=== PATIENT | male | born 1935 | race Caucasian/White ===

== ENCOUNTER 2016-08-09 20:18 | Inpatient (IN) | payer OTHER, BC ==
[~2016-08-09] VITALS: Ht 177.8 cm; Wt 81.6 kg
[~2016-08-09 20:18] MED LIST: AMLO-114 PO; ASCO500T3 PO; ASPCH81X PO; B-COTAB18 PO; CHOL100027 PO; COEN75CA PO; GLIM1TAB2 PO; LISI40TA PO; MULTTAB PO; NITR0.4S UT
[2016-08-09] MEDS ORDERED: SODIUM CHLORIDE 0.9% 1000ML 1,000 ML IV SCH (21:01)
[2016-08-09 21:18] LABS: BASO % 0.8 %; BASO ABS # 0.05 K/uL (0-0.2); COMPLETE YES; EOS % 8.6 %; IG% 0.2 %; LYMPH % 26.7 %; LYMPH ABS # 1.71 K/uL (1.2-3.4); MEAN CELL VOLUME 84.3 fL (80-100); MEAN CORPUSCULAR HEMOGLOBIN 30.3 pg (25-34); MEAN CORPUSCULAR HGB CONC 35.9 g/dl (32-36); MONO % 8.7 %; PLATELET COUNT 137 K/uL (130-400); RED BLOOD COUNT 5.22 M/uL (4.7-6.1); WHITE BLOOD COUNT 6.41 K/uL (4.8-10.8)
[2016-08-09 21:28] LABS: PROTHROMBIN TIME (PATIENT) 10.7 SECONDS (9.0-12.0)
[2016-08-09 21:38] LABS: BUN/CREATININE RATIO 27.5 (10-20); CALCIUM 9.4 mg/dl (8.5-10.1); CREATININE 1.5 mg/dl (0.60-1.40); POTASSIUM 4.4 mmol/L (3.5-5.1)
--- NOTE | 2016-08-09 21:50 | DIAGNOSTIC IMAGING REPORT ---
HEAD CT NONCONTRAST CT DOSE: 601.98 mGy.cm HISTORY: Stroke symptoms TECHNIQUE: Multiaxial CT images of the head were performed without the use of intravenous contrast. Automated exposure control was utilized for this study. Comparison: Head CT 03/19/2010. Findings: The paranasal sinuses and mastoid air cells are clear. The calvarium and skull base are intact. There is no mass, hematoma, midline shift, acute infarct. White matter hypodensity is nonspecific but suggestive of microvascular ischemic change. The ventricles and sulci demonstrate mild age-related involutional changes. There are few old small lacunar infarcts seen within the right thalamus and right periventricular white matter. Impression: No acute intracranial abnormality. Atrophy and microvascular ischemic changes. A few old lacunar infarcts. Electronically signed by: Arcadio Blackmon M.D. 08/09/2016 9:49 PM Dictated Date/Time: 08/09/2016 9:45 PM
[2016-08-09] MEDS ORDERED: ASPIRIN 81 MG CHEW PO STA (21:53)
[2016-08-09] MEDS ORDERED: ASCO500T16 PO (21:58)
[2016-08-09] MEDS ORDERED: MULT-506 PO (21:58)
[2016-08-09] MEDS ORDERED: B-COTAB18 PO (21:58)
[2016-08-09] MEDS ORDERED: CHOL1000 PO (21:58)
[2016-08-09 22:06] LABS: BETA-HYDROXYBUTYRATE 2.21 mg/dL (0.2-2.81); CKMB/CK RATIO 6.4 (0-3.0)
[2016-08-09 22:29] LABS: BENZODIAZEPINE, URINE NEG (NEG); COCAINE,URINE NEG (NEG); PHENCYCLIDINE, URINE NEG (NEG)
[2016-08-09] MEDS ORDERED: NITROGLYCERIN 0.4 MG SL PER TAB CHARGE SL PRN (23:00)
[2016-08-09] MEDS ORDERED: ACETAMINOPHEN 325 MG TAB PO PRN (23:00)
[2016-08-09] MEDS ORDERED: ONDANSETRON INJ 2 MG/ML 2 ML VIAL IV PRN (23:00)
[2016-08-09] MEDS ORDERED: NITROGLYCERIN 0.4 MG SL PER TAB CHARGE UT PRN (23:00)
[2016-08-09] MEDS ORDERED: LISI-729 PO (23:51)
[2016-08-09] MEDS ORDERED: GLC/500 PO (23:51)
[2016-08-10] VITALS (7 sets, daily range): BP systolic 117–196; BP diastolic 67–88; PULSE 59–74; TEMP 36.3–36.9; O2SAT 95–98; BMI 25.0
--- NOTE | 2016-08-10 | EMERGENCY ROOM VISIT NOTE ---
History Report prepared by Angélica: Ning Almonte Under the Supervision of: Dr. Miky Ang D.O. First contact with patient: 20:44 Chief Complaint: STROKE SYMPTOMS Stated Complaint: WEAKNESS History of Present Illness The patient is a 81 year old male who presents to the Emergency Room with complaints of resolved stoke-like symptoms that started 2 hours ago, around 1844. The patient came to the ED via ambulance The patient states that his felt like he was disoriented at dinner today. He states that his cooked [place]-like noodles for dinner and they are thin and look like spaghetti. While he was eating, his noticed a left-sided facial droop while a noodle was hanging out of the left side of his mouth. She also thought that he was having trouble finding the lid for the soy sauce. The patient's proceeded to call 911. The patient's is not at bedside yet, but she is coming. The patient states that he feels well and did not notice any of his symptoms. He denies chest pain, shortness of breath, nausea, vomiting, diarrhea, abdominal pain, and any weakness or numbness of his arms or legs. The patient also denies any recent trauma to his head. The patient states that he had a WI in April of 2013. The patient also states that he had two TIAs with the most recent being 6 years ago. The patient is not on any blood thinners, but occasionally takes a baby aspirin. With previous TIAs, he could tell that he had slurred speech but he felt well enough to drive himself to the hospital both times. Source of History: patient Onset: 2 hours ago, around 1844 Position: other (global) Quality: other (stroke-like symptoms) Timing: resolved Associated Symptoms: No SOB, No abdominal pain, No chest pain, No diarrhea, No nausea, No numbness, No vomiting, No weakness Review of Systems See HPI for pertinent positives & negatives. A total of 10 systems reviewed and were otherwise negative. Past Medical & Surgical Medical Problems: (1) ACS (acute coronary syndrome) (2) basal cell carcinoma back (3) Basal cell carcinoma of ear (4) Basal cell carcinoma of lower extremity (5) Benign hypertension (6) CAD (coronary artery disease) (7) Cerebrovascular disease (8) Chest pain (9) CKD (chronic kidney disease), stage III (10) Coronary artery disease (11) Diabetes mellitus type 2 (12) Dyslipidemia (13) Elevated Topronin (14) Elevated troponin (15) History of left bundle branch block (LBBB) (16) HTN (hypertension) (17) Hypertensive Urgency (18) Ischemic cardiomyopathy (19) Myocardial infarct (20) ALIDA on CPAP (21) Symptomatic sinus bradycardia (22) TIA (transient ischemic attack) Surgical Problems: (1) Cardiac pacemaker in situ (2) Percutaneous transluminal coronary angioplasty status Family History No pertinent family history Social History Smoking Status: Former Smoker Marital Status: Current/Historical Medications Scheduled Ascorbic Acid (Ascorbic Acid), 500 MG PO DAILY Aspirin (Aspirin Chewable), 81 MG PO DAILY B-Complex Vitamins (Vitamin B Complex), 1 TAB PO DAILY Coenzyme Q10 (Ubidecarenone) (Co Q-10), 1 CAP PO DAILY Lisinopril (Zestril), PO DAILY Metformin Hcl (Glucophage), PO BID Multivitamin (Multivitamin), 1 TAB PO DAILY Scheduled PRN Nitroglycerin (Nitrostat), 0.4 MG UT UD PRN for Chest Pain Allergies Coded Allergies: Clonidine (Verified Adverse Reaction, Severe, SEVERE BRADYCARDIA, 08/09/16) Physical Exam Vital Signs Date Time Temp Pulse Resp B/P Pulse Ox O2 Delivery O2 Flow Rate FiO2 08/09/16 21:56 61 18 159/81 94 Room Air 08/09/16 21:17 99 Room Air 08/09/16 20:51 60 08/09/16 20:30 36.5 72 18 200/122 99 Room Air 178/80 Physical Exam GENERAL: alert, sitting up in bed, well appearing, well nourished, no distress, non-toxic EYE EXAM: normal conjunctiva, PERRL and EOM's intact OROPHARYNX: no exudate, no erythema, lips, buccal mucosa, and tongue normal and mucous membranes are moist NECK: supple, no nuchal rigidity, no adenopathy, non-tender LUNGS: Clear to auscultation. Normal chest wall mechanics HEART: no murmurs, S1 normal and S2 normal ABDOMEN: abdomen soft, non-tender, normo-active bowel sounds, no masses, no rebound or guarding. BACK: Back is symmetrical on inspection and there is no deformity, no midline tenderness, no CVA tenderness. SKIN: no rashes and no bruising UPPER EXTREMITIES: upper extremities are grossly normal. LOWER EXTREMITIES: No pitting edema. NEURO EXAM: Normal sensorium, cranial nerves II-XII intact, normal speech, no weakness of arms, no weakness of legs. No drift. Finger to nose intact. Gross sensation intact. Medical Decision & Procedures ER Provider Diagnostic Interpretation: CT results have been interpreted by the radiologist and reviewed by me. HEAD CT NONCONTRAST Impression: No acute intracranial abnormality. Atrophy and microvascular ischemic changes. A few old lacunar infarcts. Electronically signed by: Arcadio Blackmon M.D. 08/09/2016 9:49 PM Dictated Date/Time: 08/09/2016 9:45 PM Laboratory Results 08/09/16 20:39 Red Blood Count 5.22, Mean Corpuscular Volume 84.3, Mean Corpuscular Hemoglobin 30.3, Mean Corpuscular Hemoglobin Concent 35.9, Mean Platelet Volume 10.0, Neutrophils (%) (Auto) 55.0, Lymphocytes (%) (Auto) 26.7, Monocytes (%) (Auto) 8.7, Eosinophils (%) (Auto) 8.6, Basophils (%) (Auto) 0.8, Neutrophils # (Auto) 3.53, Lymphocytes # (Auto) 1.71, Monocytes # (Auto) 0.56, Eosinophils # (Auto) 0.55, Basophils # (Auto) 0.05 08/09/16 20:39 Test 08/09/16 20:39 08/09/16 21:17 08/09/16 22:01 White Blood Count 6.41 K/uL (4.8-10.8) Red Blood Count 5.22 M/uL (4.7-6.1) Hemoglobin 15.8 g/dL (14.0-18.0) Hematocrit 44.0 % (42-52) Mean Corpuscular Volume 84.3 fL (80-100) Mean Corpuscular Hemoglobin 30.3 pg (25-34) Mean Corpuscular Hemoglobin Concent 35.9 g/dl (32-36) Platelet Count 137 K/uL (130-400) Mean Platelet Volume 10.0 fL (7.4-10.4) Neutrophils (%) (Auto) 55.0 % Lymphocytes (%) (Auto) 26.7 % Monocytes (%) (Auto) 8.7 % Eosinophils (%) (Auto) 8.6 % Basophils (%) (Auto) 0.8 % Neutrophils # (Auto) 3.53 K/uL (1.4-6.5) Lymphocytes # (Auto) 1.71 K/uL (1.2-3.4) Monocytes # (Auto) 0.56 K/uL (0.11-0.59) Eosinophils # (Auto) 0.55 K/uL (0-0.5) Basophils # (Auto) 0.05 K/uL (0-0.2) RDW Standard Deviation 39.3 fL (36.4-46.3) RDW Coefficient of Variation 12.8 % (11.5-14.5) Immature Granulocyte % (Auto) 0.2 % Immature Granulocyte # (Auto) 0.01 K/uL (0.00-0.02) Prothrombin Time 10.7 SECONDS (9.0-12.0) Prothromb Time International Ratio 1.0 (0.9-1.1) Activated Partial Thromboplast Time 26.0 SECONDS (21.0-31.0) Partial Thromboplastin Ratio 1.0 Anion Gap 11.0 mmol/L (3-11) Est Creatinine Clear Calc Drug Dose 40.6 ml/min Estimated GFR () 50.2 Estimated GFR (Non- 43.3 BUN/Creatinine Ratio 27.5 (10-20) Calcium Level 9.4 mg/dl (8.5-10.1) Total Creatine Kinase 84 U/L (39-308) Creatine Kinase MB 5.4 ng/ml (0.5-3.6) Creatine Kinase MB Ratio 6.4 (0-3.0) Troponin I 0.294 ng/ml (0-0.045) Beta-Hydroxybutyric Acid 2.21 mg/dL (0.2-2.81) Bedside Prothrombin Time INR 0.9 (0.9-1.1) Bedside Glucose 319 mg/dl (70-99) Urine Opiates Screen NEG (NEG) Urine Methadone, Qualitative NEG (NEG) Urine Barbiturates NEG (NEG) Urine Phencyclidine (PCP) Level NEG (NEG) Ur Amphetamine/Methamphetamine NEG (NEG) MDMA (Ecstasy) Screen NEG (NEG) Urine Benzodiazepines Screen NEG (NEG) Urine Cocaine Metabolite NEG (NEG) Urine Marijuana (THC) NEG (NEG) Laboratory results per my review. Medications Administered Medications (Trade) Dose Ordered Sig/Shamir Route Start Time Stop Time Status Last Admin Dose Admin Sodium Chloride (Nss 1000ml) 1,000 ml @ 50 mls/hr Q20H IV 08/09/16 21:01 09/08/16 21:00 08/09/16 21:01 50 MLS/HR Aspirin (Aspirin Chew) 324 mg NOW STAT PO 08/09/16 21:53 08/09/16 21:54 DC 08/09/16 22:15 324 MG ECG Indication: weakness Rate (beats per minute): 65 Rhythm: other (atrial paced) Findings: left axis deviation, other (LBBB) ED Course ED COURSE: Vital signs were reviewed and showed hypertension. The patients medical record was reviewed The above diagnostic studies were performed and reviewed. ED treatments and interventions as stated above. 2046: The patient was evaluated in room C3. A complete history and physical examination was performed. 2100: Ordered Sodium Chloride 1000 ml @ 50 mls/hr IV 2133: I reassessed the patient and he is feeling well. He just got back from CT and his is at bedside. His notes that he was confused and had trouble walking and using his left eye. She also noticed a facial droop. 2152: Ordered Aspirin 324 mg PO 2205: Upon reevaluation, the patient is resting comfortably. I discussed my findings with the patient and he understands and agrees with the treatment plan. Based on the patients age, coexisting illnesses, exam and lab findings the decision to treat as an inpatient was made. The patient remained stable while under my care. The patient will be evaluated for further management. 2207: I reviewed the patient's case with Dr. Sonal Xie. He will evaluate the patient for further management. Medical Decision Differential Diagnosis includes but is not limited to ischemic Stroke, hemorrhagic stroke, bells palsy, mass, neoplasm, migraine headache, seizure, subarachnoid hemorrhage, TIA, and transient global amnesia. Patient is an 81-year-old male who presents the ER brought in by ALS for stroke like symptoms. He was sitting at dinner table with his who noticed a left- sided facial droop, confusion and noticed that he was having trouble using his left arm. He does have a previous WI and 2 previous TIAs. Patient is completely at his baseline now. Completely neurologically intact. CT head was unremarkable. CBC was unremarkable. Creatinine was 1.5. Troponin was elevated at 0.29. Again he had no chest pain or shortness of breath. I'm uncertain of the significance of this. He has absolutely no chest pain or shortness of breath as discussed above. This be extremely atypical for any Dissection without any pain and consequently I did not perform any additional imaging. He was given aspirin following the negative CT head. EKG showed an atrial paced rhythm with a left axis and left bundle. No obvious signs of ischemia. He was allowed to have progressive hypertension for the likely TIA. Patient and family were updated at bedside. He was admitted to internal medicine with strokelike symptoms and elevated troponin. Consults Time Called: 2202 Consulting Physician: Dr. Sonal Xie Returned Call: 2207 I reviewed the patient's case with Dr. Sonal Xie. He will evaluate the patient for further management. Impression Primary Impression: TIA (transient ischemic attack) Additional Impressions: Elevated troponin HTN (hypertension) Scribe Attestation The scribe's documentation has been prepared under my direction and personally reviewed by me in its entirety. I confirm that the note above accurately reflects all work, treatment, procedures, and medical decision making performed by me. Departure Information Dispostion Being Evaluated By Hospitalist Wang Fernandez MD (PCP) Patient Instructions My [facility] Problem Qualifiers Primary Impression: TIA (transient ischemic attack) Transient cerebral ischemia type: unspecified Qualified Codes: G45.9 - Transient cerebral ischemic attack, unspecified Additional Impressions: HTN (hypertension) Hypertension type: unspecified secondary hypertension Qualified Codes: I15.9 - Secondary hypertension, unspecified
[2016-08-10] MEDS ORDERED: GLUCOSE 40% GEL 15 GM TUBE PO PRN (00:15)
[2016-08-10] MEDS ORDERED: DEXTROSE 50% 50 ML SYR IV PRN (00:15)
[2016-08-10] MEDS ORDERED: GLUCAGON FOR INJ 1 MG VIAL SQ PRN (00:15)
[2016-08-10] MEDS ORDERED: GLUCOSE 10 TABS/TUBE PO PRN (00:15)
[2016-08-10] MEDS ORDERED: HEPARIN IV BOLUS 4,000 UNIT in SYRINGE 0 ML IV ONE (01:30)
[2016-08-10] MEDS ORDERED: HEPARIN 25,000 UNIT/500ML D5W 500 ML IV PRN (01:30)
--- NOTE | 2016-08-10 02:15 | HISTORY & PHYSICAL EXAMINATION ---
DATE OF ADMISSION: 08/09/2016 PRIMARY CARE PROVIDER: Wang Nieto MD CHIEF COMPLAINT: Drooping and drooling from left side of the face at dinner tonight. HISTORY OF PRESENT COMPLAINT: He is an 81-year-old male with significant past medical history including chronic kidney disease, CAD status post old [place] and status post cardiac stent x2, ischemic cardiomyopathy, diabetes type 2, sinus node dysfunction status post pacemaker, hypertension, hyperlipidemia and also a history of obstructive sleep apnea. Apparently has been complaining of drooping and drooling from the left side of the face at dinner tonight. It was noticed by the that the food has been falling from the left side of the face and also some drooping on the same side. Later on, he has had some issues with coordination, especially involving the left upper extremity but did not have any other symptoms. With the history of TIA, they decided to come to the Emergency Room. He denies to have any headache, any blurred vision, any numbness, tingling or heaviness involving the face or any side of the body, any weakness involving any side of the body as well and all of the symptoms resolved in the Emergency Room. When asking questions, he mentioned that he has had an episode of difficulty in speech yesterday when he was driving back from [place] and on the way he has had this speech problem that lasted for a few minutes, but he did not tell it to anybody. He denies to have any chest pain, any shortness of breath, any palpitations. He does not have any fever, chills or rigors and denies to have any problem with urine and/or bowel habit. In the ER, he was hemodynamically stable without any neuro deficit and apparent blood test came back negative except troponin was noted to be 0.2. From that point, he was advised for admission to the telemetry unit. PAST MEDICAL HISTORY: Significant for CAD status post NSTEMI and status post cardiac stent placement, chronic kidney disease, ischemic cardiomyopathy, diabetes with diabetic retinopathy, hypertension, hyperlipidemia, malignant neoplasm of skin, obstructive sleep apnea, sinus node dysfunction status post cardiac pacemaker. PAST SURGICAL HISTORY: Significant for cardiac stent x2 and pacemaker placement, Mohs surgery involving the skin, umbilical hernia repair at the age of 6. FAMILY HISTORY: Significant that parents and siblings have history of hypertension, diabetes. SOCIAL HISTORY: He is . He has 5 children. He quit smoking 40 years ago. He does not drink and he has been quite active. ALLERGIES: HE IS ALLERGIC TO CLONIDINE. MEDICATIONS: He has been on ascorbic acid 500 mg daily, aspirin 81 mg daily, B complex 1 tablet daily, vitamin D3 1000 units daily, coenzyme Q10 75 mg daily, multivitamin 1 tablet daily, Nitrostat 0.4 mg daily. He also takes amlodipine 10 mg daily, atorvastatin 40 mg daily, Amaryl 1 mg daily, lisinopril 40 mg daily, hydralazine 1 tablet 3 times daily, ferrous sulfate 325 mg daily. REVIEW OF SYSTEMS: Other systems reviewed are unremarkable except mentioned in the H\T\P. PHYSICAL EXAMINATION: GENERAL: On examination in the Emergency Room, he was not having any acute distress. VITAL SIGNS: Temperature 36.5, pulse of 61, blood pressure 159/81, saturation 94% on room air. HEENT: Unremarkable. No facial asymmetry. NECK: Supple, no JVD, no bruit. CHEST: Clear to auscultation bilaterally. HEART: S1, S2 regular. ABDOMEN: Soft, benign, nontender, no organomegaly. Bowel sounds present. EXTREMITIES: Negative for any edema. MUSCULOSKELETAL: Did not show any acute arthritis involving any joint. CENTRAL NERVOUS SYSTEM: He was alert, awake, oriented x3 and no focal sensory and/or motor deficit appreciated. LABORATORY DATA: Noted today, white count was 6.41, H\T\H 15.8/44.0, platelet was 137. Sodium 134, potassium 4.4, chloride 98, carbon dioxide 25, BUN 41, creatinine 1.50, POC glucose 319, random glucose 314. CK was 84, MB 5.4 and troponin was 0.294. Beta hydroxybutyric acid 2.21. PT/INR unremarkable. Urine tox screen negative. Head CT: No acute intracranial abnormality, atrophy and microvascular ischemic changes, few old lacunar infarcts noted as well. EKG: Paced rhythm, rate of 66 per minute, difficult to comment about T-wave abnormality. IMPRESSION AND PLAN: 1. Transient ischemic attack. The patient's symptoms has already resolved. The cause could be embolic,thrombotic and Bleeding has been ruled out. He has a history of prior TIAs. We will get carotid ultrasound, echocardiogram. Neurology consultation while in the hospital and further investigations as per neurology. We will continue his aspirin for the time being. 2. Increased troponin, does not have any chest pain as such, but troponin has been significantly elevated.Could be secondary to CKD.Has extensive h/o CAD and con not rule out cardiac causes at this time. We will start with intravenous heparin, cardiology consultation, echocardiogram and serial cardiac enzymes. 3. Coronary artery disease status post cardiac stent. Management as above. Continue current medications.Patient is not having any symptoms now. 4.CKD -Creatinine is 1.5 today.Baseline around 1.4.Advised more fluid intake.May need small amount of IVF. 5. Hypertension. Blood pressure seems to be controlled at this time. Continue with current medications. 6. Diabetes type 2. We will hold oral medications and put him on sliding scale coverage while in the hospital. 7. Sleep apnea. Does not use any CPAP and/or BiPAP. 8. Gastrointestinal prophylaxis with Protonix. 9. Deep venous thrombosis prophylaxis with heparin. 10. Code status: He will be a full code and further management will depend on clinical course. In my clinical judgment, the beneficiary meets criteria as per CMS for 2-midnight stay in the hospital. RENE
[2016-08-10 04:53] LABS: HEMATOCRIT 43.4 % (42-52); MEAN CELL VOLUME 85.6 fL (80-100); MEAN CORPUSCULAR HEMOGLOBIN 30.4 pg (25-34); MEAN CORPUSCULAR HGB CONC 35.5 g/dl (32-36); MEAN PLATELET VOLUME 9.9 fL (7.4-10.4); PLATELET COUNT 127 K/uL (130-400); RED BLOOD COUNT 5.07 M/uL (4.7-6.1); WHITE BLOOD COUNT 6.75 K/uL (4.8-10.8)
[2016-08-10 05:29] LABS: CREATININE 1.6 mg/dl (0.60-1.40)
[2016-08-10 05:30] LABS: CALCIUM 9.1 mg/dl (8.5-10.1); CHOLESTEROL/HDL RATIO 3.1; CKMB/CK RATIO 5.4 (0-3.0); MAGNESIUM 2.2 mg/dl (1.8-2.4); PHOSPHORUS 3.9 mg/dl (2.5-4.9); POTASSIUM 4.5 mmol/L (3.5-5.1); THYROID STIMULATING HORMONE 1.45 uIu/ml (0.300-4.500)
[2016-08-10 05:50] LABS: ESTIMATED AVERAGE GLUCOSE 315 mg/dl; HA1C FLAG Normal (Normal)
[2016-08-10] MEDS ORDERED: SODIUM CHLORIDE 0.9% 1000ML 1,000 ML IV SCH (06:30)
--- NOTE | 2016-08-10 06:38 | DIAGNOSTIC IMAGING REPORT ---
CHEST ONE VIEW PORTABLE CLINICAL HISTORY: CARDIOMYOPATHY COMPARISON STUDY: 08/23/2015 FINDINGS: The heart is mildly enlarged. There is a left subclavian dual-chamber central venous pacemaker present. There is no failure. There is no focal pulmonary consolidation. There are no pleural effusions.[ IMPRESSION: No active disease in the chest. Electronically signed by: Robert Lyons M.D. 08/10/2016 6:37 AM Dictated Date/Time: 08/10/2016 6:36 AM
--- NOTE | 2016-08-10 06:45 | DIAGNOSTIC IMAGING REPORT ---
ULTRASOUND OF THE CAROTID ARTERIES CLINICAL HISTORY: Recurrent TIA. Possible carotid stenosis. COMPARISON STUDY: 03/20/2010 TECHNIQUE: Real-time, grayscale, and color Doppler sonography of the carotid arteries was performed. Imaging reviewed in the transverse and longitudinal planes. NASCET criteria was utilized for stenosis calcification. FINDINGS: There is moderate atherosclerotic plaque present right greater than left. The peak systolic velocity within the right internal carotid artery is 56 cm/sec. There is dampened waveform. The systolic velocity ratio of right internal to common carotid artery is 1.3. The peak systolic velocity within the left internal carotid artery is 123 cm/sec. The systolic velocity ratio left internal to common carotid artery is 1.3. No flow is visualized in the right vertebral artery. There are elevated velocities in the right external carotid artery. IMPRESSION: Abnormal study with interval development of a dampened right internal carotid artery waveforms. This may indicate a distal or internal carotid artery stenosis not directly visualized. CT angiography should be considered in follow-up. Nonvisualization of the right vertebral artery. Electronically signed by: Robert Lyons M.D. 08/10/2016 6:43 AM Dictated Date/Time: 08/10/2016 6:37 AM
[2016-08-10] MEDS ORDERED: PERFLUTREN LIPID MICROSPHERE (DEFINITY) IV ONE (07:36)
[2016-08-10] MEDS: INSULIN ASPART 100 UNITS/ML 3 ML PEN SC SCH ×4 (07:47→21:02)
[2016-08-10] MEDS: MULTIVITAMIN TAB PO SCH (07:50)
[2016-08-10] MEDS: CHOLECALCIFEROL 1000 INTER.UNIT TAB PO SCH (07:50)
[2016-08-10] MEDS: VITAMIN B COMPLEX TAB PO SCH (07:50)
[2016-08-10] MEDS: ASPIRIN 81 MG ECTAB PO SCH (07:51)
[2016-08-10] MEDS: AMLODIPINE BESYLATE 5 MG TAB PO SCH (07:51)
[2016-08-10] MEDS: ATORVASTATIN 40 MG TAB PO SCH (07:51)
--- NOTE | 2016-08-10 08:47 | ECHOCARDIOGRAM REPORT ---
*NOTICE TO RECEIVING REPUBLICAN AGENCY This information is strictly Confidential and protected under [place] law. [place] law prohibits you from making any further disclosure of this information unless further disclosure is expressly permitted by the written consent of the person to whom it pertains or is authorized by law. A general authorization for the release of medical or other information is not sufficient for this purpose. Hospital accepts no responsibility if the information is made available to any other person, INCLUDING THE PATIENT. Interpretation Summary * Name: ABIODUN VYAS Study Date: 08/10/2016 07:06 AM BP: 164/81 mmHg * Patient Location: C.2T\S\S229\S\1 HR: 62 * : 1935 (M/d/yyy) Gender: Male Height: 70 in * Age: 81 yrs Ethnicity: CA Weight: 180 lb * Ordering Physician: Trino Pruitt * Referring Physician: Self, Referred * Performed By: Liborio Velázquez RDCS * * Reason For Study: Chest pain, CAD S/P stents, TIA * BSA: 2.0 m2 * -- Conclusions -- * Moderately dilated LV chamber size with normal wall thickness. * Severely reduced LV systolic function with severe global hypokinesis, EF 28% by biplane method of discs. * Grade I diastolic dysfunction. * The right ventricular cavity size is normal (basal dimension <4.2 cm in right ventricular apical 4-chamber view). Reduced RV systolic function by TAPSE. * No significant valvular pathology. * Moderate left atrial enlargement. Procedure Details * A complete two-dimensional transthoracic echocardiogram was performed (2D, M-mode, Doppler and color flow Doppler). * The study was technically difficult. * There were technical limitations due to patient'sPoor acoustic windows secondary to severe lung disease. * The study was technically difficult, but visualization was adequate with the administration of Definity ultrasound contrast. * A contrast injection of Definity was performed to improve assessment of LV function. * Contrast was injected into an intravenous site in the left arm. * One vial of Definity ultrasound contrast was diluted in normal saline to a total volume of 10 ml. A total of '3' ml of solution was administered during imaging. * Lot # [id number] of Definity utilized for procedure. * Expiration date . * The attending nurse who injected the contrast agent was BHUPINDER Roberts. * A saline contrast injection was performed to assess for cardiac shunting. * The injection was performed through an intravenous line in the left arm. * A total of 10 cc of agitated saline was given. * The attending nurse who injected the saline contrast was BHUPINDER Roberts. Left Ventricle * The left ventricle is moderately dilated. * There is no thrombus. * There is normal left ventricular wall thickness. * Left ventricular systolic function is severely reduced. * Ejection Fraction = 25-30%. Right Ventricle * The right ventricular cavity size is normal (basal dimension <4.2 cm in right ventricular apical 4-chamber view). * There is a pacemaker lead in the right ventricle. * The right ventricular systolic function is reduced as assessed by tricuspid annular plane systolic excursion (TAPSE) (TAPSE <1.6 cm). Atria * The left atrium is moderately dilated. * Right atrial size is normal. * No ASD detected; PFO is not assessed. Mitral Valve * The mitral valve is normal in structure and function. Tricuspid Valve * The tricuspid valve is normal in structure and function. Aortic Valve * The aortic valve is not well visualized. * No hemodynamically significant valvular aortic stenosis. * There is no significant aortic regurgitation. Pulmonic Valve * The pulmonary valve is not well seen, but the Doppler examination is normal without significant regurgitation or stenosis. Great Vessels * The aortic root and proximal ascending aorta are normal sized. Pericardium/Pleural * There is no pericardial effusion. Left Ventricular Diastolic Function * Grade I diastolic dysfunction, (abnormal relaxation pattern). MMode 2D Measurements and Calculations IVSd 1.2 cm IVSs 1.5 cm LVIDd 6.3 cm LVIDs 5.7 cm LVPWd 0.97 cm LVPWs 1.0 cm IVS/LVPW 1.3 FS 9.6 % EDV(Teich) 200.2 ml ESV(Teich) 158.9 ml EF(Teich) 20.7 % EDV(cubed) 248.5 ml ESV(cubed) 183.4 ml EF(cubed) 26.2 % % IVS thick 25.9 % % LVPW thick 4.9 % LV mass(C)d 299.7 grams LV mass(C)dI 150.2 grams/m\S\2 LV mass(C)s 311.7 grams LV mass(C)sI 156.2 grams/m\S\2 SV(Teich) 41.4 ml SI(Teich) 20.7 ml/m\S\2 SV(cubed) 65.1 ml SI(cubed) 32.6 ml/m\S\2 EPSS 2.1 cm Ao root diam 3.1 cm Ao root area 7.3 cm\S\2 ACS 1.4 cm LA dimension 4.7 cm asc Aorta Diam 2.9 cm LA/Ao 1.5 LVOT diam 2.1 cm LVOT area 3.5 cm\S\2 LVAd ap4 38.6 cm\S\2 LVLd ap4 8.9 cm EDV(MOD-sp4) 136.0 ml LVAs ap4 31.7 cm\S\2 LVLs ap4 8.2 cm ESV(MOD-sp4) 98.0 ml EF(MOD-sp4) 27.9 % LVAd ap2 32.1 cm\S\2 LVLd ap2 8.4 cm EDV(MOD-sp2) 102.0 ml LVAs ap2 26.8 cm\S\2 LVLs ap2 8.0 cm ESV(MOD-sp2) 73.0 ml EF(MOD-sp2) 28.4 % SV(MOD-sp4) 38.0 ml SI(MOD-sp4) 19.0 ml/m\S\2 SV(MOD-sp2) 29.0 ml SI(MOD-sp2) 14.5 ml/m\S\2 Doppler Measurements and Calculations MV E max parvez 39.0 cm/sec MV A max parvez 101.2 cm/sec MV E/A 0.39 MV dec time 0.30 sec Ao V2 max 132.0 cm/sec Ao max PG 7.0 mmHg Ao max PG (full) 5.0 mmHg MATILDA(V,A) 1.8 cm\S\2 MATILDA(V,D) 1.8 cm\S\2 LV V1 max PG 2.0 mmHg LV V1 max 70.1 cm/sec PA V2 max 93.9 cm/sec PA max PG 3.5 mmHg TR max parvez 189.4 cm/sec
[2016-08-10] MEDS ORDERED: LISINOPRIL 40 MG TAB PO SCH (09:00)
[2016-08-10] MEDS ORDERED: ASPIRIN 81 MG CHEW PO SCH (09:00)
[2016-08-10] MEDS ORDERED: NON-FORMULARY MEDICATION (Coenzyme Q10 (Ubidecarenone) (Co Q-10) 1 CAP) PO SCH (09:00)
[2016-08-10 10:09] LABS: PARTIAL THROMBOPLASTIN RATIO 1.7
--- NOTE | 2016-08-10 11:49 | Progress Note ---
Internal Med Progress Note Date of Service: Aug 10, 2016. Provider Documentation: SUBJECTIVE: Patient is doing well. No chest pain, sob, localized weakness, numbness/tingling, fever, chills, headaches OBJECTIVE: Vital Signs-as noted below Exam: General-AAOX3, no distress Eyes-No icterus Neck-Supple, No JVD Lungs-AEBE, no wheezing Heart-S1, S2 normal, no murmurs Abdomen-Soft, non tender, non distended, BS present Extremities-No edema Neuro-Cranial nerves intact, Power 5/5 all extremities Lab data as noted below. ASSESSMENT & PLAN: IMPRESSION AND PLAN: TIA- Patient came in with c/o left facial droop/drooling followed by some motor weakness in left upper extremity, unable to specify. Resolved on arrival to ED No focal deficit on my evaluation Risk factors: TIA X 2 in past, HTN, DM, CAD -On ASA 81 mg daily (Patient stopped taking his medications x 1 month). -Work up- Carotid US/CTA Head/Neck as has right carotid artery stenosis in past , Echocardiogram - Moderately dilated LV chamber size with normal wall thickness ; Severely reduced LV systolic function with severe global hypokinesis, EF 28% by biplane method of discs; Grade I diastolic dysfunction; Moderate LA dilation ELEVATED TROPONIN, Likely secondary to CKD . No cardiac symptoms on this admission -Does have hx of CAD with stents in past with CHF systolic/Ischemic cardiomyopathy with EF 28% -Trop 0.294, 0.244; EKG no acute changes -Continue with ASA, Statin. Discontinue IV Heparin as not indicated -Echo- Moderately dilated LV chamber size with normal wall thickness; Severely reduced LV systolic function with severe global hypokinesis, EF 28% by biplane method of discs; Grade I diastolic dysfunction; Moderate LA dilation HX OF CAD S/P STENTS/SEVERE ISCHEMIC CARDIOMYOPATHY -EF 28% -On ASA, Atorvastatin. Not on lasix at home -Monitor CKD-III Baseline 1.5, near baseline -Monitor DM-II -Hold PO meds, ISS ALIDA- Does not use CPAP/BIPAP GI PROPHYLAXIS -Protonix PO DVT PROPHYLAXIS Heparin SQ CODE STATUS Full code DISPOSITION Continue on tele monitoring Vital Signs: Date Time Temp Pulse Resp B/P Pulse Ox O2 Delivery O2 Flow Rate FiO2 08/10/16 11:51 36.9 60 18 117/67 95 Room Air 08/10/16 07:55 36.6 62 16 148/79 97 Room Air 08/10/16 04:00 Room Air 08/10/16 03:29 36.3 59 15 164/81 98 Room Air 08/10/16 00:46 36.4 67 18 196/88 98 Room Air 08/09/16 23:50 60 16 136/71 97 Room Air 08/09/16 21:56 61 18 159/81 94 Room Air 08/09/16 21:17 99 Room Air 08/09/16 20:51 60 08/09/16 20:30 36.5 72 18 200/122 99 Room Air 178/80 Lab Results: Results Past 24 Hours Test 08/09/16 20:39 08/09/16 21:17 08/09/16 22:01 08/10/16 04:45 Range/Units White Blood Count 6.41 6.75 4.8-10.8 K/uL Red Blood Count 5.22 5.07 4.7-6.1 M/uL Hemoglobin 15.8 15.4 14.0-18.0 g/dL Hematocrit 44.0 43.4 42-52 % Mean Corpuscular Volume 84.3 85.6 80-100 fL Mean Corpuscular Hemoglobin 30.3 30.4 25-34 pg Mean Corpuscular Hemoglobin Concent 35.9 35.5 32-36 g/dl Platelet Count 137 127 130-400 K/uL Mean Platelet Volume 10.0 9.9 7.4-10.4 fL Neutrophils (%) (Auto) 55.0 % Lymphocytes (%) (Auto) 26.7 % Monocytes (%) (Auto) 8.7 % Eosinophils (%) (Auto) 8.6 % Basophils (%) (Auto) 0.8 % Neutrophils # (Auto) 3.53 1.4-6.5 K/uL Lymphocytes # (Auto) 1.71 1.2-3.4 K/uL Monocytes # (Auto) 0.56 0.11-0.59 K/uL Eosinophils # (Auto) 0.55 0-0.5 K/uL Basophils # (Auto) 0.05 0-0.2 K/uL RDW Standard Deviation 39.3 40.3 36.4-46.3 fL RDW Coefficient of Variation 12.8 12.9 11.5-14.5 % Immature Granulocyte % (Auto) 0.2 % Immature Granulocyte # (Auto) 0.01 0.00-0.02 K/uL Prothrombin Time 10.7 9.0-12.0 SECONDS Prothromb Time International Ratio 1.0 0.9-1.1 Activated Partial Thromboplast Time 26.0 21.0-31.0 SECONDS Partial Thromboplastin Ratio 1.0 Sodium Level 134 138 136-145 mmol/L Potassium Level 4.4 4.5 3.5-5.1 mmol/L Chloride Level 98 100 98-107 mmol/L Carbon Dioxide Level 25 30 21-32 mmol/L Anion Gap 11.0 8.0 3-11 mmol/L Blood Urea Nitrogen 41 40 7-18 mg/dl Creatinine 1.50 1.60 0.60-1.40 mg/dl Est Creatinine Clear Calc Drug Dose 40.6 38.0 ml/min Estimated GFR () 50.2 46.5 Estimated GFR (Non- 43.3 40.1 BUN/Creatinine Ratio 27.5 25.0 10-20 Random Glucose 314 284 70-99 mg/dl Calcium Level 9.4 9.1 8.5-10.1 mg/dl Total Creatine Kinase 84 69 39-308 U/L Creatine Kinase MB 5.4 3.7 0.5-3.6 ng/ml Creatine Kinase MB Ratio 6.4 5.4 0-3.0 Troponin I 0.294 0.244 0-0.045 ng/ml Beta-Hydroxybutyric Acid 2.21 0.2-2.81 mg/dL Bedside Prothrombin Time INR 0.9 0.9-1.1 Bedside Glucose 319 70-99 mg/dl Urine Opiates Screen NEG NEG Urine Methadone, Qualitative NEG NEG Urine Barbiturates NEG NEG Urine Phencyclidine (PCP) Level NEG NEG Ur Amphetamine/Methamphetamine NEG NEG MDMA (Ecstasy) Screen NEG NEG Urine Benzodiazepines Screen NEG NEG Urine Cocaine Metabolite NEG NEG Urine Marijuana (THC) NEG NEG Estimated Average Glucose 315 mg/dl Hemoglobin A1c 12.6 4.5-5.6 % Phosphorus Level 3.9 2.5-4.9 mg/dl Magnesium Level 2.2 1.8-2.4 mg/dl Triglycerides Level 78 0-150 mg/dl Cholesterol Level 172 0-200 mg/dl HDL Cholesterol 55 mg/dl LDL Cholesterol, Calculated 101 mg/dl VLDL Cholesterol, Calculated 16 mg/dl Cholesterol/HDL Ratio 3.1 Thyroid Stimulating Hormone (TSH) 1.450 0.300-4.500 uIu/ml Chemistry Specimen Hemolysis Test 08/10/16 06:37 08/10/16 08:50 08/10/16 10:49 08/10/16 11:17 Range/Units Bedside Glucose 251 227 70-99 mg/dl Activated Partial Thromboplast Time 44.6 21.0-31.0 SECONDS Partial Thromboplastin Ratio 1.7 Total Creatine Kinase 65 39-308 U/L Creatine Kinase MB 4.3 0.5-3.6 ng/ml Creatine Kinase MB Ratio 6.6 0-3.0 Troponin I 0.201 0-0.045 ng/ml
[2016-08-10 11:52] LABS: CKMB/CK RATIO 6.6 (0-3.0)
[2016-08-10] MEDS ORDERED: OPTIRAY 320 IV PRN (12:00)
--- NOTE | 2016-08-10 12:06 | CARDIOLOGY CONSULTATION ---
DATE OF CONSULTATION: 08/10/2016 CONSULTATION REQUESTED BY: Dr. Pruitt. REASON FOR CONSULTATION: Minimally elevated troponin level. HISTORY OF PRESENT ILLNESS: Mr. Milian is a very pleasant 81-year-old gentleman who normally follows with Dr. Baird of our cardiology practice. He presented to [facility] on 08/09/2016 with a report of drooling and facial droop along with slurred speech. This was reported by the patient's . The patient does remember the episode and states that he did not have any other complaints at that time. Specifically denied experiencing any chest pain, shortness of breath, palpitations, lightheadedness, dizziness, or syncope. Of note, the patient states he has not taken his medications in over a month. He states he just has not felt like taking them. His prescriptions have run out and he is not bothered to refill them. He states that he takes his aspirin rarely and cannot provide further explanation as to why. He does state although he takes a multivitamin on a regular basis. Currently, he is without complaint at rest. He denies experiencing any chest pain whatsoever. Upon presentation to the Emergency Room, a troponin level was obtained and was found to be a level of 0.2 and he was admitted to telemetry for further evaluation. PAST SURGICAL HISTORY: 1. Dual chamber permanent pacemaker placement - August 2015. 2. Hernia repair. 3. Mohs surgery. MEDICAL ILLNESSES: 1. Ischemic cardiomyopathy. 2. Coronary artery disease status post PCI. 3. Chronic left bundle branch block. 4. Hypertension. 5. Stage III chronic kidney disease. 6. Diabetes. 7. History of CVA. 8. Hyperlipidemia. 9. Obstructive sleep apnea on CPAP. 10. Basel cell carcinoma status post removal. 11. Sinus node dysfunction status post permanent pacemaker placement. FAMILY HISTORY: Noncontributory. SOCIAL HISTORY: The patient is a former smoker of pipes and cigars. Denies any alcohol. He is and lives at home with his . REVIEW OF SYSTEMS: As per HPI, all other review of systems reviewed and negative at this time. ALLERGIES: CLONIDINE. MEDICATIONS AN OUTPATIENT: Again, the patient states he has not taken any of his prescriptions, but his regimen is supposed to include: 1. Aspirin 81 mg daily. 2. Amlodipine 10 mg daily. 3. Atorvastatin 40 mg daily. 4. Coenzyme Q10 daily. 5. Hydralazine t.i.d. 6. Lisinopril 40 mg daily. 7. Iron sulfate daily. PHYSICAL EXAMINATION: VITAL SIGNS: Temperature 36.6, pulse 62, respiratory rate 12, blood pressure 148/79. GENERAL: Awake, alert, oriented x3 in no acute distress. HEENT: Normocephalic, atraumatic. Pupils equal, round, and reactive to light and accommodation. Extraocular muscles intact. Anicteric sclerae. Moist mucous membranes. NECK: No JVD, no bruit. CARDIOVASCULAR: Regular. Positive S4. Normal S1 and S2. A 3/6 mid to late systolic ejection murmur, greatest at the right sternal border second intercostal space without radiation. No rubs. PULMONARY: Clear to auscultation bilaterally. No rales, rhonchi, or wheezing. ABDOMEN: Bowel sounds x4, soft. No rebound, guarding, tenderness. No organomegaly. EXTREMITIES: No clubbing, cyanosis or edema. +2 pedal pulses bilaterally. SKIN: Warm and dry. TEST RESULTS: A 12-lead EKG performed in the Emergency Department independently reviewed at this time shows an atrially paced rhythm at 65 beats per minute. A 2D echocardiogram was read as mildly dilated LV chamber size with normal wall thickness, severely reduced LV systolic function with severe global hypokinesis, EF 28%, grade 1 diastolic dysfunction, reduced RV systolic function by TAPSE, no significant valvular pathology and moderate left atrial enlargement. LABORATORY STUDIES OF SIGNIFICANCE: BUN 40, creatinine 1.6. Troponin of 0.24 with a CPK of 69. IMPRESSION: 1. Minimal troponin elevation in the setting of acute on chronic kidney disease. 2. Underlying ischemic cardiomyopathy. 3. Medical noncompliance. 4. Transient ischemic attack. 5. Sinus node dysfunction status post permanent pacemaker placement. RECOMMENDATIONS: Given the patient's lack of cardiac symptoms along with his underlying ischemic cardiomyopathy as well as his impaired renal function, I do not believe his minimal troponin elevation represents acute coronary syndrome. So, no further cardiac testing or intervention is necessary at this time. The patient was instructed no uncertain terms that he must take his medications as directed and that his noncompliance most likely precipitated this event. His outpatient medications have been restarted. Okay to transfer off telemetry to home from a cardiac standpoint.
--- NOTE | 2016-08-10 12:29 | DIAGNOSTIC IMAGING REPORT ---
CT NECK ANGIO WITH CONTRAST CLINICAL HISTORY: Transient ischemic attack. Abnormal carotid Doppler ultrasound with dampened waveforms on the right. COMPARISON STUDY: Carotid Doppler ultrasound dated 08/09/2016 TECHNIQUE: CT angiography was performed from the aortic arch to the skull base. MIP imaging was performed. The patient was scanned in a dynamic helical fashion during intravenous administration of 118 cc of Optiray 320. CT DOSE: 495.44 mGy.cm Technique: CT angiogram of the carotid and vertebral arteries was obtained using intravenous contrast and 3-D reconstruction. NASCET criteria was utilized. Findings: There is a critical (95+ percent) stenosis of the right internal carotid artery origin. There is a 60% stenosis of the right external carotid artery origin. There are mild to moderate atheromatous changes present within the carotid siphon. There is extensive atheromatous plaque involving the left internal carotid artery origin. There is a 55% diameter stenosis of the left internal carotid artery origin The left vertebral artery is dominant. There is no evidence of left vertebral artery stenosis. The right vertebral artery is a tiny vessel. IMPRESSION: Critical (greater than 95%) stenosis of the right internal carotid artery origin. Electronically signed by: Robert Lyons M.D. 08/10/2016 12:28 PM Dictated Date/Time: 08/10/2016 12:18 PM
[2016-08-10] MEDS ORDERED: NURSING VERBAL MED ORDER ONE (13:00)
[2016-08-10] MEDS: SODIUM CHLORIDE 0.9% 1000ML 1,000 ML IV SCH (13:27)
--- NOTE | 2016-08-10 15:25 | NEUROLOGY CONSULTATION ---
DATE OF CONSULTATION: 08/10/2016 REASON FOR CONSULTATION: Transient ischemic attack. HISTORY OF PRESENT ILLNESS: The patient is an 81-year-old right-handed male with a history of chronic kidney disease, coronary artery disease status post old [place], cardiac stenting, ischemic cardiomyopathy, diabetes type 2, status post pacemaker, hypertension, hyperlipidemia, obstructive sleep apnea and prior history of transient ischemic attack. On this background, the evening of admission, his noted a left facial droop, perhaps some dysphasia and that he was somewhat fumbling with his left hand. Symptoms resolved within an hour, not associated with any headache. Apparently, he has had other transient ischemic attacks in the past. He had 1 episode many years ago of garbled speech. He has had another episode of generalized weakness, that episode was thought possibly be related to hypoglycemia due to the patient's family, although no documented hypoglycemia were noted. Two years ago, the patient had an episode of dysarthria and ataxia, lasting several hours. The patient has otherwise been well. Two days prior to admission, he was attempting to jog and noted some intermittent shortness of breath. He has otherwise been well. He has not had any head or neck injury, chest pain, palpitations, fevers, chills, sweats, medical or dental procedures. PAST MEDICAL HISTORY: Notable for the above. He has had skin cancer, obstructive sleep apnea. The patient has a history of rheumatic fever. No ASD detected, PFO not assessed. PAST SURGICAL HISTORY: Cardiac stent, pacemaker, Mohs surgery, umbilical hernia repair. FAMILY HISTORY: Hypertension, diabetes. SOCIAL HISTORY: Remote smoking. Does not drink alcohol. He is physically active and continues to work. ALLERGIES: HE IS ALLERGIC TO CLONIDINE. MEDICATIONS: On admission, ascorbic acid, aspirin, B complex, vitamin D3, CoQ10, multiple vitamin, Nitrostat, amlodipine, atorvastatin, Amaryl, lisinopril, hydralazine, iron. LABORATORY DATA: PT on admission 10.7. PTT 26. Chemistry profile, BUN and creatinine on admission 41 and 1.5, glucose 314. Troponin 0.294. Tox screen negative. White count 6.41, H\T\H 15.8/44, platelet count 137. A carotid ultrasound showing dampened right internal carotid artery waveforms, which might indicate distal or internal carotid stenosis not directly visualized. CT angiography should be considered, nonvisualization of the right vertebral artery. CT of the head, multiple lacunar infarctions. There is some low density in the posterior right parietal region of uncertain age. EKG on admission, atrial paced rhythm with prolonged AV conduction, left axis deviation and left bundle branch block. Echocardiography, EF of 28%. Moderately dilated left ventricular chamber size with normal wall thickness. Moderate left atrial enlargement. PHYSICAL EXAMINATION: VITAL SIGNS: 36.6, 62, 16, 148/79, 97%. GENERAL: The patient is awake and alert, normal speech and language. No right/left confusion. No aphasia. NECK: There are no carotid bruits. HEART: No heart murmurs. Heart is regular rate and rhythm. LUNGS: Clear. ABDOMEN: Soft. EXTREMITIES: Posterior tibial pulses intact. No calf swelling or tenderness is noted. NEUROLOGIC: Pupils were equal, round, and reactive to light. Could not visualize the optic nerve secondary to cataract. There are normal araiza. No visual extinction, motility. Normal facial sensation and facial symmetry. Tongue is midline. Speech is nondysarthric. Motor: Full strength. I do not appreciate a drift. There is equal rapid alternating movement. Symmetric reflexes. Downgoing toes. [id number] and [id number] are normal. Sensation is intact to light touch, temperature and vibration. His gait is unremarkable. Sensory: There is double simultaneous extinction on the left. IMPRESSION: 1. This patient appears to have had a mild right MCA infarction with the only real finding consisting of double simultaneous extinction on the left. I would recommend one of two things, determining if his pacemaker is MRI compatible. If indeed it is, performing an MRI of the brain with an MRA of the head and neck to further determine whether or not there is a distal right internal carotid stenosis. 2. Another option would be a CTA. I do not know if he will meet criteria for dye with a BUN and creatinine of 40/1.6, but feel this is a very important diagnostic study. 3. Telemetric monitoring is appropriate. Given his low ejection fraction and dilated left atrium, I am concerned about the presence of atrial fibrillation and would have a low threshold, placing him on Coumadin. Deferred to primary care regarding safety of dye related studies in this patient. We will continue to follow with you. RENE
[2016-08-10 17:48] LABS: CKMB/CK RATIO 6.3 (0-3.0)
[2016-08-10 23:40] LABS: CKMB/CK RATIO 6.6 (0-3.0)
[2016-08-11 04:29] VITALS: BP 166/82; PULSE 61; TEMP 37; O2SAT 98
[2016-08-11 05:40] LABS: HEMATOCRIT 42.1 % (42-52); MEAN CELL VOLUME 86.6 fL (80-100); MEAN CORPUSCULAR HGB CONC 34.7 g/dl (32-36); PLATELET COUNT 121 K/uL (130-400); RED BLOOD COUNT 4.86 M/uL (4.7-6.1); WHITE BLOOD COUNT 6.33 K/uL (4.8-10.8)
[2016-08-11 06:22] LABS: BUN/CREATININE RATIO 21.9 (10-20); CALCIUM 8.2 mg/dl (8.5-10.1); CREATININE 1.4 mg/dl (0.60-1.40); POTASSIUM 3.7 mmol/L (3.5-5.1)
[2016-08-11 07:41] VITALS: BP 134/71; PULSE 63; TEMP 36.6; O2SAT 98
[2016-08-11] MEDS: AMLODIPINE BESYLATE 5 MG TAB PO SCH (08:05)
[2016-08-11] MEDS: CHOLECALCIFEROL 1000 INTER.UNIT TAB PO SCH (08:05)
[2016-08-11] MEDS: ASPIRIN 81 MG ECTAB PO SCH (08:06)
[2016-08-11] MEDS: MULTIVITAMIN TAB PO SCH (08:06)
[2016-08-11] MEDS: ATORVASTATIN 40 MG TAB PO SCH (08:06)
[2016-08-11] MEDS: VITAMIN B COMPLEX TAB PO SCH (08:06)
[2016-08-11] MEDS: INSULIN ASPART 100 UNITS/ML 3 ML PEN SC SCH ×4 (08:16→21:05)
[2016-08-11] MEDS: SODIUM CHLORIDE 0.9% 1000ML 1,000 ML IV SCH ×2 (08:19→21:42)
[2016-08-11] MEDS ORDERED: CLOPIDOGREL BISULFATE 75 MG TAB PO SCH (09:00)
--- NOTE | 2016-08-11 09:54 | Progress Note ---
Internal Med Progress Note Date of Service: Aug 11, 2016. Provider Documentation: SUBJECTIVE: Patient is doing well and denies any complaints. No chest pain, sob, localized weakness, numbness/tingling, fever, chills, headaches. OBJECTIVE: Vital Signs-as noted below Exam: General-AAOX3, no distress Eyes-No icterus Neck-Supple, No JVD Lungs-AEBE, no wheezing Heart-S1, S2 normal, no murmurs Abdomen-Soft, non tender, non distended, BS present Extremities-No edema Neuro-Cranial nerves intact, Power 5/5 all extremities; Double simultaneous extinction on the left. Lab data as noted below. ASSESSMENT & PLAN: IMPRESSION AND PLAN: MILD RIGHT MCA STROKE: Patient came in with c/o left facial droop/drooling followed by some motor weakness in left upper extremity, unable to specify. Resolved on arrival to ED Only sign on neurological exam per neurology was : Double simultaneous extinction on left. Risk factors: TIA X 2 in past, HTN, DM, CAD -On ASA 81 mg daily, statin (Patient stopped taking his medications x 1 month as thought it was not necessary). -Work up- Carotid US/CTA Head/Neck - 95% Rt ICA, 55 % in Left ICA, Echocardiogram - Moderately dilated LV chamber size with normal wall thickness; Severely reduced LV systolic function with severe global hypokinesis, EF 28% by biplane method of discs; Grade I diastolic dysfunction; Moderate LA dilation; LDL- 101. -Vascular surgery consulted for critical stenosis -Appreciate neurology inputs PLAN: Pacemaker is compatible with MRI but cant do over weekend per policy. Discussed with neurology, will do repeat CT head in stead RIGHT ICA STENOSIS, SEVERE -Per CTA head/Neck- 95% on Right side,55% on left side -Vascular surgery consulted. As mild Right MCA infarct, should be okay to go ahead with surgery if surgeon feels its indicated. Per discussion with neurology ELEVATED TROPONIN: Likely secondary to CKD . No cardiac symptoms on this admission -Does have hx of CAD with stents in past with CHF systolic/Ischemic cardiomyopathy with EF 28% -Trop 0.294, 0.244, 0.201,0.133,0.130 (Trending down) ; EKG no acute changes -Continue with ASA, Statin. -Echo- Moderately dilated LV chamber size with normal wall thickness; Severely reduced LV systolic function with severe global hypokinesis, EF 28% by biplane method of discs; Grade I diastolic dysfunction; Moderate LA dilation -Appreciate cardiology inputs HX OF CAD S/P STENTS/SEVERE ISCHEMIC CARDIOMYOPATHY -EF 28% -On ASA, Atorvastatin. Not on lasix at home -Monitor CKD-III Baseline 1.5, near baseline -IV fluids as got CTA done yesterday. Creatinine is in fact better -Monitor DM-II -Hold PO meds, ISS -Restart home meds as was non compliant with medications ALIDA- Does not use CPAP/BIPAP GI PROPHYLAXIS -Protonix PO DVT PROPHYLAXIS Heparin SQ CODE STATUS Full code DISPOSITION -CT head ordered . Vascular surgery consult - awaiting Okay to discharge after above tests done Discussed with neurology Vital Signs: Date Time Temp Pulse Resp B/P Pulse Ox O2 Delivery O2 Flow Rate FiO2 08/11/16 07:41 36.6 63 16 134/71 98 Room Air 08/11/16 04:29 37.0 61 18 166/82 98 Room Air 08/11/16 04:00 Room Air 08/10/16 23:59 Room Air 08/10/16 23:46 36.7 74 18 147/82 95 Room Air 08/10/16 20:01 36.7 62 16 147/73 96 Room Air 08/10/16 20:00 Room Air 08/10/16 16:15 36.5 60 16 130/68 97 Room Air 08/10/16 16:05 Room Air 08/10/16 12:00 Room Air 08/10/16 11:51 36.9 60 18 117/67 95 Room Air Lab Results: Results Past 24 Hours Test 08/10/16 10:49 08/10/16 11:17 08/10/16 16:02 08/10/16 17:14 Range/Units Total Creatine Kinase 65 49 39-308 U/L Creatine Kinase MB 4.3 3.1 0.5-3.6 ng/ml Creatine Kinase MB Ratio 6.6 6.3 0-3.0 Troponin I 0.201 0.133 0-0.045 ng/ml Bedside Glucose 227 113 70-99 mg/dl Test 08/10/16 20:29 08/10/16 23:00 08/11/16 05:15 08/11/16 07:07 Range/Units Bedside Glucose 173 173 70-99 mg/dl Total Creatine Kinase 44 39-308 U/L Creatine Kinase MB 2.9 0.5-3.6 ng/ml Creatine Kinase MB Ratio 6.6 0-3.0 Troponin I 0.130 0-0.045 ng/ml White Blood Count 6.33 4.8-10.8 K/uL Red Blood Count 4.86 4.7-6.1 M/uL Hemoglobin 14.6 14.0-18.0 g/dL Hematocrit 42.1 42-52 % Mean Corpuscular Volume 86.6 80-100 fL Mean Corpuscular Hemoglobin 30.0 25-34 pg Mean Corpuscular Hemoglobin Concent 34.7 32-36 g/dl RDW Standard Deviation 41.9 36.4-46.3 fL RDW Coefficient of Variation 13.1 11.5-14.5 % Platelet Count 121 130-400 K/uL Mean Platelet Volume 10.0 7.4-10.4 fL Sodium Level 141 136-145 mmol/L Potassium Level 3.7 3.5-5.1 mmol/L Chloride Level 105 98-107 mmol/L Carbon Dioxide Level 26 21-32 mmol/L Anion Gap 10.0 3-11 mmol/L Blood Urea Nitrogen 31 7-18 mg/dl Creatinine 1.40 0.60-1.40 mg/dl Est Creatinine Clear Calc Drug Dose 43.5 ml/min Estimated GFR () 54.6 Estimated GFR (Non- 47.1 BUN/Creatinine Ratio 21.9 10-20 Random Glucose 171 70-99 mg/dl Calcium Level 8.2 8.5-10.1 mg/dl
[2016-08-11 11:05] VITALS: BP 161/81; PULSE 67; TEMP 36.6; O2SAT 97
--- NOTE | 2016-08-11 11:30 | PROGRESS NOTE ---
DATE: 08/11/2016 I am seeing Maicol in followup. CT angiography confirmed a critical stenosis of the right internal carotid with an 80% stenosis of the right external carotid, moderate atheromatous changes. There is 55% stenosis of the left internal carotid artery origin. This morning, I asked for followup CT, has not yet been read, but there is a wedge-shaped infarct in the posterior right parietal lobe without mass effect. It is relatively small but falls in the distribution of a branch of a large vessel. The patient has not had any new symptoms. No headaches. PHYSICAL EXAMINATION: GENERAL: He is awake and alert. There is no right/left confusion. No neglect or denial. VITAL SIGNS: 36.6, 63, 16, 134/71, 98%. NEUROLOGIC: There are normal visual araiza. No visual extinction and normal facial symmetry, normal speech and language. There is a very marginal left drift, but equal rapid alternating movement. Symmetric lower extremity strength continues to be double simultaneous stimulation extinction on the left. Cerebellar function is normal. IMPRESSION: Right parietal infarction, symptomatic high grade ABIMBOLA stenosis. The patient is marginally more symptomatic with minimal left drift. He has very little neurologic deficit. Agree with vascular surgery consultation. I defer to the judgment of the vascular surgeon, but this is a small infarct and the ABIMBOLA stenosis is symptomatic. I do not think we need to wait a protracted period of time before any operative intervention. He is on antiplatelet therapy with aspirin as it was revealed that he has not taken his medications including aspirin for over a month. He was encouraged to do so. I would recommend a CardioNet monitor upon discharge, given his low ejection fraction and cardiomyopathy, to rule out atrial fibrillation. However, this infarction presumably is not related to atrial fibrillation. We will follow with you. RENE
[2016-08-11] MEDS: HEPARIN SOD 5000 UNIT/0.5 ML CARP SQ SCH ×2 (14:18→21:06)
[2016-08-11 16:07] VITALS: BP 135/66; PULSE 59; TEMP 36.8; O2SAT 97
[2016-08-11 19:54] VITALS: BP 143/73; PULSE 60; TEMP 36.9; O2SAT 96
--- NOTE | 2016-08-11 21:13 | DIAGNOSTIC IMAGING REPORT ---
CT SCAN OF THE BRAIN WITHOUT IV CONTRAST CLINICAL HISTORY: Follow-up stroke. COMPARISON STUDY: CT of the brain dated 08/09/2016. TECHNIQUE: Unenhanced axial CT scan of the brain is performed from the vertex to the skull base. CT DOSE: 537.48 mGy.cm FINDINGS: Brain parenchyma: There is loss of pride-white matter differentiation in the right parietal lobe consistent with a small evolving infarct . No additional foci of acute ischemia are suspected. There are age-related involutional changes noting mild subcortical and periventricular microangiopathic change. There is no hemorrhage or mass effect. A small chronic lacunar infarct is identified in the right caudate head. No extra-axial fluid collection is seen. Ventricles, sulci, cisterns: Prominent secondary to involutional change. Intracranial vasculature: There is atherosclerotic calcification of the cavernous carotid intervertebral arteries. Calvarium: Unremarkable. Sinuses and mastoids: The visualized paranasal sinuses are clear. There is a right mastoid effusion. The left mastoid air cells are well pneumatized. Orbits: The bony orbits are grossly intact. IMPRESSION: 1. There is a small evolving cortical infarct in the right parietal lobe. 2. No hemorrhage is seen. 3. No additional foci of ischemia are suspected. Electronically signed by: Den Chu M.D. 08/11/2016 10:12 AM Dictated Date/Time: 08/11/2016 10:09 AM
[2016-08-11 23:51] VITALS: BP 157/77; PULSE 60; TEMP 37; O2SAT 97
[2016-08-12 03:16] VITALS: BP 133/67; PULSE 53; TEMP 37; O2SAT 97
[2016-08-12] MEDS: SODIUM CHLORIDE 0.9% 1000ML 1,000 ML IV SCH (05:29)
[2016-08-12] MEDS: HEPARIN SOD 5000 UNIT/0.5 ML CARP SQ SCH ×2 (05:58→14:00)
--- NOTE | 2016-08-12 06:40 | Clinical Documentation Query ---
FRAN [place] : CLINICAL DOCUMENTATION QUERY Patient is an 81 year old male admitted for evaluation and treatment of stroke symptoms, subsequently found to have a right parietal infarction in the setting of critical right ICA stenosis and medication non-compliance. He has resumed aspirin therapy and vascular surgical consultation is pending to consider operative repair. As appropriate, consider documentation as suggested below to etiologically link the pathphysiological process to the observed sequelae. This relationship cannot be assumed by the professional retention specialist. Thank you. In your clinical opinion is this patient being managed for: ( + ) Right parietal cerebral infarction due to thrombosis of right internal carotid artery ( ) Other explanation of clinical findings (Please Explain) ( ) Unable to determine (Please Define) ( ) Need to Discuss ( ) Not Agree The medical record reflects the following clinical findings, treatment, and risk factors. Clinical Indicators: As above Treatment: Telemetry, neurologic and vascular surgical consultations, ASA, echo, carotid ultrasound, CT, MRI. Risk Factors: Age, history of TIA, DM, hyperlipidemia Please clarify and document your clinical opinion in the progress notes and discharge summary. Terms such as "probable", "suspected", "likely", "questionable", "possible", or "still to be ruled out" are acceptable. IF IN AGREEMENT, YOU MUST DOCUMENT ABOVE DIAGNOSTIC STATEMENT IN DAILY PROGRESS NOTES AND DISCHARGE SUMMARY. This document is not part of the patient's record. Thank You, Anuj Jamil RN [phone]
--- NOTE | 2016-08-12 06:42 | Clinical Documentation Query ---
AP BellHLEEN : CLINICAL DOCUMENTATION QUERY Patient is an 81 year old male admitted for evaluation and treatment of stroke symptoms, subsequently found to have a right parietal infarction in the setting of critical right ICA stenosis and medication non-compliance. He has resumed aspirin therapy and vascular surgical consultation is pending to consider operative repair. As appropriate, consider documentation as suggested below to etiologically link the pathphysiological process to the observed sequelae. This relationship cannot be assumed by the professional drying machine back tender. Thank you. In your clinical opinion is this patient being managed for: ( x) Right parietal cerebral infarction due to thrombosis (and/or embolism) of right internal carotid artery ( ) Other explanation of clinical findings (Please Explain) ( ) Unable to determine (Please Define) ( ) Need to Discuss ( ) Not Agree The medical record reflects the following clinical findings, treatment, and risk factors. Clinical Indicators: As above Treatment: Telemetry, neurologic and vascular surgical consultations, ASA, echo, carotid ultrasound, CT, MRI. Risk Factors: Age, history of TIA, DM, hyperlipidemia Please clarify and document your clinical opinion in the progress notes and discharge summary. Terms such as "probable", "suspected", "likely", "questionable", "possible", or "still to be ruled out" are acceptable. IF IN AGREEMENT, YOU MUST DOCUMENT ABOVE DIAGNOSTIC STATEMENT IN DAILY PROGRESS NOTES AND DISCHARGE SUMMARY. This document is not part of the patient's record. Thank You, Anuj Jamil, BHUPINDER [phone]
[2016-08-12 07:43] VITALS: BP 142/74; PULSE 60; TEMP 36.8; O2SAT 94
[2016-08-12] MEDS: VITAMIN B COMPLEX TAB PO SCH (07:56)
[2016-08-12] MEDS: CHOLECALCIFEROL 1000 INTER.UNIT TAB PO SCH (07:56)
[2016-08-12] MEDS: MULTIVITAMIN TAB PO SCH (07:56)
[2016-08-12] MEDS: ASPIRIN 81 MG ECTAB PO SCH (07:57)
[2016-08-12] MEDS: ATORVASTATIN 40 MG TAB PO SCH (07:57)
[2016-08-12] MEDS: AMLODIPINE BESYLATE 5 MG TAB PO SCH (07:57)
[2016-08-12] MEDS: INSULIN ASPART 100 UNITS/ML 3 ML PEN SC SCH ×3 (08:02→17:13)
--- NOTE | 2016-08-12 09:29 | Surgery Consultation ---
Consultation Date of Service Aug 12, 2016. Chief Complaint RICAS, TIA History of Present Illness The patient is a 81 year old male with hx of CAD s/p coronary stenting, MS, HTN , ischemic cardiomyopathy, DMII, CKD, TIA, seen in consultation today for critical RICAS of 95% by CTA associated with TIA. Pt states he was at home in usual state of health eating dinner with his , when she noted L facial droop and fumbling with L hand. Pt states he was just having difficulty getting the noodles in his mouth and denies weakness of his L hand. States he did have at least 2 prior episodes of TIA in past, first one was 6 yr ago and consisted of possibly general weakness. 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 Both resolved within 1-2 hr. Denies CISNEROS, fever,chills, chest pain, sob, abd pain, N/V, rest pain, claudication , other complaints. Vitals Vital Signs Past 12 Hours Date Time Temp Pulse Resp B/P Pulse Ox O2 Delivery O2 Flow Rate FiO2 08/12/16 08:00 Room Air 08/12/16 07:43 36.8 60 16 142/74 94 Room Air 08/12/16 04:00 Room Air 08/12/16 03:16 37.0 53 18 133/67 97 Room Air 08/11/16 23:59 Room Air 08/11/16 23:51 37.0 60 18 157/77 97 Room Air Allergies Coded Allergies: Clonidine (Verified Adverse Reaction, Severe, SEVERE BRADYCARDIA, 08/09/16) Home Medications Scheduled Ascorbic Acid (Ascorbic Acid), 500 MG PO DAILY Aspirin (Aspirin Chewable), 81 MG PO DAILY B-Complex Vitamins (Vitamin B Complex), 1 TAB PO DAILY Coenzyme Q10 (Ubidecarenone) (Co Q-10), 1 CAP PO DAILY Lisinopril (Zestril), PO DAILY Metformin Hcl (Glucophage), PO BID Multivitamin (Multivitamin), 1 TAB PO DAILY Scheduled PRN Nitroglycerin (Nitrostat), 0.4 MG UT UD PRN for Chest Pain Problem List Medical Problems: (1) ACS (acute coronary syndrome) (2) basal cell carcinoma back (3) Basal cell carcinoma of ear (4) Basal cell carcinoma of lower extremity (5) Benign hypertension (6) CAD (coronary artery disease) (7) Cerebrovascular disease (8) Chest pain (9) CKD (chronic kidney disease), stage III (10) Coronary artery disease (11) Diabetes mellitus type 2 (12) Dyslipidemia (13) Elevated Topronin (14) Elevated troponin (15) History of left bundle branch block (LBBB) (16) HTN (hypertension) (17) Hypertensive Urgency (18) Ischemic cardiomyopathy (19) Myocardial infarct (20) ALIDA on CPAP (21) Symptomatic sinus bradycardia (22) TIA (transient ischemic attack) Surgical Problems: (1) Cardiac pacemaker in situ (2) Percutaneous transluminal coronary angioplasty status Surgical / Medical History Hx Cardiac Surgery: Yes (pacemaker, stents) Hx Abdominal Surgery: No Hx Cancer Surgery: Yes (skin) Hx Thoracic Surgery: No Hx Orthopedic: No Hx Urinary Tract Surgery: No HX Other Surgery: Yes (nasal surgery) Past Medical/Surgical History: Angioplasty/Stent, CVA/TIA, Diabetes, Heart Disease, High Cholesterol, Hypertension, Kidney Disease, MS, Sleep Apnea Family History No pertinent family history Social History Smoking Status: Former Smoker Hx Tobacco Use In Past Year?: No Hx Alcohol Use - Type & Amnt: No Hx Substance Use -Type & Amnt: No Review of Systems Constitutional: No chills, No fever, No malaise Skin: No change in color Eyes: No visual changes ENMT: No sore throat Respiratory: No DAMON, No cough, No hemoptysis, No short of breath Cardiovascular: No chest pain, No edema, No intermittent claudication, No palpitations, No syncope Gastrointestinal: No abdominal pain, No nausea, No vomiting Neurologic: No dizziness, No headache, No lethargy, No numbness, No tingling Physical Exam Constitutional: General Apperance: heathly-appearing (for age), well-nourished, well- developed Level of Distress: NAD Ambulation: ambulating normally Psychiatric: Mental Status: active & alert, normal mood, normal affect Orientation: oriented except where noted, to time, to place, to person Memory: recent memory normal, remote memory normal Head: normocephalic, atraumatic Eyes: EOM: EOMI ENMT: normal ENT inspection, hearing grossly normal Neck: supple, trachea midline Lungs: Respiratory effort: no dyspnea Auscultation: no wheezing, no rales/crackles, no rhonchi, decreased breath sounds Cardiovascular: Apical Impulse: not displaced Heart Auscultation: RRR, no rubs, no gallops Peripheral Pulses: Pulses: full and equal, in all extremities except if noted Bruits: none appreciated Carotid Pulse: normal on the left, normal on the right Brachial Pulses: normal on the left, normal on the right Radial Pulse: normal on the left, normal on the right Femoral Pulse: normal on the left, normal on the right Posterior Tibialis Pulse: decreased on the left, decreased on the right Dorsalis Pedis Pulse: decreased on the left, decreased on the right Abdomen: Bowel Sounds: normal Inspection & Palpation: soft, non-distended, no tenderness, guarding & rebound Musculoskeletal: normal strength (5/5 throughout), normal tone Extremities: Upper Right: no cyanosis, no edema, no varicosities Upper Left: no cyanosis, no edema, no varicosities Lower Right: no cyanosis, no edema, no varicosities Lower Left: no cyanosis, no edema, no varicosities Neurologic: Cranial Nerves: grossly intact Sensation: grossly intact Assessment and Plan ASSESSMENT and PLAN: RICAS 95% TIA Pt's imaging reviewed by Dr Shaikh, recommends R CEA to be done in next 1- 2 weeks. This was discussed with pt, he expresses understanding and would like to have procedure done. Can be done as outpt if pt stable for d/c. Also discussed with Dr Lara, cardiology, to request cardiac clearance.
--- NOTE | 2016-08-12 11:07 | Progress Note ---
Internal Med Progress Note Date of Service: Aug 12, 2016. Provider Documentation: SUBJECTIVE: Patient is doing well and denies any complaints. No chest pain, sob, localized weakness, numbness/tingling, fever, chills, headaches. OBJECTIVE: Vital Signs-as noted below Exam: General-AAOX3, no distress Eyes-No icterus Neck-Supple, No JVD Lungs-AEBE, no wheezing Heart-S1, S2 normal, no murmurs Abdomen-Soft, non tender, non distended, BS present Extremities-No edema Neuro-Cranial nerves intact, Power 5/5 all extremities; Double simultaneous extinction on the left. Lab data as noted below. ASSESSMENT & PLAN: IMPRESSION AND PLAN: MILD RIGHT MCA STROKE (RIGHT PARIETAL LOBE): Patient came in with c/o left facial droop/drooling followed by some motor weakness in left upper extremity, unable to specify. Resolved on arrival to ED Only sign on neurological exam per neurology was : Double simultaneous extinction on left. Risk factors: TIA X 2 in past, HTN, DM, CAD -On ASA 81 mg daily, statin (Patient stopped taking his medications x 1 month as thought it was not necessary). Emphasized importance of doing so -Work up-Initial CT head- no acute findings, repeat CT head on 08/11/16 (unable to MRI on weekend due pacemaker policies, though device is compatible with MRIS ) - Rt parietal lobe infarction -small evolving cortical infarct, Carotid US/ CTA Head/Neck - 95% Rt ICA, 55 % in Left ICA, Echocardiogram - Moderately dilated LV chamber size with normal wall thickness; Severely reduced LV systolic function with severe global hypokinesis, EF 28% by biplane method of discs; Grade I diastolic dysfunction; Moderate LA dilation; LDL- 101. -Vascular surgery consulted for critical stenosis - Plan is for Rt CEA in 1-2 weeks outpatient after cardiology clearance. -Appreciate neurology inputs RIGHT ICA STENOSIS, SEVERE -Per CTA head/Neck- 95% on Right side,55% on left side -Vascular surgery consulted. As mild Right MCA infarct, should be okay to go ahead with surgery in 1-2 weeks. Plan is for Rt CEA in 1-2 weeks outpatient. Vascular surgery requested cardiology clearance today ELEVATED TROPONIN: Likely secondary to CKD . No cardiac symptoms on this admission -Does have hx of CAD with stents in past with CHF systolic/Ischemic cardiomyopathy with EF 28% -Trop 0.294, 0.244, 0.201,0.133,0.130 (Trending down) ; EKG no acute changes -Continue with ASA, Statin. -Echo- Moderately dilated LV chamber size with normal wall thickness; Severely reduced LV systolic function with severe global hypokinesis, EF 28% by biplane method of discs; Grade I diastolic dysfunction; Moderate LA dilation -Appreciate cardiology inputs HX OF CAD S/P STENTS/SEVERE ISCHEMIC CARDIOMYOPATHY -EF 28% -On ASA, Atorvastatin. Not on lasix at home -Monitor CKD-III Baseline 1.5, near baseline -IV fluids as got CTA done on 08/10/16, but creatinine in fact better post CTA -Monitor outpatient DM-II -Hold PO meds, ISS -Restarted home meds as was non compliant with medications ALIDA- Does not use CPAP/BIPAP GI PROPHYLAXIS -Protonix PO DVT PROPHYLAXIS Heparin SQ CODE STATUS Full code DISPOSITION Eager to be discharged Okay to discharge home today Updated over phone about discharge plans Vital Signs: Date Time Temp Pulse Resp B/P Pulse Ox O2 Delivery O2 Flow Rate FiO2 08/12/16 08:00 Room Air 08/12/16 07:43 36.8 60 16 142/74 94 Room Air 08/12/16 04:00 Room Air 08/12/16 03:16 37.0 53 18 133/67 97 Room Air 08/11/16 23:59 Room Air 08/11/16 23:51 37.0 60 18 157/77 97 Room Air 08/11/16 20:00 Room Air 08/11/16 19:54 36.9 60 20 143/73 96 Room Air 08/11/16 16:07 36.8 59 18 135/66 97 Room Air 08/11/16 16:05 Room Air 08/11/16 12:00 Room Air 08/11/16 11:05 36.6 67 18 161/81 97 Room Air Lab Results: Results Past 24 Hours Test 08/11/16 11:07 08/11/16 15:43 08/11/16 20:20 08/12/16 07:01 Range/Units Bedside Glucose 202 134 222 155 70-99 mg/dl
[2016-08-12] MEDS ORDERED: NRV5 PO (11:09)
[2016-08-12] MEDS ORDERED: APR25 PO (11:09)
[2016-08-12] MEDS ORDERED: LPT40 PO (11:09)
[2016-08-12] MEDS ORDERED: INSDGIPEN SC (11:17)
--- NOTE | 2016-08-12 11:19 | Discharge Instructions ---
Discharge Instructions Date of Service Aug 12, 2016. Admission Reason for Admission: Cad, Elevated Troponin, Htn, Tia Discharge Discharge Diagnosis / Problem: 1. Right parietal lobe stroke 2. Severe Right carotid ar stenosis Discharge Goals Goal(s): Improve function, Increase independence, Improve disease control, Diagnostic testing, Therapeutic intervention, Prevent Disease Progression Activity Recommendations Activity Limitations: resume your previous activity (as tolerated prior to admission) . Instructions / Follow-Up Instructions / Follow-Up MEDICATION CHANGES: 1. New medication; Lantus insulin 10 units at bedtime. MONITOR Blood glucose monitoring as instructed with new medication Insulin Lantus and uncontrolled DM with HBA1C 12.6 FOLLOW UP 1. Follow up with Dr Wilde 08/19/16 at 9:30 AM 2. Follow up with vascular surgery, Dr Shaikh for surgery Rt Carotid endarterectomy in 1-2 weeks Risk Factors for Stroke: You can reduce your chances of stroke by working with your medical provider to adopt a healthy lifestyle. Some specific ways to lower your chance of stroke are: * If you are a smoker, now is the time to stop smoking cigarettes * If you are diabetic, improve the control of your blood sugars * Avoid excessive amounts of alcohol * Control high blood pressure * Lose weight if you are overweight * Be sure to lead an active lifestyle * Eat a healthy diet low in salt, cholesterol and fat You should know about other risk factors for stroke that you are unable to control. These include: * Age 55 years or older * Male gender * Certain racial groups: , or / * Family History of Stroke, Mini stroke or Heart Attack * Sickle Cell Disease Follow Up: It is important for you to keep your follow up appointments with your medical provider. Current Hospital Diet Patient's current hospital diet: Diabetes Type 2 Diet, AHA Diet (Heart Healthy) Discharge Diet Recommended Diet: AHA Diet (Heart Healthy), Low Sodium Diet (2gm Na), Diabetes Type 2 Diet Pending Studies Studies pending at discharge: no Laboratory Results Hemoglobin A1c Test 08/10/16 04:45 Range/Units Estimated Average Glucose 315 mg/dl Hemoglobin A1c 12.6 H 4.5-5.6 % Lipid Panel Test 08/10/16 04:45 Range/Units Triglycerides Level 78 0-150 mg/dl Cholesterol Level 172 0-200 mg/dl HDL Cholesterol 55 mg/dl Cholesterol/HDL Ratio 3.1 LDL Cholesterol, Calculated 101 mg/dl Medical Emergencies . Who to Call and When: Medical Emergencies: Call 911 immediately if you experience any of the following warning signs and symptoms of Stroke: * Sudden numbness or weakness of the face, arm or leg, especially on one side of the body * Sudden confusion, trouble speaking or understanding * Sudden trouble seeing in one or both eyes * Sudden trouble walking, dizziness, loss of balance or coordination * Sudden severe headache with no cause Do not delay calling 911 if you experience any warning signs or symptoms of a stroke. Delay in seeking medical attention may affect what treatments can be given to you. . Non-Emergent Contact Non-Emergency issues call your: Primary Care Provider . . "Provider Documentation" section prepared by Edyta Gaffney. Stroke Core Measures Reason no t-PA for Stroke: Treatment not indicated Reason no antithrom by day 2: Treatment provided - N/A Reason no antithrom at D/C: Treatment provided - N/A Reason no statin at D/C: Treatment provided - N/A Reason no anticoag w/a fib: Treatment not indicated VTE Core Measure Inpt VTE Proph given/why not?: Unfractionated heparin SQ
[2016-08-12 11:22] VITALS: BP 151/82; PULSE 61; TEMP 36.6; O2SAT 96
--- NOTE | 2016-08-12 11:30 | Discharge Summary ---
Discharge Summary Date of Service Aug 12, 2016. Discharge Summary Admission Date: Aug 09, 2016 at 22:58 Discharge Date: Aug 12, 2016 Discharge Disposition: Home Principal Diagnosis: 1. 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 Right ICA stenosis, severe 3. DM-2, Uncontrolled Secondary Diagnoses/Problems: 1. CHF, Systolic /Severe CMP with EF 28% 2. CKD-III 3. Hypertension 4. Hx of CAD S/P Stents 5. ALIDA Procedures: Tele monitoring CT head x 2 CTA head/Neck Echocardiogram CXR Carotid US PT/OT Consultations: Neurology Cardiology Pending Studies/Follow-Up: Instructions / Follow-Up MEDICATION CHANGES: 1. New medication; Lantus insulin 10 units at bedtime. MONITOR Blood glucose monitoring as instructed with new medication Insulin Lantus and uncontrolled DM with HBA1C 12.6 FOLLOW UP 1. Follow up with Dr Wilde 08/19/16 at 9:30 AM 2. Follow up with vascular surgery, Dr Shaikh for surgery Rt Carotid endarterectomy in 1-2 weeks Medication Reconciliation New Medications: Insulin Glargine (Lantus Solostar) 100 Unit/Ml Inj 10 UNITS SC PM for 30 Days, #30 PEN Amlodipine Besylate (Amlodipine Besylate) 5 Mg Tab 10 MG PO QAM for 30 Days, #60 TAB Atorvastatin (Atorvastatin Calcium) 40 Mg Tab 40 MG PO QAM for 30 Days, #30 TAB 2 Refills Hydralazine Hcl (Apresoline) 25 Mg Tab 50 MG PO TID for 30 Days, #180 TAB 2 Refills Continued Medications: Ascorbic Acid (Ascorbic Acid) 500 Mg Tab 500 MG PO DAILY, TAB Aspirin (Aspirin Chewable) 81 Mg Chew 81 MG PO DAILY, TAB PRN B-Complex Vitamins (Vitamin B Complex) 1 Tab Tab 1 TAB PO DAILY Coenzyme Q10 (Ubidecarenone) (Co Q-10) 75 Mg Cap 1 CAP PO DAILY, CAP Lisinopril (Zestril) Unknown Strength Tab PO DAILY Metformin Hcl (Glucophage) Unknown Strength Tab PO BID Multivitamin (Multivitamin) Tab 1 TAB PO DAILY, TAB Nitroglycerin (Nitrostat) 0.4 Mg Sub 0.4 MG UT UD PRN for Chest Pain, SUB PLACE ONE TABLET UNDER THE TONGUE EVERY 5 MINUTES NEEDED FOR CHEST PAIN. MAXIMUM 3 DOSES IN 15 MINUTES. Admission Information HPI (per Admitting provider): HISTORY OF PRESENT COMPLAINT: He is an 81-year-old male with significant past medical history including chronic kidney disease, CAD status post old [place] and status post cardiac stent x2, ischemic cardiomyopathy, diabetes type 2, sinus node dysfunction status post pacemaker, hypertension, hyperlipidemia and also a history of obstructive sleep apnea. Apparently has been complaining of drooping and drooling from the left side of the face at dinner tonight. It was noticed by the that the food has been falling from the left side of the face and also some drooping on the same side. Later on, he has had some issues with coordination, especially involving the left upper extremity but did not have any other symptoms. With the history of TIA, they decided to come to the Emergency Room. He denies to have any headache, any blurred vision, any numbness, tingling or heaviness involving the face or any side of the body, any weakness involving any side of the body as well and all of the symptoms resolved in the Emergency Room. When asking questions, he mentioned that he has had an episode of difficulty in speech yesterday when he was driving back from [place] and on the way he has had this speech problem that lasted for a few minutes, but he did not tell it to anybody. He denies to have any chest pain, any shortness of breath, any palpitations. He does not have any fever, chills or rigors and denies to have any problem with urine and/or bowel habit. In the ER, he was hemodynamically stable without any neuro deficit and apparent blood test came back negative except troponin was noted to be 0.2. From that point, he was advised for admission to the telemetry unit. Hospital Course IMPRESSION AND PLAN: MILD RIGHT MCA STROKE (RIGHT PARIETAL LOBE): Patient came in with c/o left facial droop/drooling followed by some motor weakness in left upper extremity, unable to specify. Resolved on arrival to ED Only sign on neurological exam per neurology was : Double simultaneous extinction on left. Risk factors: TIA X 2 in past, HTN, DM,uncontrolled, CAD -On ASA 81 mg daily, statin (Patient stopped taking his medications x 1 month as thought it was not necessary). Emphasized importance of doing so -Work up-Initial CT head- no acute findings, repeat CT head on 08/11/16 (unable to MRI on weekend due pacemaker policies, though device is compatible with MRIS ) - Rt parietal lobe infarction -small evolving cortical infarct, Carotid US/ CTA Head/Neck - 95% Rt ICA, 55 % in Left ICA, Echocardiogram - Moderately dilated LV chamber size with normal wall thickness; Severely reduced LV systolic function with severe global hypokinesis, EF 28% by biplane method of discs; Grade I diastolic dysfunction; Moderate LA dilation; LDL- 101. HBA1C 12.6 -Vascular surgery consulted for critical stenosis - Plan is for Rt CEA in 1-2 weeks outpatient after cardiology clearance. -Appreciate neurology inputs RIGHT ICA STENOSIS, SEVERE -Per CTA head/Neck- 95% on Right side,55% on left side -Vascular surgery consulted. As mild Right MCA infarct, should be okay to go ahead with surgery in 1-2 weeks. Plan is for Rt CEA in 1-2 weeks outpatient. Vascular surgery requested cardiology clearance today ELEVATED TROPONIN: Likely secondary to CKD . No cardiac symptoms on this admission -Does have hx of CAD with stents in past with CHF systolic/Ischemic cardiomyopathy with EF 28% -Trop 0.294, 0.244, 0.201,0.133,0.130 (Trending down) ; EKG no acute changes -Continue with ASA, Statin. -Echo- Moderately dilated LV chamber size with normal wall thickness; Severely reduced LV systolic function with severe global hypokinesis, EF 28% by biplane method of discs; Grade I diastolic dysfunction; Moderate LA dilation -Appreciate cardiology inputs DM-II, Uncontrolled -Hold PO meds, ISS. Was not taking metformin x 1 month -HBA1C- 12.6. With uncontrolled DM, Stroke this admission and planned surgery in 1-2 weeks, for now will start him on lantus 10 units q HS. DM education consult placed. -Discussed with about enforcing compliance with medications, insulin. Hesitant about starting on it, but for now it will be in his best interest. HX OF CAD S/P STENTS/SEVERE ISCHEMIC CARDIOMYOPATHY -EF 28% -On ASA, Atorvastatin. Not on lasix at home -Monitor CKD-III Baseline 1.5, near baseline -IV fluids as got CTA done on 08/10/16, but creatinine in fact better post CTA -Monitor outpatient ALIDA- Does not use CPAP/BIPAP GI PROPHYLAXIS -Protonix PO DVT PROPHYLAXIS Heparin SQ CODE STATUS Full code DISPOSITION Eager to be discharged Okay to discharge home today Updated over phone about discharge plans Total time spent on discharge = 40 minutes This includes examination of the patient, discharge planning, medication reconciliation, and communication with other providers. Discharge Instructions Discharge Goals Goal(s): Improve function, Increase independence, Improve disease control, Diagnostic testing, Therapeutic intervention, Prevent Disease Progression Activity Recommendations Activity Limitations: resume your previous activity (as tolerated prior to admission) . Instructions / Follow-Up Instructions / Follow-Up MEDICATION CHANGES: 1. New medication; Lantus insulin 10 units at bedtime. MONITOR Blood glucose monitoring as instructed with new medication Insulin Lantus and uncontrolled DM with HBA1C 12.6 FOLLOW UP 1. Follow up with Dr Wilde 08/19/16 at 9:30 AM 2. Follow up with vascular surgery, Dr Shaikh for surgery Rt Carotid endarterectomy in 1-2 weeks Risk Factors for Stroke: You can reduce your chances of stroke by working with your medical provider to adopt a healthy lifestyle. Some specific ways to lower your chance of stroke are: * If you are a smoker, now is the time to stop smoking cigarettes * If you are diabetic, improve the control of your blood sugars * Avoid excessive amounts of alcohol * Control high blood pressure * Lose weight if you are overweight * Be sure to lead an active lifestyle * Eat a healthy diet low in salt, cholesterol and fat You should know about other risk factors for stroke that you are unable to control. These include: * Age 55 years or older * Male gender * Certain racial groups: , or / * Family History of Stroke, Mini stroke or Heart Attack * Sickle Cell Disease Follow Up: It is important for you to keep your follow up appointments with your medical provider. Current Hospital Diet Patient's current hospital diet: Diabetes Type 2 Diet, AHA Diet (Heart Healthy) Discharge Diet Recommended Diet: AHA Diet (Heart Healthy), Low Sodium Diet (2gm Na), Diabetes Type 2 Diet Pending Studies Studies pending at discharge: no Laboratory Results Hemoglobin A1c Test 08/10/16 04:45 Range/Units Estimated Average Glucose 315 mg/dl Hemoglobin A1c 12.6 H 4.5-5.6 % Lipid Panel Test 08/10/16 04:45 Range/Units Triglycerides Level 78 0-150 mg/dl Cholesterol Level 172 0-200 mg/dl HDL Cholesterol 55 mg/dl Cholesterol/HDL Ratio 3.1 LDL Cholesterol, Calculated 101 mg/dl Medical Emergencies . Who to Call and When: Medical Emergencies: Call 911 immediately if you experience any of the following warning signs and symptoms of Stroke: * Sudden numbness or weakness of the face, arm or leg, especially on one side of the body * Sudden confusion, trouble speaking or understanding * Sudden trouble seeing in one or both eyes * Sudden trouble walking, dizziness, loss of balance or coordination * Sudden severe headache with no cause Do not delay calling 911 if you experience any warning signs or symptoms of a stroke. Delay in seeking medical attention may affect what treatments can be given to you. . Non-Emergent Contact Non-Emergency issues call your: Primary Care Provider . . "Provider Documentation" section prepared by Edyta Gaffney. Stroke Core Measures Reason no t-PA for Stroke: Treatment not indicated Reason no antithrom by day 2: Treatment provided - N/A Reason no antithrom at D/C: Treatment provided - N/A Reason no statin at D/C: Treatment provided - N/A Reason no anticoag w/a fib: Treatment not indicated VTE Core Measure Inpt VTE Proph given/why not?: Unfractionated heparin SQ
--- NOTE | 2016-08-12 12:58 | Cardiology Follow-Up ---
Subjective General Date of Service: Aug 12, 2016. Chief Complaint: CVA Pt evaluation today including: conversation w/ patient, physical exam, chart review, lab review, review of studies, review of inpatient medication list History of Present Illness Patient feeling well this AM. Offers no acute complaints. Denies chest pain or SOB. No slurred speech or weakness noted. He exercises regularly and denies exertional chest pain or unusual SOB over the last 6 months. 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 Allergies Coded Allergies: Clonidine (Verified Adverse Reaction, Severe, SEVERE BRADYCARDIA, 08/09/16) Social History Smoking Status: Former Smoker Hx Tobacco Use In Past Year?: No Hx Alcohol Use - Type And Amou: No Hx Substance Use - Type And Am: No Problem List Medical Problems: (1) Benign hypertension Status: Chronic (2) Cerebrovascular disease Status: Chronic (3) CKD (chronic kidney disease), stage III Status: Chronic (4) Coronary artery disease Status: Chronic (5) Diabetes mellitus type 2 Status: Chronic (6) Dyslipidemia Status: Chronic (7) History of left bundle branch block (LBBB) Status: Chronic (8) Ischemic cardiomyopathy Status: Chronic (9) ALIDA on CPAP Status: Chronic (10) Right rotator cuff tendinitis Status: Acute (11) Symptomatic sinus bradycardia Status: Chronic Surgical Problems: (1) Cardiac pacemaker in situ Status: Chronic Review of Systems Respiratory: No cough, No dyspnea at rest, No hemoptysis, No shortness of breath, No sputum, No wheezing Cardiac: No PND, No chest pain, No edema, No orthopnea, No palpitations Physical Exam Vital Signs Last Vital Signs Documentation Date Time Temp Pulse Resp B/P Pulse Ox O2 Delivery O2 Flow Rate FiO2 08/12/16 12:00 Room Air 08/12/16 11:22 36.6 61 16 151/82 96 Physical Exam Constitutional: General Apperance: heathly-appearing (for age), well-nourished, well- developed Level of Distress: NAD Ambulation: ambulating normally Psychiatric: Mental Status: active & alert, normal mood, normal affect Orientation: oriented except where noted, to time, to place, to person Memory: recent memory normal, remote memory normal Head: normocephalic, atraumatic Eyes: EOM: EOMI Neck: supple, trachea midline Lungs: Respiratory effort: no dyspnea Auscultation: no wheezing, no rales/crackles, no rhonchi, decreased breath sounds Cardiovascular: Heart Auscultation: RRR, normal S1, normal S2, no murmurs Peripheral Pulses: Bruits: none appreciated Carotid Pulse: normal on the left, normal on the right Radial Pulse: normal on the left, normal on the right Femoral Pulse: normal on the left, normal on the right Dorsalis Pedis Pulse: decreased on the left, decreased on the right Abdomen: Bowel Sounds: normal Inspection & Palpation: soft, non-distended, no tenderness, guarding & rebound Neurologic: Cranial Nerves: grossly intact Sensation: grossly intact Assessment and Plan Assessment and Plan IMPRESSION: 1. Minimal troponin elevation in the setting of acute on chronic kidney disease. 2. History of ischemic cardiomyopathy, currently 28% 3. Medical noncompliance. 4. Transient ischemic attack. 5. Sinus node dysfunction status post permanent pacemaker placement. 6. Carotid stenosis, plans for future CEA RECOMMENDATIONS: Patient denies acute cardiac complaints of CP or SOB. No CHF symptoms. He is considered moderate to high risk for CEA, however the benefit of surgical revascularization to aid in the prevention of recurrent CVA outweighs his cardiovascular risk. Risks were discussed with patient and he is wishing to proceed as planned in the near future. In the interim, he was restarted on correct cardiac medications including - ASA , statin, amlodipine, lisinopril. Will also add low dose Toprol given mild decline in EF. Previously not on beta rachelle due to SSS. Now has pacemaker. No further cardiac testing is indicated at this time and would not alter his surgical risk. Case discussed with Dr. Lara. Laboratory Results Last 24 Hours Test 08/11/16 15:43 08/11/16 20:20 08/12/16 07:01 08/12/16 11:04 Bedside Glucose 134 mg/dl 222 mg/dl 155 mg/dl 245 mg/dl
[2016-08-12 13:16] VITALS: BMI 25.8
[2016-08-12 15:05] VITALS: BP 151/82; PULSE 61; TEMP 36.6; O2SAT 96
[2016-08-12 18:00] VITALS: Ht 177.8 cm; Wt 81.6 kg
[2016-08-13] MEDS ORDERED: APR25 PO (15:03)
[2016-08-13] MEDS ORDERED: NRV5 PO (15:03)
[2016-08-13] MEDS ORDERED: LPT40 PO (15:03)
[2016-08-13] MEDS ORDERED: INSDGIPEN SC (15:03)
[2016-08-16] MEDS ORDERED: HYDR-4717 PO (10:40)
[2016-08-16] MEDS ORDERED: INSDGIPEN SC (10:40)
[2016-08-16] MEDS ORDERED: ATOR-24 PO (10:40)
[2016-08-16] MEDS ORDERED: AMLO-114 PO (10:40)
[2016-08-16] MEDS ORDERED: LISIPOW PO (10:40)
[2016-08-16] MEDS ORDERED: LISI40TA PO (10:57)
== END 2016-08-12 18:00 | disposition home or self-care (01) | DRG 65 ==
LOC: ENRESERVDT → ENRESERVTM → EDBD 20:18 → C.EDC 20:20 → C.2T 22:58
PROVIDERS: ADMIT Internal Medicine; ATTEND Internal Medicine
DX: I63.031 Cerebral infarction due to thrombosis of right carotid artery (principal); I13.0 Hypertensive heart and chronic kidney disease with heart failure and stage 1 through stage 4 chronic kidney disease, or unspecified chronic kidney disease; I50.42 Chronic combined systolic (congestive) and diastolic (congestive) heart failure; I25.2 Old myocardial infarction; E11.22 Type 2 diabetes mellitus with diabetic chronic kidney disease; I25.10 Atherosclerotic heart disease of native coronary artery without angina pectoris; Z95.5 Presence of coronary angioplasty implant and graft; G47.33 Obstructive sleep apnea (adult) (pediatric); E78.5 Hyperlipidemia, unspecified; Z95.0 Presence of cardiac pacemaker; I25.5 Ischemic cardiomyopathy; E11.319 Type 2 diabetes mellitus with unspecified diabetic retinopathy without macular edema; Z85.828 Personal history of other malignant neoplasm of skin; Z82.49 Family history of ischemic heart disease and other diseases of the circulatory system; Z83.3 Family history of diabetes mellitus; Z87.891 Personal history of nicotine dependence; Z79.82 Long term (current) use of aspirin; Z79.899 Other long term (current) drug therapy; N18.3 Chronic kidney disease, stage 3 (moderate); Z91.19 Patient's noncompliance with other medical treatment and regimen; E78.00 Pure hypercholesterolemia, unspecified; R29.810 Facial weakness; R47.81 Slurred speech

== ENCOUNTER 2016-08-20 05:17 | Inpatient (IN) | payer OTHER, BC ==
[2016-08-16 10:42] VITALS: BMI 25.0
[2016-08-20] VITALS (10 sets, daily range): BP systolic 114–156; BP diastolic 43–81; PULSE 60–65; TEMP 36.9–37; O2SAT 95–98; BMI 25.0
[~2016-08-20] VITALS: Ht 177.8 cm; Wt 81.5 kg
[~2016-08-20 05:17] MED LIST changes: +ASCO500T16 PO; -ASCO500T3 PO; +ATOR-24 PO; -CHOL100027 PO; +GLC/500 PO; -GLIM1TAB2 PO; +HYDR-4717 PO; +INSDGIPEN SC; +MULT-506 PO; -MULTTAB PO
--- NOTE | 2016-08-20 05:39 | History and Physical ---
History & Physical Date of Service Aug 20, 2016. History & Physical Chief Complaint RICAS, TIA History of Present Illness The patient is a 81 year old male with hx of CAD s/p coronary stenting, HI, HTN , ischemic cardiomyopathy, DMII, CKD, TIA, seen in consultation for critical RICAS of 95% by CTA associated with TIA. Pt states he was at home in usual state of health eating dinner with his , when she noted L facial droop and fumbling with L hand. Pt states he was just having difficulty getting the noodles in his mouth and denies weakness of his L hand. States he did have at least 2 prior episodes of TIA in past, first one was 6 yr ago and consisted of possibly general weakness. 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 Both resolved within 1-2 hr. Denies CISNEROS, fever, chills, chest pain, sob, abd pain, N/V, rest pain, claudication, other complaints. Allergies Coded Allergies: Clonidine (Verified Adverse Reaction, Severe, SEVERE BRADYCARDIA, 08/09/16) Home Medications Scheduled Ascorbic Acid (Ascorbic Acid), 500 MG PO DAILY Aspirin (Aspirin Chewable), 81 MG PO DAILY B-Complex Vitamins (Vitamin B Complex), 1 TAB PO DAILY Coenzyme Q10 (Ubidecarenone) (Co Q-10), 1 CAP PO DAILY Lisinopril (Zestril), PO DAILY Metformin Hcl (Glucophage), PO BID Multivitamin (Multivitamin), 1 TAB PO DAILY Scheduled PRN Nitroglycerin (Nitrostat), 0.4 MG UT UD PRN for Chest Pain Problem List Medical Problems: (1) ACS (acute coronary syndrome) (2) basal cell carcinoma back (3) Basal cell carcinoma of ear (4) Basal cell carcinoma of lower extremity (5) Benign hypertension (6) CAD (coronary artery disease) (7) Cerebrovascular disease (8) Chest pain (9) CKD (chronic kidney disease), stage III (10) Coronary artery disease (11) Diabetes mellitus type 2 (12) Dyslipidemia (13) Elevated Topronin (14) Elevated troponin (15) History of left bundle branch block (LBBB) (16) HTN (hypertension) (17) Hypertensive Urgency (18) Ischemic cardiomyopathy (19) Myocardial infarct (20) ALIDA on CPAP (21) Symptomatic sinus bradycardia (22) TIA (transient ischemic attack) Surgical Problems: (1) Cardiac pacemaker in situ (2) Percutaneous transluminal coronary angioplasty status Surgical / Medical History Hx Cardiac Surgery: Yes (pacemaker, stents) Hx Abdominal Surgery: No Hx Cancer Surgery: Yes (skin) Hx Thoracic Surgery: No Hx Orthopedic: No Hx Urinary Tract Surgery: No HX Other Surgery: Yes (nasal surgery) Past Medical/Surgical History: Angioplasty/Stent, CVA/TIA, Diabetes, Heart Disease, High Cholesterol, Hypertension, Kidney Disease, HI, Sleep Apnea Family History No pertinent family history Social History Smoking Status: Former Smoker Hx Tobacco Use In Past Year?: No Hx Alcohol Use - Type & Amnt: No Hx Substance Use -Type & Amnt: No Review of Systems Constitutional: No chills, No fever, No malaise Skin: No change in color Eyes: No visual changes ENMT: No sore throat Respiratory: No DAMON, No cough, No hemoptysis, No short of breath Cardiovascular: No chest pain, No edema, No intermittent claudication, No palpitations, No syncope Gastrointestinal: No abdominal pain, No nausea, No vomiting Neurologic: No dizziness, No headache, No lethargy, No numbness, No tingling Physical Exam Constitutional: General Apperance: heathly-appearing (for age), well-nourished, well- developed Level of Distress: NAD Ambulation: ambulating normally Psychiatric: Mental Status: active & alert, normal mood, normal affect Orientation: oriented except where noted, to time, to place, to person Memory: recent memory normal, remote memory normal Head: normocephalic, atraumatic Eyes: EOM: EOMI ENMT: normal ENT inspection, hearing grossly normal Neck: supple, trachea midline Lungs: Respiratory effort: no dyspnea Auscultation: no wheezing, no rales/crackles, no rhonchi, normal breath sounds Cardiovascular: Apical Impulse: not displaced Heart Auscultation: RRR, no rubs, no gallops Peripheral Pulses: Pulses: full and equal, in all extremities except if noted Bruits: none appreciated Carotid Pulse: normal on the left, normal on the right Brachial Pulses: normal on the left, normal on the right Radial Pulse: normal on the left, normal on the right Femoral Pulse: normal on the left, normal on the right Posterior Tibialis Pulse: decreased on the left, decreased on the right Dorsalis Pedis Pulse: decreased on the left, decreased on the right Abdomen: Bowel Sounds: normal Inspection & Palpation: soft, non-distended, no tenderness, guarding & rebound Musculoskeletal: normal strength (5/5 throughout), normal tone Extremities: Upper Right: no cyanosis, no edema, no varicosities Upper Left: no cyanosis, no edema, no varicosities. Lower Right: no cyanosis, no edema, no varicosities Lower Left: no cyanosis, no edema, no varicosities Neurologic: Cranial Nerves: grossly intact Sensation: grossly intact Assessment and Plan ASSESSMENT and PLAN: RICAS 95% TIA Plan: Patient is admitted for a right carotid endarterectomy. I have discussed the risks options and benefits of the procedure with the patient. The patient understands the risks options and benefits and agrees to the procedure.
[2016-08-20] MEDS ORDERED: SUCCINYLCHOLINE CHLORIDE 20 MG/ML 10 ML VIAL IV ONE (05:53)
[2016-08-20] MEDS ORDERED: ONDANSETRON INJ 2 MG/ML 2 ML VIAL ONE (05:53)
[2016-08-20] MEDS ORDERED: EpHEDrine SULFATE INJ 50 MG/ML AMP ONE (05:53)
[2016-08-20] MEDS ORDERED: GLYCOPYRROLATE INJ 0.2 MG/ML VIAL ONE ×2 (05:53→07:59)
[2016-08-20] MEDS ORDERED: LIDOCAINE HCL 2% 2 ML VIAL (20MG/ML) ONE ×2 (05:53→07:59)
[2016-08-20] MEDS ORDERED: PHENYLEPHRINE HCL INJ 10 MG/ML VIAL ONE ×3 (05:53→09:18)
[2016-08-20] MEDS ORDERED: NEOSTIGMINE METHYLSULFATE 5 MG/5 ML SYR ONE (05:53)
[2016-08-20] MEDS ORDERED: PROPOFOL IV EMULSION 10 MG/ML 20 ML VIAL IV ONE (05:53)
[2016-08-20] MEDS ORDERED: DEXAMETHASONE SOD INJ 4 MG/ML VIAL ONE (05:53)
[2016-08-20] MEDS ORDERED: ROCURONIUM BROMIDE 10 MG/ML 5 ML VIAL ONE (05:53)
[2016-08-20] MEDS ORDERED: MIDAZOLAM HCL 1 MG/ML 2ML VIAL ONE (05:54)
[2016-08-20] MEDS ORDERED: FENTANYL CITRATE INJ 50 MCG/1 ML 2 ML VIAL ONE ×2 (05:54)
[2016-08-20] MEDS ORDERED: LACTATED RINGER'S 1000ML 1,000 ML IV SCH (06:00)
[2016-08-20] MEDS ORDERED: SODIUM CHLORIDE 0.9% 1000ML 1,000 ML IV SCH (06:00)
[2016-08-20] MEDS ORDERED: CEFAZOLIN 1000MG/55 ML D5W IV SCH (06:00)
[2016-08-20] MEDS ORDERED: DexMEDEtomidine HCL IV 100 MCG/ML VIAL IV ONE (06:25)
--- NOTE | 2016-08-20 06:56 | History & Physical Bridge Note ---
H&P Re-Evaluation Bridge Note: I have examined the patient, reviewed the History & Physical and in the interval since the performance of the History & Physical I have noted the following changes of clinical significance: No changes noted
[2016-08-20] MEDS ORDERED: THROMBIN FOR SOLN 20000 UNIT KIT ONE (07:00)
[2016-08-20] MEDS ORDERED: BUPIVACAINE/EPINEPHRINE 0.5% MPF 1:200,000 30 ML VIAL ONE (07:00)
[2016-08-20] MEDS ORDERED: GELATIN SPONGE 12-7MM ONE (07:00)
[2016-08-20] MEDS ORDERED: HEPARIN SOD (PORCINE) 1000 UNIT/ML 10 ML VIAL ONE ×2 (07:01→09:08)
[2016-08-20] MEDS ORDERED: CEFAZOLIN SOD 1 GM VIAL ONE (07:01)
[2016-08-20] MEDS ORDERED: LIDOCAINE HCL 1% 20 ML VIAL ONE (07:01)
[2016-08-20] MEDS ORDERED: ONDANSETRON INJ 2 MG/ML 2 ML VIAL IV PRN ×2 (07:30→10:30)
[2016-08-20] MEDS ORDERED: EpHEDrine SULFATE INJ 50 MG/ML AMP IV PRN (07:30)
[2016-08-20] MEDS ORDERED: FENTANYL CITRATE INJ 50 MCG/1 ML 2 ML VIAL IV PRN (07:30)
[2016-08-20] MEDS ORDERED: ATROPINE SULFATE 0.1 MG/ML 5ML SYR IV PRN (07:30)
[2016-08-20] MEDS ORDERED: ESMOLOL HCL 10 MG/ML 10 ML VIAL ONE (08:00)
[2016-08-20] MEDS ORDERED: LABETALOL HCL IV 5 MG/ML 20ML IV ONE (08:00)
[2016-08-20] MEDS ORDERED: ETOMIDATE 2 MG/ML 20 ML VIAL IV ONE (08:00)
[2016-08-20] MEDS ORDERED: NITROGLYCERIN/D5W 100 MCG/ML BTL ONE (08:34)
[2016-08-20] MEDS ORDERED: NITROGLYCERIN/D5W 100 MCG/ML 250 ML IV PRN (10:27)
[2016-08-20] MEDS ORDERED: SODIUM NITROPRUSSIDE SOLN INJ 50 MG in DEXTROSE 5% 500ML 500 ML IV PRN (10:27)
[2016-08-20] MEDS ORDERED: PHENYLEPHRINE HCL INJ 20 MG in DEXTROSE 5% 500ML 500 ML IV PRN (10:27)
[2016-08-20] MEDS ORDERED: GLUCAGON FOR INJ 1 MG VIAL SQ PRN (10:30)
[2016-08-20] MEDS ORDERED: MoRPHine SULFATE 4 MG/ML 1 ML CARP\\VIAL IV PRN (10:30)
[2016-08-20] MEDS ORDERED: ACETAMINOPHEN 325 MG TAB PO PRN (10:30)
[2016-08-20] MEDS ORDERED: GLUCOSE 10 TABS/TUBE PO PRN (10:30)
[2016-08-20] MEDS ORDERED: DEXTROSE 50% 50 ML SYR IV PRN (10:30)
[2016-08-20] MEDS ORDERED: NON-FORMULARY MEDICATION (Coenzyme Q10 (Ubidecarenone) (Co Q-10) 1 CAP) PO SCH (10:30)
[2016-08-20] MEDS ORDERED: NITROGLYCERIN 0.4 MG SL PER TAB CHARGE UT PRN (10:30)
[2016-08-20] MEDS ORDERED: GLUCOSE 40% GEL 15 GM TUBE PO PRN (10:30)
[2016-08-20] MEDS ORDERED: OXYCODONE/ACETAMINOPHEN 5-325 TAB PO PRN (10:30)
[2016-08-20] MEDS ORDERED: METOPROLOL TARTRATE 1 MG/ML VIAL IV PRN (10:30)
--- NOTE | 2016-08-20 10:34 | [facility] Post Operative Brief Note ---
Immediate Operative Summary Operative Date Aug 20, 2016. Pre-Operative Diagnosis Right internal carotid artery stenosis with stroke Post-Operative Diagnosis Same Procedure(s) Performed Right Carotid Endarterectomy with Patch Surgeon Dr Shaikh Aircraft Structural Repairer Surgeon(s) Rosario Blum PA-C / Dr Shoaib Monaco MD Estimated Blood Loss 150ml Findings preocclusive hemorrhagic plaque Specimens A. Right plaque Anesthesia Gen Complication(s) None Disposition Surgical ICU
[2016-08-20] MEDS ORDERED: VASOPRESSIN 20 UNIT/ML VIAL ONE (10:44)
--- NOTE | 2016-08-20 11:48 | OPERATIVE REPORT ---
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 POSTOPERATIVE DIAGNOSIS: Same. PROCEDURE: Right carotid endarterectomy with patch closure. SURGEON: Brennon Shaikh MD. ASSISTANTS: Shoaib Monaco MD; Rosario Blum PA-C. ANESTHESIA: General. ESTIMATED BLOOD LOSS: 50 mL COMPLICATIONS: None. INDICATIONS: This is an 81-year-old gentleman who was found to have a TIA within the past week. He had some issues with hemiparesis only. Duplex showed carotid stenosis and this was confirmed on his CTA. Duplex confirmed right internal carotid artery stenosis which was the symptomatic side. Carotid endarterectomy was indicated for stroke prevention. Risks, benefits and alternatives were explained to the patient and he agreed to proceed. PROCEDURE IN DETAIL: The patient was brought to the operating room and placed in the supine position. The right neck was prepped and draped in normal sterile fashion. A timeout was performed and all parties agreed to correct patient and procedure to be performed. Appropriate surgical prophylactic antibiotics were administered within 1 hour of the incision. An oblique incision was made along the anterior border of the right sternocleidomastoid muscle. The incision was deepened through the platysma muscle with Bovie electrocautery. The sternocleidomastoid muscle was identified and retracted laterally. The facial vein was identified and ligated. The carotid artery was identified. The carotid bifurcation was somewhat high. The dissection was carried upward. The hypoglossal nerve was clearly identified. The artery and vein tethering the hypoglossal nerve were dissected free. Care was taken not to injure the hypoglossal nerve. We did see the posterior belly of digastric muscle but this was left intact. The plaque was identified focally at the level of the carotid bifurcation. The internal, external, common carotid arteries were dissected free proximally and distally. 8000 units of IV heparin were given intravenously. Heparin was allowed to circulate and the clamps were placed. An arteriotomy was made in the common carotid artery with an 11 blade. This was extended with Arreguin scissors to the soft distal internal carotid artery. The plaque was very heavily calcified and showed signs of recent hemorrhage. It was nearly occlusive. A Sundt shunt was brought onto the field. This was placed in the internal carotid artery and allowed to backbleed. The other end was then placed in the common carotid artery. These were secured with clamps. A Jackson elevator was then used to create an endarterectomy plane. Proximal endpoint was created using Pott scissors. An eversion endarterectomy was performed on the external carotid artery. A smooth distal endpoint was created. All debris was meticulously removed from the inside of the lumen and confirmed with infusion of heparinized saline. The endarterectomy was completed. A patch was brought onto the field. It was sewn in circumferentially using Welches-Tony suture. Before the patch was completed, all the arteries were back bled, forebled, and flushed. The shunt was removed. The patch was then completed. The external carotid artery was unclamped and all debris was flushed into the external carotid artery. Finally, the internal carotid artery clamp was removed which restored blood flow to the brain. There was an excellent distal pulse in the carotid artery. Hemostasis was ensured. The wound was then closed in multiple layers with Vicryl suture and Monocryl for skin. The patient tolerated the procedure well and was extubated. He was moving all extremities and was transferred to the recovery room in satisfactory condition. I attest to the content of the Intraoperative Record and any orders documented therein. Any exceptions are noted below. MTDD
--- NOTE | 2016-08-20 12:03 | Anesthesiology Progress Note ---
Anesthesia Post Op Note Date & Time Aug 20, 2016 at 12:02 Vital Signs Pain Intensity: 0 Vital Signs Past 12 Hours Date Time Temp Pulse Resp B/P Pulse Ox O2 Delivery O2 Flow Rate FiO2 08/20/16 11:40 36.5 60 24 133/54 95 Room Air 08/20/16 11:36 60 19 118/41 94 Room Air 08/20/16 11:31 60 25 113/41 94 Room Air 08/20/16 11:31 60 25 08/20/16 11:26 60 21 113/41 94 Room Air 08/20/16 11:20 36.7 60 27 137/57 93 Room Air 08/20/16 11:15 36.7 65 30 94 Room Air 08/20/16 11:15 36.7 65 30 139/63 94 Room Air 08/20/16 11:10 67 28 109/47 93 Room Air 08/20/16 11:10 36.7 67 28 93 Room Air 08/20/16 05:40 36.9 62 20 114/65 97 Room Air 127/59 Notes Mental Status: alert / awake / arousable, participated in evaluation Pt Amnestic to Procedure: Yes Nausea / Vomiting: adequately controlled Pain: adequately controlled Airway Patency, RR, SpO2: stable & adequate BP & HR: stable & adequate Hydration State: stable & adequate Anesthetic Complications: no major complications apparent Pt was transported to ICU with O2 and monitors. Report was given to the dust collector attendant, Dr. Gaspar. Care was transferred to ICU team.
--- NOTE | 2016-08-20 12:04 | Critical Care Consultation ---
Critical Care Consultation Date of Consultation: Aug 20, 2016. Attending Physician: Brennon Shaikh M.D. Reason for Consultation: S/P CEA History of Present Illness This is a pleasant 81 y/o M with a history of CHF, CKD, HTN, CAD s/p stents, ALIDA , DM-2, and a recent hospitalization for Right parietal lobe MCA stroke along with severe right ICA stenosis who presented today for an elective right CEA. His procedure went relatively well while. He was extubated successfully and required minimal pressor support during the procedure. He is currently asymptomatic and doing well. Denies chest pain, shortness of breath, dysphagia, weakness of extremities, numbness/tingling Past Medical/Surgical History cardiac stent x2 pacemaker placement, Mohs surgery umbilical hernia repair Family History No pertinent family history HTN DIabetes Social History Smoking Status: Former Smoker Smokeless Tobacco Use: No Alcohol Use: occasionally Drug Use: none Marital Status: Housing Status: lives with family Occupation Status: retired Allergies Coded Allergies: Clonidine (Verified Adverse Reaction, Severe, SEVERE BRADYCARDIA, 08/20/16) Home Medications Scheduled Amlodipine (Norvasc), 10 MG PO QAM Ascorbic Acid (Ascorbic Acid), 500 MG PO BID Aspirin (Aspirin Chewable), 81 MG PO QPM Atorvastatin (Lipitor), 40 MG PO QAM B-Complex Vitamins (Vitamin B Complex), 1 TAB PO NOON Coenzyme Q10 (Ubidecarenone) (Co Q-10), 1 CAP PO NOON Hydralazine Hcl (Apresoline), 50 MG PO TID Insulin Glargine (Lantus Solostar), 12 UNITS SC QPM Lisinopril (Zestril), 40 MG PO QAM Metformin Hcl (Glucophage), 1 TAB PO QAM Multivitamin (Multivitamin), 1 TAB PO QPM Scheduled PRN Nitroglycerin (Nitrostat), 0.4 MG UT UD PRN for Chest Pain Current Inpatient Medications Current Inpatient Medications Medications (Trade) Dose Ordered Sig/Shamir Route Start Time Stop Time Status Last Admin Dose Admin Lactated Ringer's 1,000 ml @ 15 mls/hr Q24H IV 08/20/16 06:00 08/21/16 05:59 Cefazolin Sodium 55 ml @ 100 mls/hr PREOP IV 08/20/16 06:00 08/20/16 18:00 08/20/16 08:09 100 MLS/HR Sodium Chloride (Nss 1000ml) 1,000 ml @ 50 mls/hr Q20H IV 08/20/16 06:00 08/21/16 01:59 08/20/16 05:54 50 MLS/HR Fentanyl Citrate (Fentanyl Inj) 25 mcg Q5M PRN IV 08/20/16 07:30 08/20/16 12:30 Ondansetron HCl (Zofran Inj) 4 mg ONE PRN IV 08/20/16 07:30 08/20/16 12:30 Ephedrine Sulfate (EpHEDrine SULFATE INJ) 5 mg Q5M PRN IV 08/20/16 07:30 08/20/16 12:30 Atropine Sulfate (Atropine Sulfate 0.1MG/Ml Inj) 0.5 mg Q1M PRN IV 08/20/16 07:30 08/20/16 12:30 Acetaminophen (Tylenol Tab) 650 mg Q4H PRN PO 08/20/16 10:30 09/19/16 10:29 UNV Oxycodone/ Acetaminophen (Percocet 5-325mg Tab) FOR MODERATE PAIN ... Q4H PRN PO 08/20/16 10:30 09/03/16 10:29 UNV Morphine Sulfate (MoRPHine SULFATE INJ) 4 mg Q4H PRN IV 08/20/16 10:30 09/03/16 10:29 UNV Ondansetron HCl 4 mg 4 mg Q6H PRN IV 08/20/16 10:30 09/19/16 10:29 UNV Cefazolin Sodium/ Dextrose (Ancef Iv/D5 50ml) 55 ml @ 100 mls/hr Q8H IV 08/20/16 10:30 08/20/16 19:02 UNV Metoprolol Tartrate 5 mg 5 mg Q10M PRN IV 08/20/16 10:30 09/19/16 10:29 UNV Nitroglycerin/ Dextrose 250 ml @ 0 mls/hr Q0M PRN IV 08/20/16 10:27 09/19/16 10:26 UNV Sodium Nitroprusside 50 mg/Dextrose 502 ml @ 0 mls/hr Q0M PRN IV 08/20/16 10:27 09/19/16 10:26 UNV Dextrose/Sodium Chloride 1,000 ml @ 125 mls/hr Q8H IV 08/20/16 10:27 09/19/16 10:26 UNV Phenylephrine HCl/ Dextrose (Rehan-Synephrine Inj/D5W 500ml) 502 ml @ 0 mls/hr Q0M PRN IV 08/20/16 10:27 09/19/16 10:26 UNV Enoxaparin Sodium (Lovenox Inj) 30 mg Q12H SQ 08/20/16 10:30 09/19/16 10:29 UNV Insulin Human Regular (novoLIN-R) SLIDING SCALE IF C... ACHS SC 08/20/16 11:00 09/19/16 10:59 UNV Glucose (Glucose 40% Gel) 15-30 GRAMS 15 GRAMS... UD PRN PO 08/20/16 10:30 09/19/16 10:29 UNV Glucose (Glucose Chew Tab) 4-8 Tablets 4 Tabl... UD PRN PO 08/20/16 10:30 09/19/16 10:29 UNV Dextrose (Dextrose 50% 50ML Syringe) 25-50ML OF 50% DW IV FOR... UD PRN IV 08/20/16 10:30 09/19/16 10:29 UNV Glucagon (Glucagon Inj) 1 mg UD PRN SQ 08/20/16 10:30 09/19/16 10:29 UNV Amlodipine Besylate (Norvasc Tab) 10 mg QAM PO 08/21/16 09:00 09/20/16 08:59 UNV Ascorbic Acid (Vitamin C Tab) 500 mg BID PO 08/20/16 21:00 09/19/16 20:59 UNV Aspirin (Aspirin Chew) 81 mg QPM PO 08/20/16 21:00 09/19/16 20:59 UNV Atorvastatin Calcium (Lipitor Tab) 40 mg QAM PO 08/21/16 09:00 09/20/16 08:59 UNV Hydralazine HCl (Apresoline Tab) 50 mg TID PO 08/20/16 14:00 09/19/16 13:59 UNV Lisinopril (Zestril Tab) 40 mg QAM PO 08/21/16 09:00 09/20/16 08:59 UNV Multivitamins (Multivitamin Tab) 1 tab QPM PO 08/20/16 21:00 09/19/16 20:59 UNV Nitroglycerin (Nitrostat Tab) 0.4 mg UD PRN UT 08/20/16 10:30 09/19/16 10:29 UNV Non-Formulary Medication (B-Complex Vitamins (Vitamin B Complex)) 1 tab NOON PO 08/20/16 10:30 09/19/16 10:29 UNV Non-Formulary Medication (Coenzyme Q10 (Ubidecarenone) (Co Q-10)) 1 cap NOON PO 08/20/16 10:30 09/19/16 10:29 UNV Review of Systems Constitutional: No chills, No fever Eyes: No worsening of vision Respiratory: No cough, No dyspnea on exertion, No shortness of breath, No sputum Cardiovascular: No chest pain Abdomen: No nausea, No pain Musculoskeletal: No joint pain Neurologic: No memory loss, No numbness/tingling, No paralysis, No vertigo, No weakness Physical Exam Date Time Temp Pulse Resp B/P Pulse Ox O2 Delivery O2 Flow Rate FiO2 08/20/16 11:40 36.5 60 24 133/54 95 Room Air 08/20/16 11:36 60 19 118/41 94 Room Air 08/20/16 11:31 60 25 113/41 94 Room Air 08/20/16 11:31 60 25 08/20/16 11:26 60 21 113/41 94 Room Air 08/20/16 11:20 36.7 60 27 137/57 93 Room Air 08/20/16 11:15 36.7 65 30 94 Room Air 08/20/16 11:15 36.7 65 30 139/63 94 Room Air 08/20/16 11:10 67 28 109/47 93 Room Air 08/20/16 11:10 36.7 67 28 93 Room Air 08/20/16 05:40 36.9 62 20 114/65 97 Room Air 127/59 General Appearance: well-appearing, WD/WN, no apparent distress Head: normocephalic, atraumatic Eyes: PERRLA, no discharge, EOMI, sclerae normal, conjunctivae normal ENT: normal mouth exam, normal throat exam Neck: other (s/p Rt. CEA, Incision is clean dry and intact) Cardiovasular: regular rate/rhythm, normal S1S2, no murmur Abdomen: non tender, normal bowel sounds, no rebound, no masses Back: normal inspection Upper Extremities: no edema, no deformity Lower Extremities: no edema, no deformity, normal ROM Pulses: dorsalis pedis (R) (1+), dorsalis pedis (L) (1+) Neuro: alert, oriented x 3, normal motor exam, normal sensation, normal speech , normal memory, other (CN II-XII intact ) Laboratory Results Last 24 Hours Test 08/20/16 05:56 08/20/16 11:14 Bedside Glucose 126 mg/dl 150 mg/dl Assessment & Plan This is an 81 y/o M who is admitted to the ICU following right CEA for hemodynamic monitoring in the presence of multiple comorbidities. He has been stable thus far. Our plan for him is as follows: Neuro: Stable Recent history of small Rt. MCA stroke- no residual deficits Recommend Neuro checks q4h s/p CEA- Pain control, Monitor for Hematoma and airway compromise Watch for hyperperfusion syndrome since patient had high grade stenosis- evaristo. if headaches. Cardiovascular CHF- compensated Echo on 08/10/16, EF of 28%, Moderately dilated LV chamber size with normal wall thickness. Severely reduced LV systolic function with severe global hypokinesis. Recommend monitoring I/O's HTN: Acceptable ranges here thus far, monitor for hypotension Continue home doses of Amlodipine, Lisinopril and Hydralazine CAD s/p stents- recommend post op H/H Continue Statin, consider Beta Victoria? Would consider troponins (setting of CKD but also for possible complication of CEA) Respiratory: Stable on RA H/O of ALIDA- would recommend use of CPAP or discussion with patient about this. GI: Stable AHA/Diabetic diet No need for GI prophylaxis FEN/renal: CKD stage III- last Cr- 1.4 on 08/11 Recommend baseline PRP, Mag and Phos Endocrine: DM-2 - Would add Lantus as well as bolus insulin Recommend Accu-checks last A1c - 12.6 Heme/onc: Recommend H/H Attending Gizzard Peeler / Resident Physician Supervision Note: I interviewed and examined the patient. Discussed with Dr. Butler and agree with findings and plan as documented in the note. Any exceptions or clarifications are listed here: Patient brought to the ICU from OR extubated s/p R CEA with patch today. No intraop complications noted. IVF in OR=1liter, EBL 150ml, carotid clamp time 1 hour. No difficulties with airway. He has extensive PMH documented above and in addition has diabetic retinopathy, hyperlipidemia and poorly controlled diabetes mellitus type 2. Recent HbA1C 12.6 and had stopped taking his medications one month before his recent CVA according to documentation. His allergic reaction to clonidine is bradycardia. He stopped smoking in 1992. My exam is consistent with that documented above. No neuro deficits. Right neck incision is well approximated and without drainage. Assessment and plan are also well documented and recommendations are provided. Please call with any questions or concerns. Documented By: Ines Gaspar
[2016-08-20] MEDS: D5W AND 1/2NSS 1,000 ML IV SCH ×2 (13:30→20:55)
[2016-08-20] MEDS: ENOXAPARIN 30 MG/0.3 ML SYR SQ SCH ×2 (14:33→22:00)
[2016-08-20] MEDS: CEFAZOLIN IV 1,000 MG in DEXTROSE 5% 50ML 50 ML IV SCH ×2 (14:34→22:00)
[2016-08-20] MEDS: INSULIN HUMAN REGULAR SC SCH ×2 (16:48→20:53)
[2016-08-20] MEDS: ASCORBIC ACID 500 MG TAB PO SCH (20:52)
[2016-08-20] MEDS ORDERED: MULTIVITAMIN TAB PO SCH (21:00)
[2016-08-20] MEDS ORDERED: ASPIRIN 81 MG CHEW PO SCH (21:00)
[2016-08-21] VITALS: BP 162/70; PULSE 64; TEMP 37; O2SAT 95
[2016-08-21 01:55] VITALS: BP 164/71; PULSE 64; PULSE 94; O2SAT 98
[2016-08-21] MEDS: D5W AND 1/2NSS 1,000 ML IV SCH (03:32)
[2016-08-21 04:00] VITALS: BP 144/74; PULSE 60; TEMP 36.9; O2SAT 97
[2016-08-21 06:00] VITALS: BP 141/67; PULSE 61; O2SAT 98
--- NOTE | 2016-08-21 07:05 | Clinical Documentation Query ---
CLINICAL DOCUMENTATION QUERY Dr. DIEGO, In your clinical opinion is this patient being managed for: ( ) Chronic systolic heart failure ( ) Other explanation of clinical findings (Please Explain) ( ) Unable to determine (Please Define) ( ) Need to Discuss ( ) Not Agree If the bull gang worker documented it please ask the bull gang worker. The medical record reflects the following clinical findings, treatment, and risk factors. Clinical Indicators: Review of bull gang worker note indicates pt with compensated CHF with a recent ECHO (08/10/16) showing EF of 28%. Treatment: monitor I/O, continue outpatient meds--norvasc, apresoline, zestril; IV lopressor prn, ICU monitoring, daily wts Risk Factors: age, DM, CKD stage III, CAD, HTN, [place], cardiomyopathy Severity-adjusted DRGs require coding specificity. "Congestive" heart failure is a non-specific diagnosis. Documentation should specify "acute vs. chronic" and "systolic vs. diastolic." Please clarify and document your clinical opinion in the progress notes and discharge summary. Terms such as "probable", "suspected", "likely", "questionable", "possible", or "still to be ruled out" are acceptable. IF IN AGREEMENT, YOU MUST DOCUMENT ABOVE DIAGNOSTIC STATEMENT IN DAILY PROGRESS NOTES AND DISCHARGE SUMMARY. This document is not part of the patient's record. Thank You, Emerald Romano RN [phone]
--- NOTE | 2016-08-21 07:08 | Clinical Documentation Query ---
CLINICAL DOCUMENTATION QUERY Dr. CARRIZALES, In your clinical opinion is this patient being managed for: ( ) Chronic systolic heart failure ( ) Other explanation of clinical findings (Please Explain) ( ) Unable to determine (Please Define) ( ) Need to Discuss ( ) Not Agree The medical record reflects the following clinical findings, treatment, and risk factors. Clinical Indicators: Review of water rights specialist note indicates pt with compensated CHF with a recent ECHO (08/10/16) showing EF of 28%. Treatment: monitor I/O, continue outpatient meds--norvasc, apresoline, zestril; IV lopressor prn, ICU monitoring, daily wts Risk Factors: age, DM, CKD stage III, CAD, HTN, [place], cardiomyopathy Severity-adjusted DRGs require coding specificity. "Congestive" heart failure is a non-specific diagnosis. Documentation should specify "acute vs. chronic" and "systolic vs. diastolic." Please clarify and document your clinical opinion in the progress notes and discharge summary. Terms such as "probable", "suspected", "likely", "questionable", "possible", or "still to be ruled out" are acceptable. IF IN AGREEMENT, YOU MUST DOCUMENT ABOVE DIAGNOSTIC STATEMENT IN DAILY PROGRESS NOTES AND DISCHARGE SUMMARY. This document is not part of the patient's record. Thank You, Emerald Romano RN [phone]
--- NOTE | 2016-08-21 07:11 | Clinical Documentation Query ---
CLINICAL DOCUMENTATION QUERY Dr. RUDOLPH, In your clinical opinion is this patient being managed for: ( ) Chronic systolic heart failure ( ) Other explanation of clinical findings (Please Explain) ( ) Unable to determine (Please Define) ( ) Need to Discuss ( ) Not Agree The medical record reflects the following clinical findings, treatment, and risk factors. Clinical Indicators: Review of apparel embroidery digitizer note indicates pt with compensated CHF with a recent ECHO (08/10/16) showing EF of 28%. Treatment: monitor I/O, continue outpatient meds--norvasc, apresoline, zestril; IV lopressor prn, ICU monitoring, daily wts Risk Factors: age, DM, CKD stage III, CAD, HTN, [place], cardiomyopathy Severity-adjusted DRGs require coding specificity. "Congestive" heart failure is a non-specific diagnosis. Documentation should specify "acute vs. chronic" and "systolic vs. diastolic." Please clarify and document your clinical opinion in the progress notes and discharge summary. Terms such as "probable", "suspected", "likely", "questionable", "possible", or "still to be ruled out" are acceptable. IF IN AGREEMENT, YOU MUST DOCUMENT ABOVE DIAGNOSTIC STATEMENT IN DAILY PROGRESS NOTES AND DISCHARGE SUMMARY. This document is not part of the patient's record. Thank You, Emerald Romano, BHUPINDER [phone]
[2016-08-21] MEDS: ASCORBIC ACID 500 MG TAB PO SCH (07:53)
[2016-08-21] MEDS: ENOXAPARIN 30 MG/0.3 ML SYR SQ SCH (07:55)
[2016-08-21] MEDS: INSULIN HUMAN REGULAR SC SCH (07:56)
[2016-08-21 08:00] VITALS: BP 144/94; PULSE 61; TEMP 36.6; O2SAT 97
[2016-08-21] MEDS ORDERED: ATORVASTATIN 20 MG TAB PO SCH (09:00)
[2016-08-21] MEDS ORDERED: LISINOPRIL 40 MG TAB PO SCH (09:00)
[2016-08-21] MEDS ORDERED: AMLODIPINE BESYLATE 5 MG TAB PO SCH (09:00)
[2016-08-21] MEDS ORDERED: OXYC-57 PO (10:27)
--- NOTE | 2016-08-21 10:29 | Discharge Instructions ---
Discharge Instructions Date of Service Aug 21, 2016. Admission Reason for Admission: Right Internal Carotid Arterial Stenosis With Tia Discharge Discharge Diagnosis / Problem: s/p Right Carotid Endarterectom,R Internal Carotid Artery Stenosis with TIA Discharge Goals Goal(s): Therapeutic intervention Activity Recommendations Activity Limitations: as noted below Advance activity as tolerated. No driving x 1 week. . Instructions / Follow-Up Instructions / Follow-Up SPECIAL CARE INSTRUCTIONS: Medications: * Continue to take Aspirin as directed. Incision Care: * You may shower, but do not rub incision. You may let the warm soapy water run over it. Be sure to dry the incision well after bathing. * Do not shave directly over the incision until it is healed. * DO NOT IMMERSE THE INCISION IN A TUB/POOL/etc. UNTIL HEALED. Restrictions: * Do not drive for at least one week or if you are still taking any narcotic pain medication. * Do not lift anything heavier than a gallon of milk for one week after going home. Possible Complications: * Numbness - It is normal to have some numbness around the incision. Numbness can extend beyond the incision to areas of the neck, ear and face. The numbness is due to bruising of nerves during the surgery and will gradually improve over a period of months. * Hoarseness/Difficulty Speaking and Swallowing - The bruising of nerves in the neck can also cause a hoarse voice, difficulty speaking or swallowing. This may improve over time, HOWEVER, if it continues for more than a few days please contact our office ([phone]). * Excessive Swelling - There will be some swelling immediately after surgery which usually resolves within one week. If you notice that the swelling is getting worse, notify your surgeon ([phone]). * Drainage/Bleeding - If there is any drainage or bleeding, it should be a very small amount (less than a teaspoon per day). If you have excessive bleeding or drainage from the incision, call your surgeon ([phone]) right away. ACTIVATION OF EMERGENCY MEDICAL SYSTEM: Call 911, immediately, if you experience any of the following: Warning Signs and Symptoms of Stroke: * Sudden numbness or weakness of the face, arm or leg, especially on one side of the body * Sudden confusion, trouble speaking or understanding * Sudden trouble seeing in one or both eyes * Sudden trouble walking, dizziness, loss of balance or coordination * Sudden severe headache with no cause Do not delay calling 911 if you experience any warning signs or symptoms of a stroke. Delay in seeking medical attention may affect what treatments can be given to you. Risk Factors for Stroke: You can reduce your chances of stroke by working with your medical provider to adopt a healthy lifestyle. Some specific ways to lower your chance of stroke are: * If you are a smoker, now is the time to stop smoking cigarettes * If you are diabetic, improve the control of your blood sugars * Avoid excessive amounts of alcohol * Control high blood pressure * Lose weight if you are overweight * Be sure to lead an active lifestyle * Eat a healthy diet low in salt, cholesterol and fat You should know about other risk factors for stroke that you are unable to control. These include: * Age 55 years or older * Male gender * Certain racial groups: , or / * Family History of Stroke, Mini stroke or Heart Attack * Sickle Cell Disease You will be receiving a call from the Vascular Surgery Nurse after you are discharged. FOLLOW UP VISIT: It is important for you to keep your follow up appointments with your medical provider. Keep any scheduled doctor appointments. Current Hospital Diet Patient's current hospital diet: AHA Diet (Heart Healthy), Diabetes Type 2 Diet Discharge Diet Recommended Diet: AHA Diet (Heart Healthy), Diabetes Type 2 Diet Procedures Procedures Performed: Right Carotid Endarterectomy with Patch Pending Studies Studies pending at discharge: no Laboratory Results Hemoglobin A1c Test 08/10/16 04:45 Range/Units Estimated Average Glucose 315 mg/dl Hemoglobin A1c 12.6 H 4.5-5.6 % Lipid Panel Test 08/10/16 04:45 Range/Units Triglycerides Level 78 0-150 mg/dl Cholesterol Level 172 0-200 mg/dl HDL Cholesterol 55 mg/dl Cholesterol/HDL Ratio 3.1 LDL Cholesterol, Calculated 101 mg/dl Medical Emergencies . Who to Call and When: Medical Emergencies: If at any time you feel your situation is an emergency, please call 911 immediately. . Non-Emergent Contact Non-Emergency issues call your: Primary Care Provider . "Provider Documentation" section prepared by Rosario Blum. VTE Core Measure Inpt VTE Proph given/why not?: Enoxaparin (Lovenox)[facility] Drug Monitoring Program Search Results: patient reviewed within database, no issues identified
--- NOTE | 2016-08-21 10:42 | Progress Note ---
Progress Note Date of Service: Aug 21, 2016. Subjective No complaints Problem List Medical Problems: (1) Benign hypertension Status: Chronic (2) Cerebrovascular disease Status: Chronic (3) CKD (chronic kidney disease), stage III Status: Chronic (4) Coronary artery disease Status: Chronic (5) Diabetes mellitus type 2 Status: Chronic (6) Dyslipidemia Status: Chronic (7) History of left bundle branch block (LBBB) Status: Chronic (8) Ischemic cardiomyopathy Status: Chronic (9) ALIDA on CPAP Status: Chronic (10) Right rotator cuff tendinitis Status: Acute (11) Symptomatic sinus bradycardia Status: Chronic Surgical Problems: (1) Cardiac pacemaker in situ Status: Chronic Objective Vital Signs Vital Signs Past 12 Hours Date Time Temp Pulse Resp B/P Pulse Ox O2 Delivery O2 Flow Rate FiO2 08/21/16 08:00 Room Air 08/21/16 08:00 36.6 61 16 144/94 97 Room Air 08/21/16 06:00 61 16 141/67 98 Room Air 08/21/16 04:00 Room Air 08/21/16 04:00 36.9 60 15 144/74 97 Room Air 08/21/16 01:55 64 16 164/71 98 Room Air 08/21/16 00:00 37.0 64 15 162/70 95 Room Air 08/21/16 00:00 Room Air 08/20/16 23:00 63 16 154/71 96 Room Air Exam Awake and alert No neuro deficits on exam Incision dry and clean. Intake & Output 8-Hour Column 08/20/16 08/21/16 08/21/16 16:00 00:00 08:00 Intake Total 1874 ml 1690 ml 1150 ml Output Total 550 ml 1400 ml Balance 1874 ml 1140 ml -250 ml 24-Hour Column 08/21/16 08:00 Intake Total 4714 ml Output Total 1950 ml Balance 2764 ml Laboratory and Microbiology Results Past 24 Hours Test 08/20/16 11:14 08/20/16 16:16 08/20/16 20:27 08/21/16 06:41 Range/Units Bedside Glucose 150 239 283 222 70-99 mg/dl Microbiology Results 08/20/16 MRSA DNA Surveillance Screen - Final, Complete Specimen Negative for MRSA by DNA Probe Imp: Post CEA Plan: Doing well Will d/c today
[2016-08-21 10:48] VITALS: BP 144/94; PULSE 61; TEMP 36.6; O2SAT 97
[2016-08-21 10:50] VITALS: Ht 177.8 cm; Wt 81.5 kg
[2016-08-21] MEDS ORDERED: VITAMIN B COMPLEX TAB PO SCH (12:00)
--- NOTE | 2016-08-23 12:41 | DISCHARGE SUMMARY ---
ADMISSION DIAGNOSIS: Severe right internal carotid artery stenosis with transient ischemic attack. DISCHARGE DIAGNOSES: 1. Status post right carotid endarterectomy with patch. 2. Severe right internal carotid artery stenosis with transient ischemic attack. DISCHARGE CONDITION: Stable. CONSULTATIONS IN THE HOSPITAL: Included critical care. PROCEDURES IN THE HOSPITAL: Included right carotid endarterectomy with patch performed on 08/20/2016 with an EBL of 150 mL and no significant complications. HISTORY OF PRESENT ILLNESS: Mr. Milian is an 81-year-old male who presented to the [facility] after he noticed symptoms of TIA after he developed symptoms including left facial droop and weakness of his left hand. According to the patient, he had a history of having 2 TIAs in the past 6 years, most recently being 2-3 years ago with similar type symptoms. The patient does have a history of coronary artery disease, status post coronary stenting, [place], hypertension, ischemic cardiomyopathy, type 2 diabetes mellitus, chronic kidney disease, and is a former smoker. The patient's TIA symptoms appeared to resolve. During his workup at the hospital, he was found to have 95% stenosis of his right internal carotid artery with concern for hemorrhagic plaque. Due to the patient's symptoms and risk for further more advanced CVA, the patient was recommended to undergo carotid endarterectomy. The procedure, risks, benefits, alternatives were discussed with the patient, and he expressed understanding and agreement to proceed. HOSPITAL COURSE: The patient was admitted on 08/20/2016 after undergoing his right carotid endarterectomy. As I said, this was performed without significant complications. He had an EBL of 150 mL. Labs remained essentially stable. Vital signs remained stable as well. He had mild discomfort in his right neck surgical incision. He denied any symptoms aside from some mild fatigue as well and was felt to be stable enough for discharge on postop day #1 as he was ambulating and taking food and drink by mouth. PHYSICAL EXAMINATION: VITAL SIGNS: On day of discharge, the patient's vital signs were as follows: Temperature 36.6, pulse was 61, respiratory rate of 16, blood pressure of 144/94, pulse oximetry 97% on room air. CONSTITUTIONAL: The patient is generally healthy appearing for age, well-nourished, well-developed elderly male in no acute distress. He ambulated without assistance, and active, alert and oriented x4, with normal recent and remote memory. HEAD: Normocephalic and atraumatic. EYES: EOMI. ENMT: No hearing loss, rhinorrhea or pharyngeal erythema. NECK: Right neck surgical incision is well approximated and healing appropriately. There is very mild local edema. There is no significant ecchymosis. There is no discharge or erythema noted. The area is mildly tender to palpation. His trachea is midline. His left neck demonstrates no swelling or discoloration. LUNGS: Decreased throughout but clear bilaterally. CARDIOVASCULAR: Demonstrates nondisplaced apical impulse with a regular rate and rhythm, without any significant murmurs. Peripheral pulses are full and equal in all extremities unless otherwise noted, specifically they were normal in his carotid, brachial, radial and femoral pulses. Bilateral lower extremity distal pulses are +1. He has brisk capillary refill and no sign of distal ischemia. ABDOMEN: Soft, nontender, with normoactive bowel sounds in all 4 quadrants. No guarding or rebound. There is no flank or CVA tenderness and no pulsatile mass appreciable. EXTREMITIES: Bilateral upper extremities demonstrate no cyanosis, edema, clubbing, varicosities or ulcers. Bilateral lower extremities demonstrate no cyanosis, edema, clubbing, varicosities or ulcers. NEUROLOGIC: The patient has no significant focal deficits aside from some slight weakness of his left hand which is residual. DIET UPON DISCHARGE: Should be an AHA diabetic diet. MEDICATIONS: Are in the chart and are as per his discharge instructions. FOLLOWUP: Should be with Dr. Shaikh or his PA Rosario Blum within 2 weeks for reevaluation. The patient was advised to call our office with any other questions or concerns.
== END 2016-08-21 12:25 | disposition home or self-care (01) | DRG 38 ==
LOC: C.ACU 05:17 → C.MSICU 06:15 → UNDOADMIN 06:15
PROVIDERS: ADMIT Surgery Vascular Surgery; ATTEND Surgery Vascular Surgery
PROC: 03UK0JZ Supplement Right Internal Carotid Artery with Synthetic Substitute, Open Approach (ICD-10-PCS; principal; 2016-08-20 07:30)
PROC: 03CK0ZZ Extirpation of Matter from Right Internal Carotid Artery, Open Approach (ICD-10-PCS; principal; 2016-08-20 07:30)
DX: G45.9 Transient cerebral ischemic attack, unspecified (principal); I13.0 Hypertensive heart and chronic kidney disease with heart failure and stage 1 through stage 4 chronic kidney disease, or unspecified chronic kidney disease; I65.21 Occlusion and stenosis of right carotid artery; I25.10 Atherosclerotic heart disease of native coronary artery without angina pectoris; I25.5 Ischemic cardiomyopathy; Z95.5 Presence of coronary angioplasty implant and graft; I12.9 Hypertensive chronic kidney disease with stage 1 through stage 4 chronic kidney disease, or unspecified chronic kidney disease; E11.22 Type 2 diabetes mellitus with diabetic chronic kidney disease; N18.3 Chronic kidney disease, stage 3 (moderate); Z85.828 Personal history of other malignant neoplasm of skin; G47.33 Obstructive sleep apnea (adult) (pediatric); E78.5 Hyperlipidemia, unspecified; Z95.0 Presence of cardiac pacemaker; E78.00 Pure hypercholesterolemia, unspecified; Z87.891 Personal history of nicotine dependence; Z82.49 Family history of ischemic heart disease and other diseases of the circulatory system; Z83.3 Family history of diabetes mellitus; E11.65 Type 2 diabetes mellitus with hyperglycemia; Z79.4 Long term (current) use of insulin; I25.2 Old myocardial infarction; R29.810 Facial weakness; R53.1 Weakness; Z88.6 Allergy status to analgesic agent; Z79.82 Long term (current) use of aspirin; Z79.899 Other long term (current) drug therapy

== ENCOUNTER 2018-09-04 04:59 | Inpatient (IN) ==
--- NOTE | 2018-08-27 14:15 | Anesthesiology Consultation ---
Date of Service August 27, 2018 Assessment & Plan (1) Encounter for pre-operative examination: Chart Review Chart Review: Acceptable Risk for Surgery and Patient seen in Pre Admission Testing Consults Requested cardiac (Iesha Riojas PA-C) Patient was seen by cardio on 08/24/18. Per note, "Patient has no active anginal or CHF symptoms. Previously very active, without symptoms, now difficulty ambulating with significant hip pain. He is aware that he is considered high risk for surgical procedures given his cardiomyopathy. He wishes to proceed. He reports he has been holding his ASA in prep for surgery. I have advised him to restart ASA 81mg daily and hold for 5 days prior to surgery only." Patient also had an updated ECHO done on 08/31. Teaching & Discussion Pre-Anesthesia Teaching/Discussion Notes: Instructed NPO after midnight before surgery, except medications with 15 cc of water. Medication instructions provided according to the PAT guidelines. History Surgery Operation Date: 09/04/18 10:40 Proposed Procedures p Right Total Hip Replacement - Daryl Trujillo MD Height/Weight Height: 5 ft 10 in Weight: 82.8 kg Allergies Allergy/AdvReac Type Severity Reaction Status Date / Time clonidine AdvReac Severe SEVERE Verified 08/25/18 13:28 BRADYCARDIA Medications Home Medications Medication Instructions Recorded Confirmed Last Taken nitroglycerin 0.4 mg SUBLINGUAL UD PRN #0 sub 11/12/11 08/25/18 Unknown aspirin [Aspirin Childrens] 81 mg PO 0 #0 tab 04/16/13 08/25/18 03/17/18 coenzyme Q10 100 mg PO BID #0 cap 10/06/15 08/25/18 03/17/18 ascorbic acid (vitamin C) 500 mg PO BID #0 tab 08/09/16 08/25/18 03/18/18 multivitamin 1 tab PO DAILY #0 tab 08/09/16 08/25/18 03/17/18 vitamin B complex-folic acid [B 1 tab PO QAM #0 08/09/16 08/25/18 03/17/18 Complex 100] hydralazine 75 mg PO TID #0 tab 08/16/16 08/25/18 03/18/18 insulin glargine [Lantus Solostar 10 unit SUBCUT 0 #0 pen 08/16/16 08/25/18 03/17/18 U-100 Insulin] lisinopril 40 mg PO 2129 #0 tab 08/16/16 08/25/18 03/17/18 metoprolol tartrate 25 mg PO 212908/25/18 08/25/18 Unknown Past Medical History Medical History CAD (coronary artery disease) HTN (hypertension) TIA (transient ischemic attack) SEPTEMBER 2016 Cancer BCC Chronic kidney disease STAGE 3. MONITORS. Diabetes mellitus, type 2 IDDM Ischemic cardiomyopathy EF 29% on 08/31/18 LBBB (left bundle branch block) Myocardial Infarction APRIL 2013. Pacemaker LAST CHECKED 08/24/18. FOLLOWS WITH DR QUINTANA. Retinopathy Sleep apnea NO MACHINE. Past Family History Family History Other Family history non-contributory Past Surgical History Surgical History History of cardiac cath x2 History of carotid endarterectomy RIGHT 08/20/16 - MAC #3, ETT# 7.5 HiLo Grade 1 History of cataract surgery BILATERAL History of heart artery stent 2 OR 3 STENTS, [facility]. [place] 2012. History of herniorrhaphy UMBILICAL HERNIA REPAIR WITH MESH S/P Mohs surgery for basal cell carcinoma Past Anesthesia History No Hx of Anesthesia Complications and No Family Hx of Anesthesia Complications History of PONV No Motion Sickness Screening History of Motion Sickness: No Social History Smoking Status: Former smoker tobacco type: pipe and cigars Do You Dip or Chew Tobacco: No Smoking End Date: QUIT 50 YEARS AGO Hx Alcohol Use: No Hx Substance Use: No substance use type: does not use Exercise / Class Metabolic Activity II 4-5 Yardwork/Stairs/Walk up hill (Was walking 3-12 miles per day until November 2017 when hip was injured. Now walks daily, but much less. Able to climb FOS. Denies CP or SOB. ) Review of Systems Patient denies chest pain, shortness of breath, dyspnea on exertion, reflux, cough, wheezing, palpitations. +Joint Pain (Right hip, knees) Physical Exam Vital Signs BP: 147/75 P: 54 R: 14 T: 98.1 SPO2: 96% on RA ENMT Thyromental Distance: > or= 3.5 Finger Breadths (4) Mallampati Class: II Neck normal visual inspection and trachea midline; neck extension not limited Respiratory normal respiratory effort Auscultation: lungs clear to auscultation bilaterally Cardiovascular Rate/Rhythm: regular rate and regular rhythm Heart Sounds: no murmur Vessels: no carotid bruit Chest (Breasts) Chest: + pacemaker Neurologic moves all extremities Psychiatric Orientation: alert and oriented x 3 Testing Electrocardiogram Date: 08/24/18 Atrial paced rhythm @73bpm with prolonged AV conduction. Nonspecific intraventricular conduction block. Anterolateral infarct, age undetermined. When compared with ECG or 02/01/15, Electronic atrial pacemaker has replaced sinus rhythm. Ventricular rate has increased by 33bpm. Nonspecific intraventricular conduction block has replaced left bundle branch block. Chest X-Ray Date: 08/27/18 Findings: + NAD Echocardiogram Date: 08/31/18 EF: 29% Moderately dilated LV chamber size with normal wall thickness. Severely reduced LV chamber size with normal wall thickness. Severely reduced LV systolic function. There is a large sized apical, inferior, lateral, and posterior wall motion abnormality with akinesis of the segments. The anterior wall and inferior septum are hypokinetic. Grade I diastolic dysfunction. Mild mitral regurgitation. The estimated pulmonary artery systolic pressure is 42mmHg. Compared to last available study, there has been no interval change. Stress Test Date: 12/23/16 Type: nuclear (Lexiscan) Valvular Disease: no significant valvular disease Lexiscan nuclear stress test is abnormal with a large fixed perfusion defect of severe intensity encompassing the lateral, inferolateral, and inferior wall myocardial vazquez, consistent with a large scar in this territory. Normal perfusion to the anterior and septal vazquez in noted. Gated SPECT reveals lateral inferolateral and inferior hypokinesis to akinesis with septal dyskinesis consistent with LBBB. The calculated left ventricular EF is 33%, but by visual inspection it appears to be worse than this and in the range of 20-25%. EKG response to pharmacologic stress is equivocal for excluding ischemia due to the underlying LBBB. Sinus rhythm was noted throughout the study. Cardiac Catheterization Date: 04/09/13 Findings: + pertinent finding (5% proximal lesion with distal in-stent restenosis and significant stenosis beyond the stent. 90% OM1 disease. 100% distal LCx. ) Intervention: + PCI (of proximal RCA (Bare metal stent)) Conclusions: - Coronary Arteries: -The coronary arteries have significant 2 vessel disease. - 95% proximal lesion with distal in-stent restenosis and significant stenosis beyond the stent. 90% OM1 disease. 100% distal LCx. - Coronary Intervention Outcome Successful: -Successful PCI of the proximal RCA. The device(s) used included a bare metal stent. -Prior PCI Status: -The previously placed stent in the proximal RCA has significant in-stent restenosis. Recommendations: -Aggressive risk factor and life style modification. - Continue medical management -Recommend 81mg of ASA per day indefinitely. -Recommend Plavix 75mg for at least 1 month. Laboratory Results 08/27/18 14:46 08/27/18 14:46 Blood Type A Positive 08/27/18 14:46 Antibody Screen NEGATIVE 08/27/18 14:46 PT 10.6 Seconds (9.0-12.0) 08/27/18 14:46 INR 1.0 (0.9-1.1) 08/27/18 14:46 APTT 26.0 Seconds (21.0-31.0) 08/27/18 14:46 Hemoglobin A1c 7.7 % (4.5-5.6) H 08/27/18 14:46 Surgeon notified of elevated BSG and A1C.
--- NOTE | 2018-08-27 14:21 | PAT Medication Instructions ---
Medication Instructions Date of Service August 27, 2018 Home Medications nitroglycerin 0.4 mg SUBLINGUAL NEEDED aspirin [Aspirin Childrens] 81 mg PO 2130 coenzyme Q10 100 mg PO BID ascorbic acid (vitamin C) 500 mg PO BID multivitamin 1 tab PO DAILY vitamin B complex-folic acid 1 tab PO QAM hydralazine 75 mg PO TID insulin glargine [Lantus Solostar U-100 Insulin] 10 unit SUBCUT 0 lisinopril 40 mg PO 2130 metoprolol tartrate 25 mg PO 2130 Continue as directed nitroglycerin 0.4 mg SUBLINGUAL NEEDED STOP taking 2 weeks before surgery coenzyme Q10 100 mg PO BID Garlic DO NOT take the morning of surgery ascorbic acid (vitamin C) 500 mg PO BID vitamin B complex-folic acid 1 tab PO QAM Take morning of surgery With a small sip of water, OTHERWISE NOTHING TO EAT OR DRINK AFTER MIDNIGHT: hydralazine 75 mg PO TID Take evening before surgery aspirin [Aspirin Childrens] 81 mg PO 0 ascorbic acid (vitamin C) 500 mg PO BID hydralazine 75 mg PO TID insulin glargine [Lantus Solostar U-100 Insulin] 10 unit SUBCUT 0 lisinopril 40 mg PO 2130 metoprolol tartrate 25 mg PO 2130 Other Notes If you have any questions please call us at [phone] or [phone] or [phone] or [phone]
--- NOTE | 2018-08-27 15:07 | XRay Report ---
XR chest Pre-admission PA/Lat CLINICAL HISTORY: Preoperative chest COMPARISON STUDY: 08/09/2016 FINDINGS: The heart is borderline enlarged. There is a left subclavian dual-chamber central venous pa cemaker present. There is no failure. There is no focal pulmonary consolidation. There are no pleural effusions.[ IMPRESSION: No active disease in the chest. Electronically signed by: Robert Lyons M.D. 08/27/2018 3:06 PM
[2018-08-27 16:04] LABS: Basophils # (auto) 0.03 K/uL (0-0.2); Basophils % (auto) 0.4 %; Eosinophils # (auto) 0.22 K/uL (0-0.5); Eosinophils % (auto) 2.6 %; Hematocrit (blood only) 44.1 % (42-52); Hemoglobin 15.1 g/dL (14.0-18.0); Immature Granulocytes # (auto) 0.01 K/uL (0.00-0.02); Immature Granulocytes % (auto) 0.1 %; Lymphocytes # (auto) 0.95 K/uL (1.2-3.4); Lymphocytes % (auto) 11.4 %; Mean Corpuscular Hgb Conc 34.2 g/dL (32-36); Mean Corpuscular Volume 88.7 fL (80-100); Mean Platelet Volume 10.8 fL (7.4-10.4); Monocytes # (auto) 0.81 K/uL (0.11-0.59); Monocytes % (auto) 9.7 %; Neutrophils # (auto) 6.35 K/uL (1.4-6.5); Neutrophils % (auto) 75.8 %; Platelet Count 139 K/uL (130-400); RDW Standard Deviation 42.3 fL (36.4-46.3); Red Blood Count 4.97 M/uL (4.7-6.1); White Blood Count 8.37 K/uL (4.8-10.8)
[2018-08-27 16:10] LABS: BUN Creatinine Ratio 22.6 (10-20); Calcium 9.5 mg/dl (8.5-10.1); Est GFR (African American) 46.2; Est GFR (Non-African American) 39.8; Potassium 4.5 mmol/L (3.5-5.1)
[2018-08-27 16:20] LABS: Prothrombin Time 10.6 Seconds (9.0-12.0)
--- NOTE | 2018-08-27 22:13 | History and Physical Report ---
DATE OF ADMISSION: 09/04/2018 CHIEF COMPLAINT: Right hip pain and decreased ability to ambulate. HISTORY OF PRESENT ILLNESS: An 83-year-old active gentleman who has had about a 6month history of markedly increased right hip pain and discomfort. No known injury. He has been followed at [facility] He was initially referred to the spine team, eventually, he saw Dr. Kaplan. They did an x-ray and MRI, which would suggest a femoral head fracture. He was told to keep weight off his leg. He has been a bit frustrated by this. He has been a very avid walker and unable to walk much in the past 6 months. He has not seen any improvements. He describes buttock pain, groin pain, thigh pain down to his knee. No numbness or radicular symptoms. He now would like to have definitive intervention. PAST MEDICAL HISTORY: 1. Hypertension. 2. Coronary artery disease, status post AR x2 and stents placed at [facility] followed by Dr. Baird. 3. Mini stroke without sequelae. 4. Diabetes for 7 years. 5. Skin cancer status post Mohs surgery. PAST SURGICAL HISTORY: 1. Pacemaker placement. 2. Three stents placed in his heart at [facility], last one in 2012. 3. Mohs surgery for skin. ALLERGIES: None. CURRENT MEDICINES: 1. Insulin. 2. Hydralazine 1.5 mg 3 times a day. 3. Tylenol. 4. Lisinopril 40 mg a day. 5. Metoprolol XL 25 mg day. 6. Multivitamin. 7. Norvasc 10 mg. 8. Nitroglycerin. 9. Aspirin 81 mg a day. SOCIAL HISTORY: An 83-year-old male. He is with 5 children. He does not drink. Lives in [facility]. FAMILY HISTORY: Significant for heart disease and diabetes. REVIEW OF SYSTEMS: As above. He is diabetic. Does have a significant heart history, followed by Dr. Baird. Denies any current cardiac symptoms. No bleeding problems. No history of DVT or PE. PHYSICAL EXAMINATION: GENERAL: Reveals a pleasant, healthy-appearing spry elderly male. HEENT: Benign. NECK: Supple. No lymphadenopathy. LUNGS: Clear to auscultation. HEART: Regular rate and rhythm. ABDOMEN: Soft, nontender, nondistended. EXTREMITIES: Grossly neurovascularly intact as follows: Examination of the right and left hip and leg reveals patient walks with a slow kind of shuffling gait. He does limp on the right side. Leg lengths clinically appear pretty equal. He has marked pain with any type of hip motion and particularly stiffness. He can only internally rotate to -10. Negative straight leg raise. He is neurologically intact. X-RAYS: X-ray of the right hip were reviewed. Shows advanced right hip DJD. He has got complete loss of superior joint space. MRI from [facility] is reviewed. It shows significant hip arthritis. He has got some bone marrow edema in his head. I do not see any obvious clear fracture. ASSESSMENT: An 83-year-old male with a month history of right hip pain and discomfort consistent with advanced hip arthritis. I do not think he has got a true femoral head fracture, but just some edema in his head from the arthritic changes. He has not had any improvement in the past 6 months and it is really cramping his lifestyle. He would like to have his hip fixed. PLAN: We talked about treatment options. I think the best treatment for this gentleman is a total hip replacement. Risks and benefits of right total hip replacement were explained to the patient including but not limited to DVT, PE, , infection, neurological injury, vascular injury, bleeding problem, pain, limited range of motion, stiffness, failure to relieve the symptoms, incomplete relief of symptoms, need for further surgery in the future, fracture, leg length inequality, nerve palsy, etc. He does have a significant heart history and an increased risk as a result. He is aware of this and would like to proceed. We will proceed with a hip replacement, assuming he gets cleared. As far as discharge plans, he is planning to be discharged to home using [facility]. We can have Dr. Baird follow him in the hospital. His creatinine is somewhat elevated, but will be careful with any NSAIDs. We will hold his lisinopril the morning of surgery and take his metoprolol. We will use insulin sliding scale coverage in the hospital. RENE
[2018-08-28 06:22] LABS: Estimated Average Glucose 174 mg/dl; Hemoglobin A1C 7.7 % (4.5-5.6)
[2018-09-04] MEDS ORDERED: ACETAMINOPHEN 500 MG TAB PO SCH (06:00)
[2018-09-04] MEDS ORDERED: TRANEXAMIC ACID 1,000 MG **IV Pre-op IV SCH (06:00)
[2018-09-04] MEDS ORDERED: CEFAZOLIN 2000MG 2,000 MG/15 ML SYR IV SCH (06:00)
[2018-09-04] MEDS ORDERED: METOCLOPRAMIDE HCL 10 MG TABLET PO SCH (06:00)
[2018-09-04] MEDS ORDERED: GABAPENTIN 300 MG PO SCH (06:00)
[2018-09-04] MEDS ORDERED: LR 60ML/HR IV SCH (06:00)
[2018-09-04] MEDS ORDERED: LR 500ML BOLUS, THEN 15ML/HR IV SCH (06:00)
[2018-09-04] MEDS ORDERED: FAMOTIDINE 20 MG TAB PO SCH (06:00)
[2018-09-04] MEDS ORDERED: BUPIVACAINE/EPINEPHRINE 0.5% MPF 1:200,000 30 ML VIAL ONE (06:33)
[2018-09-04] MEDS ORDERED: BACITRACIN INJ 50,000 UNIT VIAL ONE (06:33)
[2018-09-04] MEDS ORDERED: BUPIVACAINE 0.5 % 5 MG/1 ML PF 10ML VIAL ONE (06:34)
[2018-09-04] MEDS ORDERED: MIDAZOLAM HCL 1 MG/ML 2ML VIAL ONE (06:41)
[2018-09-04] MEDS ORDERED: LIDOCAINE HCL 2% 2 ML VIAL/AMP(20MG/ML) INFIL ONE (06:41)
[2018-09-04] MEDS ORDERED: PROPOFOL IV EMULSION 10 MG/ML 20 ML VIAL IV ONE (06:41)
[2018-09-04] MEDS ORDERED: fentaNYL citrate 100 MCG/2 ML VIAL ONE ×2 (06:41→07:35)
[2018-09-04] MEDS ORDERED: MoRPHine SULFATE PF 1 MG/ML 10 ML AMP/VIAL ONE (06:41)
--- NOTE | 2018-09-04 06:49 | History & Physical Bridge Note ---
Date of Service September 04, 2018 History & Physical Bridge Note I have examined the patient, reviewed the History & Physical and in the interval since the performance of the History & Physical I have noted the following changes of clinical significance: no changes noted
[2018-09-04] MEDS ORDERED: CISATRACURIUM BESYLATE IV SOLN 2 MG/ML 10 ML VIAL IV ONE (07:38)
[2018-09-04] MEDS ORDERED: NEOSTIGMINE METHYLSULFATE 5 MG/5 ML SYR ONE (07:38)
[2018-09-04] MEDS ORDERED: ETOMIDATE 2 MG/ML 20 ML VIAL IV ONE (07:38)
[2018-09-04] MEDS ORDERED: ONDANSETRON INJ 2 MG/ML 2 ML VIAL ONE (07:38)
[2018-09-04] MEDS ORDERED: GLYCOPYRROLATE 0.2 MG/ML VIAL ONE (07:38)
[2018-09-04] MEDS ORDERED: HYDROmorphone INJ 2 MG/ML SYR/VIAL ONE (07:39)
[2018-09-04] MEDS ORDERED: ONDANSETRON INJ 2 MG/ML 2 ML VIAL IV PRN ×2 (08:27→09:45)
[2018-09-04] MEDS ORDERED: FLUMAZENIL 0.1 MG/1 ML 10 ML VIAL IV PRN (08:27)
[2018-09-04] MEDS ORDERED: PROMETHAZINE HCL 12.5 MG in SODIUM CHLORIDE 0.9% 50 ML IV PRN (08:27)
[2018-09-04] MEDS ORDERED: LABETALOL HCL IV 5 MG/ML 20ML IV PRN (08:27)
[2018-09-04] MEDS ORDERED: ePHEDrine sulfate 50 MG/ML AMP IV PRN (08:27)
[2018-09-04] MEDS ORDERED: ATROPINE SULFATE 0.1 MG/ML 10ML SYR IV PRN (08:27)
[2018-09-04] MEDS ORDERED: NALOXONE HCL 0.4 MG/1 ML VIAL/CARP IV PRN ×2 (08:27→09:45)
--- NOTE | 2018-09-04 08:30 | Post Operative Brief Note ---
Immediate Post Op Note v1 Date of Surgery September 04, 2018 Pre & Post Diagnosis Operation Date: 09/04/18 07:00 Pre-Op Diagnosis: Right Hip Degenerative Joint Disease Post-Op Diagnosis: Right Hip Degenerative Joint Disease Procedure Operation Date: 09/04/18 07:00 Actual Procedures p Right Total Hip Replacement(Right) - Daryl Trujillo MD Surgeon Daryl Trujillo MD Diaper Machine Tender Bj, PAC Estimated Blood Loss 200 Findings Consistent with Post-Op Diagnosis Fluids 1400 cc Specimens Right Femoral Head Disposition Accompanied Patient To Recovery: No Disposition: Recovery Room
[2018-09-04] MEDS: fentaNYL citrate 100 MCG/2 ML VIAL IV PRN ×4 (08:58→09:13)
[2018-09-04] MEDS ORDERED: HYDROmorphone INJ 0.5 MG/0.5 ML SYR IV PRN ×2 (09:02→09:45)
[2018-09-04] MEDS ORDERED: PHENYLEPHRINE 100MCG/ML 5ML SYR ONE (09:14)
--- NOTE | 2018-09-04 09:29 | Anesthesiology Progress Note ---
Date of Service September 04, 2018 Anesthesia Post Procedure Vital Signs Vital Signs: Temp Pulse Pulse Resp BP BP Pulse Ox 09/04/18 09:26 62 11 L 167/69 H 100 09/04/18 09:25 60 17 100 09/04/18 09:22 60 8 L 167/72 H 98 09/04/18 09:20 36.4 C L 60 62 0 L 173/73 H 167/72 H 99 09/04/18 09:15 60 3 L 166/72 H 99 09/04/18 09:10 60 3 L 175/75 H 99 09/04/18 09:05 60 4 L 173/74 H 99 09/04/18 09:00 60 18 172/79 H 99 09/04/18 08:55 61 3 L 168/76 H 100 09/04/18 08:50 60 13 157/73 H 99 09/04/18 08:47 60 6 L 166/70 H 99 09/04/18 08:45 61 13 99 09/04/18 08:41 62 14 123/67 100 09/04/18 08:40 61 10 L 89 L 09/04/18 08:38 62 8 L 154/64 H 98 09/04/18 08:37 36.1 C L 64 63 16 154/64 H 99 09/04/18 05:40 37.0 C 68 18 175/88 H 95 Pain Intensity Right Hip: Pain Intensity: 2 Notes Mental Status: alert / awake / arousable Patient Amnestic to Procedure: Yes Nausea / Vomiting: adequately controlled Pain: adequately controlled Airway Patency, RR, SpO2: stable & adequate BP & HR: stable & adequate Hydration State: stable & adequate Anesthetic Complications: no major complications apparent
[2018-09-04] MEDS ORDERED: PHARMACY GLYCEMIC MGMT CONSULT STA (09:45)
[2018-09-04] MEDS ORDERED: MULTIVITAMIN TAB PO SCH (09:45)
[2018-09-04] MEDS ORDERED: GLUCOSE 40% GEL 15 GM TUBE PO PRN (09:45)
[2018-09-04] MEDS ORDERED: METOCLOPRAMIDE HCL INJ 5 MG/ML 2 ML VIAL IV PRN (09:45)
[2018-09-04] MEDS ORDERED: GLUCAGON FOR INJ 1 MG VIAL SQ PRN (09:45)
[2018-09-04] MEDS ORDERED: TAMSULOSIN HCL 0.4 MG CAP PO PRN (09:45)
[2018-09-04] MEDS ORDERED: BISACODYL 10 MG SUPP PR PRN (09:45)
[2018-09-04] MEDS ORDERED: CARBOHYDRATES FOR HYPOGLYCEMIA PO PRN (09:45)
[2018-09-04] MEDS ORDERED: NON-FORMULARY MEDICATION (Coenzyme Q10 100 MG) PO SCH (09:45)
[2018-09-04] MEDS ORDERED: DEXTROSE 50% 50 ML SYRINGE IV PRN (09:45)
[2018-09-04] MEDS ORDERED: MAGNESIUM HYDROXIDE SUSP 30 ML UDC PO PRN (09:45)
[2018-09-04] MEDS ORDERED: NITROGLYCERIN SL 0.4 MG/TAB TAB SL PRN (09:45)
[2018-09-04] MEDS ORDERED: ALUMINUM/MAGNESIUM SUSP 30 ML UDC PO PRN (09:45)
[2018-09-04] MEDS ORDERED: GLUCOSE 10 TABS/TUBE PO PRN (09:45)
[2018-09-04] MEDS ORDERED: ASCORBIC ACID 500 MG TAB PO SCH (09:45)
--- NOTE | 2018-09-04 09:45 | XRay Report ---
XR hip 1V RT w pelvis CLINICAL HISTORY: Postoperative evaluation. COMPARISON: Pelvis and right hip radiographs August 21, 2018. FINDINGS: Alignment of the right hip arthroplasty is anatomic. There is no fracture or unexpected ra diopaque foreign body. There are skin rachelle and acetabular screws. Osteoarthritis of the left hip i s incidentally noted. IMPRESSION: Expected findings following total right hip arthroplasty. Electronically signed by: Lonnie Talbot M.D. 09/04/2018 9:43 AM
[2018-09-04] MEDS ORDERED: PHARMACY GLYCEMIC MGMT CONSULT PRN (10:38)
[2018-09-04] MEDS: SODIUM CHLORIDE 0.9% 1000ML 1,000 ML IV SCH ×2 (10:47→21:00)
--- NOTE | 2018-09-04 11:14 | Pharmacy Report ---
Pharmacy Abx/Gly Intl Consult - Date of Service September 04, 2018 - Scope Pharmacy has been consulted by Dr. Daryl Trujillo to manage glycemic control for this patient as per the Pharmacy & Therapeutics Committee approved dosing protocols. - Subjective The patient is a 83 year old M admitted on 09/04/18 08:37. - Objective Vital Signs (Past 12hrs): Vital Signs Temp Pulse Pulse Resp BP BP Pulse Ox 09/04/18 10:20 36.7 C 59 L 16 172/80 H 100 09/04/18 09:49 36.5 C 63 16 175/71 H 99 09/04/18 09:36 60 17 166/65 H 98 09/04/18 09:34 60 17 157/68 H 100 09/04/18 09:30 61 17 176/72 H 100 09/04/18 09:27 61 13 100 09/04/18 09:26 62 11 L 167/69 H 100 09/04/18 09:25 60 17 100 09/04/18 09:22 60 8 L 167/72 H 98 09/04/18 09:20 36.4 C L 60 62 0 L 173/73 H 167/72 H 99 09/04/18 09:15 60 3 L 166/72 H 99 09/04/18 09:10 60 3 L 175/75 H 99 09/04/18 09:05 60 4 L 173/74 H 99 09/04/18 09:00 60 18 172/79 H 99 09/04/18 08:55 61 3 L 168/76 H 100 09/04/18 08:50 60 13 157/73 H 99 09/04/18 08:47 60 6 L 166/70 H 99 09/04/18 08:45 61 13 99 09/04/18 08:41 62 14 123/67 100 09/04/18 08:40 61 10 L 89 L 09/04/18 08:38 62 8 L 154/64 H 98 09/04/18 08:37 36.1 C L 64 63 16 154/64 H 99 09/04/18 05:40 37.0 C 68 18 175/88 H 95 Accuchecks BSG (last 24hrs): 09/04/18 09/04/18 05:44 09:43 POC Glucose 142 H 221 H HbA1c: Hemoglobin A1c 7.7 % (4.5-5.6) H 08/27/18 14:46 Lab Results (24hrs): Laboratory Results - last 24 hr 09/04/18 09/04/18 05:44 09:43 POC Glucose 142 H 221 H - Risk Factors for Resistance Risk Factors for Antimicrobial Resistance: * Resident in a [facility] or extended-care facility * Hospitalization for 48 hours or more within the past 90 days * Current hospitalization > 5 days * Chronic dialysis within the past 30 days * Immunocompromised (chronic steroid therapy, chemotherapy, immunomodulators) * History of infection with a multidrug-resistant organism: [organism] [site of infection] [date] * Antimicrobial use within the last 90 days [include specific drugs, if known] - Recent Pertinent Medications Recent Pertinent Medications/Risk Factors for Insulin Resist: Outpatient Anti-diabetic Regimen: * [] * A1c = [] % [date] The patient is currently receiving: * Basal insulin: Lantus [] units every [] hours * Correctional Insulin: Novolog Correction per scale ACHS Goal Range: Low [] mg/dL - High [] mg/dL Correction Factor: [] mg/dL/unit * Prandial insulin: Per carb ratio of 1 unit per [] grams CHO consumed * Oral Agents: Risk Factors for Insulin Resistance: * Steroids: * Infection: * Pressors: * IVF: * Recent Surgery * Diet: * Mechanical Ventilation: - Plan ANTIMICROBIAL THERAPY Vancomycin IV * Loading dose: [ ] mg ([ ] mg/kg) * Maintenance dose: [ ] mg IV ([ ] mg/kg) every [ ] hours * Goal trough level for [indication] : [ ] to [ ] mcg/mL * Trough/Random level ordered for [ ]/[ ]/[ ] * A less than traditional dose and/or extended dosing interval has/have been selected due to likelihood of drug accumulation in obese patient/patient with h/o CKD. Piperacillin/Tazobactam * [ ] g bolus administered over 30 minutes, then [ ] g IV extended infusion every 8 hours for CrCl greater than 20 mL/min OR every 12 hours for CrCl 20 mL/min or less and dialysis. * Aggressive dosing selected due to critically ill status/BMI 35 or more/history of cystic fibrosis. Tobramycin/Gentamicin/Amikacin * Patient meets criteria for extended-interval aminoglycoside dosing per the [place] nomogram * A dose of [ ] mg (7 mg/kg) or (15 mg/kg) IV every [ ] hours * Dosage based on adjusted body weight for patients weighing > 120% of ideal body weight. * Random level ordered for 6-14 hours after the start of the infusion to ensure dosing interval is appropriate. Tobramycin/Gentamicin/Amikacin * Patient is not a candidate for extended-interval dosing due to age/CrCl less than 20 mL/min/end stage renal disease/dialysis/fluctuating kidney function/treatment of Enterococcal endocarditis OR Altered pharmacokinetics in the setting of /less than six weeks post- /ascites/significant skinner/cystic fibrosis. * Dose: [ ] mg ([ ] mg/kg) IV every [ ] hours * Dosage based on adjusted body weight for patients weighing > 120% of ideal body weight. * Goal trough level for [indication] : [ ] to [ ] mcg/mL * Goal peak level for [indication] : [ ] to [ ] mcg/mL * Peak and trough level ordered for [ ]/[ ]/[ ] around the [ ] dose. INPATIENT GLYCEMIC CONTROL: * Start IV insulin infusion per [] (moderate/severe) stress protocol * Goal Range [] - [] mg/dl * In the critical care setting, continuous IV insulin infusion has been shown to be the best method for achieving glycemic targets. Oral Agents * Hold outpatient oral diabetes medications. Basal Insulin * Lantus [] units SQ BID Bolus Insulin * NovoLog per scale ACHS or Q6hrs while NPO * Goal Range: Low [] mg/dL - High [] mg/dL * Correction Factor: [] mg/dL/unit * Nutritional / Prandial insulin per carb ratio of 1 unit per [] grams CHO consumed RECOMMENDATIONS FOR DISCHARGE: * Please note that the plan above was derived based on current level of insulin resistance and hospital stress. These recommendations are appropriate for inpatient admission only. Plan of care upon discharge will need to be reassessed to avoid potential outpatient hypo/hyperglycemia. Pharmacy will follow patient and adjust orders on a daily basis. Thank you for allowing us to participate in this patients care.
[2018-09-04] MEDS: MULTIVITAMIN TAB PO SCH (11:32)
[2018-09-04] MEDS: VITAMIN B COMPLEX TAB PO SCH (11:32)
[2018-09-04] MEDS: DOCUSATE SODIUM 100 MG CAP PO SCH ×2 (11:32→20:56)
[2018-09-04] MEDS: HydrALAZINE TAB 50 MG TAB PO SCH ×3 (11:33→22:27)
[2018-09-04] MEDS: TRAMADOL HCL 50 MG TABLET PO PRN ×2 (11:35→19:35)
--- NOTE | 2018-09-04 11:38 | Pharmacy Report ---
Glycemic Control Consultation - Date of Service September 04, 2018 - Scope Scope: Glycemic Pharmacist consulted by Dr Daryl Trujillo on 09/03/18 for glycemic control and to write orders per [facility] inpatient glycemic control protocol - Objective Weight: 82.2 kg Accuchecks BSG (last 24hrs): 09/04/18 09/04/18 05:44 09:43 POC Glucose 142 H 221 H HbA1c: Hemoglobin A1c 7.7 % (4.5-5.6) H 08/27/18 14:46 - Recent Pertinent Medications Outpatient Anti-diabetic Regimen: * Lantus 10 units HS * A1c = 7.7 % 08/27/18 Risk Factors for Insulin Resistance: * Recent Surgery * Diet: T2DM - Assessment & Plan Assessment & Plan: ASSESSMENT: * 83 yo male who underwent right total hip replacement on 09/04/18, POD #0 * Pt did not receive steroids pre-operatively * A1C 7.7% from 08/27/18, maintained only on basal insulin at home * ADA & AACE recommend a goal blood sugar range 140-180 mg/dl for the majority of critically ill & non-critically ill patients. However, more stringent targets may be selected in individual cases. Will utilize more stringent goal of 110-140mg/dl based on patient age & comorbidities. Additionally, tighter glycemic control is warranted to facilitate wound/infection healing. PLAN FOR INPATIENT GLYCEMIC CONTROL: * Basal insulin * Lantus 10 units SQ HS * Bolus insulin * NovoLog per scale ACHS or Q6hrs while NPO * Goal Range: Low 110 mg/dL - High 140 mg/dL * Correction Factor: 30 mg/dL/unit * Nutritional / Prandial insulin per carb ratio of 1 unit per 10 grams CHO consumed * Please note that the plan above was derived based on current level of insulin resistance and hospital stress. These recommendations are appropriate for inpatient admission only. Plan of care upon discharge will need to be reassessed to avoid potential outpatient hypo/hyperglycemia. Thank you.
--- NOTE | 2018-09-04 12:35 | Operative Report ---
DATE OF OPERATION: 09/04/2018 SURGEON: Daryl Trujillo MD CLASSIFICATION OFFICER: EUGENIA Jhaveri PREOPERATIVE DIAGNOSIS: Right hip degenerative joint disease. POSTOPERATIVE DIAGNOSIS: Right hip degenerative joint disease. PROCEDURE PERFORMED: Right uncemented ceramic on highly cross-linked polyethylene total hip arthroplasty. COMPLICATIONS: None. ESTIMATED BLOOD LOSS: 200 mL. FLUID REPLACEMENT: 1400 mL crystalloid fluid replacement. ANESTHESIA: Failed spinal with general anesthesia. SPECIMENS: Right femoral head sent for pathology. OPERATIVE INDICATIONS: The patient is an 83-year-old very active walker, who has had about a 6-month history of markedly increased right hip pain and discomfort. X-rays show advanced hip DJD. He has been treated with limited activities, but has been unable to get back to walking which is important for his health for the past 6 months. He has failed all conservative care. He elected to proceed with total hip arthroplasty. OPERATIVE FINDINGS: Operative findings revealed advanced right hip DJD. Extensive grade 4 change of the femoral head and acetabulum. Not a lot of osteophyte formation. Did have a significant joint effusion. OPERATIVE IMPLANTS: Operative implants consisted of: 1. A Biomet G7 size 56 mm acetabular shell. 2. 6.5 cancellous acetabular screws, one at 35 mm in length and one at 30 mm in length. 3. An apex hole eliminator. 4. Highly cross-linked polyethylene liner with 56 mm outer diameter, 36 mm inner diameter. 5. DePuy Corail size 12 KLA femoral stem. 6. A +5/36 mm ceramic articular ball. OPERATIVE PROCEDURE: The patient was taken to the operating room, identified and placed on the operative table in supine position. All contact areas were appropriately padded. IV antibiotics were provided by anesthesia team. A spinal anesthetic was attempted in the holding area, but unsuccessful. A general anesthetic was therefore implemented. The patient was then placed in the left lateral decubitus position. An axillary roll was placed. Stlberg hip positioner was used for positioning. Right hip and leg were then prepped and draped in usual sterile fashion. A posterolateral approach of the right hip was then performed through a curvilinear incision centered over the greater trochanter. Sharp dissection was carried through subcutaneous tissues down to the level of the IT band and gluteal fascia. The IT band and gluteal fascia were then incised longitudinally in line with skin incision. The underlying greater trochanteric bursa was excised. The piriformis and external rotators were tagged and taken off the posterior aspect of the hip joint capsule. Great care was taken throughout the procedure to protect the sciatic nerve at all times. Posterior capsulotomy was then performed leaving a large flap for later repair. Hip was internally rotated and dislocated. Femoral neck osteotomy cut was made with the final cut about 14 mm above the lesser trochanter. Femoral head was removed and sent for pathology. Attention was then drawn to the acetabulum. The acetabulum labrum was excised. The pulvinar fat was excised. Sequential reaming of the acetabulum was then performed beginning with size 49 progressing up to 55. A 56 mm Biomet G7 acetabular shell was then placed in about 40 degrees of lateral opening and 20-25 degrees of anteversion. Of note, the patient seemed to have a little bit more [place] anteversion of his acetabulum than average. I trial liner was placed. The acetabulum was fixed with two 6.5 cancellous acetabular screws. Attention was then drawn to the femur. The proximal femur was entered with a cookie cutter followed by canal finder. I then broached beginning with a size 8 and progressing up to 12. We got excellent fit at 12. Calcar reamer was used to smoothen off the calcar. I trialed the hip with both standard and the coxa vara stems. I felt that the standard stem maybe lengthening him in order to create appropriate soft tissue tension. Therefore, I used the KLA stem with a little bit more offset. We use a +5/36 mm articular ball which seemed to recreate leg lengths equal. Soft tissue tension was still just a little bit lax, but his hip was fully stable in full extension and external rotation and flexion to 90 degrees, internal rotation over [address] We elected to place these implants. All trial implants were removed. An apex hole eliminator was placed. Highly cross-linked polyethylene liner was placed. A Corail size 12 KLA femoral stem was impacted in position. A +5/36 mm ceramic articular ball was placed and the hip was once again located and found to be stable. Attention was then drawn toward closing. The wound was irrigated with copious amounts of pulsatile lavage solution. I did inject locally with 60 mL of 0.5% Marcaine with epinephrine. The posterior capsule and external rotators were then repaired through drill holes through the posterior trochanter with #2 Ti-Cron suture. The IT band and gluteal fascia were then closed with #1 PDS suture in running fashion. The subcutaneous tissues were then closed in 2 layers with the deep layer #1 Vicryl suture and subcutaneous tissues with #2 Dexon suture in buried interrupted fashion. Skin was closed with skin rachelle. Leg was then cleaned, dried and a sterile dressing of Xeroform, 4 x 4s, ABD pad and foam tape was applied. The patient then brought out of general anesthesia and transferred to the recovery room in stable condition. The patient tolerated the procedure well with no complications. All needle and sponge counts were correct at the end of the operation. I attest to the content of the Intraoperative Record and any orders documented therein. Any exception s are noted below.
[2018-09-04] MEDS: INSULIN ASPART 100 UNITS/ML 3 ML PEN SC SCH ×3 (12:38→21:11)
[2018-09-04] MEDS: ACETAMINOPHEN 500 MG TAB PO SCH ×2 (13:42→21:02)
[2018-09-04] MEDS: CEFAZOLIN 2000MG 2,000 MG/15 ML SYR IV SCH ×2 (14:34→22:27)
[2018-09-04] MEDS ORDERED: TRANEXAMIC ACID 1,000 MG in 0.9 % SODIUM CHLORIDE 100 ML IV SCH (14:34)
--- NOTE | 2018-09-04 16:05 | Progress Note ---
DATE: 09/04/2018 SUBJECTIVE: An 83-year-old gentleman postop from a right hip replacement. He is doing well. He just started having a little bit of discomfort in his leg. Denies any chest pain or shortness of breath. Not feeling dizzy or lightheaded. OBJECTIVE: VITAL SIGNS: Temperature 36.4. Vital signs stable. GENERAL: Physical examination shows a pleasant elderly male. He is sitting up in bed, looks pretty comfortable. LUNGS: Clear to auscultation. HEART: Regular rate and rhythm. ABDOMEN: Soft, nontender, nondistended. EXTREMITIES: Grossly neurovascularly intact except as follows: Examination of the right hip and leg reveals the leg lengths to be equal. Hip is located. Dressing is clean, dry and intact. Thigh is soft and supple. He is neurologically intact. He can dorsiflex and plantarflex his foot appropriately. X-RAYS: X-rays of the right hip from recovery room were reviewed. It shows a right uncemented total hip arthroplasty. Components looked to be in good position. No signs of problems. ASSESSMENT: An 83-year-old gentleman postop from a right hip replacement, doing well. His hip is located. He is neurologically intact. PLAN: 1. DVT prophylaxis including thigh-high TEDs, SCDs, and aspirin twice a day. 2. PT/OT. Weight bear as tolerated. Right total hip protocol. 3. Pain control, doing well with current pain regimen. We will have to be careful to limit narcotics to avoid confusion. 4. IV antibiotics x24 hours. 5. Disposition: He is planning to be discharged to home with some home health once adequately recovered and stable.
[2018-09-04] MEDS ORDERED: INSULIN GLARGINE SOLOSTAR 100 UNITS/ML 3 ML PEN SC SCH (17:00)
[2018-09-04] MEDS: FERROUS GLUCONATE 324 MG TAB PO SCH (17:49)
[2018-09-04] MEDS: ASCORBIC ACID 500 MG TAB PO SCH (17:49)
[2018-09-04] MEDS: METOPROLOL TARTRATE 25 MG TAB PO SCH (20:56)
[2018-09-04] MEDS: SENNA 8.6 MG TAB PO SCH (20:56)
[2018-09-04] MEDS: ASPIRIN 81 MG ECTAB PO SCH (20:57)
[2018-09-04] MEDS: LISINOPRIL 40 MG TAB PO SCH (21:02)
[2018-09-04] MEDS ORDERED: LIDOCAINE 2% JELLY 5 ML TUBE ONE (21:47)
[2018-09-04] MEDS ORDERED: LIDOCAINE 2% JELLY 5 ML TUBE EXT SCH (22:00)
[2018-09-05] MEDS: ACETAMINOPHEN 500 MG TAB PO SCH ×3 (05:20→19:24)
[2018-09-05 06:24] LABS: Basophils # (auto) 0.01 K/uL (0-0.2); Basophils % (auto) 0.1 %; Eosinophils # (auto) 0.07 K/uL (0-0.5); Eosinophils % (auto) 0.8 %; Hematocrit (blood only) 39.4 % (42-52); Hemoglobin 13.2 g/dL (14.0-18.0); Immature Granulocytes # (auto) 0.02 K/uL (0.00-0.02); Immature Granulocytes % (auto) 0.2 %; Lymphocytes # (auto) 0.62 K/uL (1.2-3.4); Lymphocytes % (auto) 7.5 %; Mean Corpuscular Hgb Conc 33.5 g/dL (32-36); Mean Corpuscular Volume 89.7 fL (80-100); Mean Platelet Volume 9.7 fL (7.4-10.4); Monocytes # (auto) 1.05 K/uL (0.11-0.59); Monocytes % (auto) 12.7 %; Neutrophils # (auto) 6.51 K/uL (1.4-6.5); Neutrophils % (auto) 78.7 %; Platelet Count 109 K/uL (130-400); RDW Standard Deviation 42.6 fL (36.4-46.3); Red Blood Count 4.39 M/uL (4.7-6.1); White Blood Count 8.28 K/uL (4.8-10.8)
[2018-09-05 06:44] LABS: BUN Creatinine Ratio 12.8 (10-20); Calcium 8.6 mg/dl (8.5-10.1); Creatinine Clr Calc Pharmacy 35.4 ml/min; Est GFR (African American) 43.8; Est GFR (Non-African American) 37.8; Potassium 4.1 mmol/L (3.5-5.1)
[2018-09-05] MEDS: TRAMADOL HCL 50 MG TABLET PO PRN ×4 (08:01→23:19)
[2018-09-05] MEDS: ASCORBIC ACID 500 MG TAB PO SCH ×2 (08:52→18:15)
[2018-09-05] MEDS: FERROUS GLUCONATE 324 MG TAB PO SCH ×2 (08:52→18:14)
[2018-09-05] MEDS: VITAMIN B COMPLEX TAB PO SCH (08:52)
[2018-09-05] MEDS: ASPIRIN 81 MG ECTAB PO SCH ×2 (08:52→19:24)
[2018-09-05] MEDS: DOCUSATE SODIUM 100 MG CAP PO SCH ×2 (08:52→19:23)
[2018-09-05] MEDS: MULTIVITAMIN TAB PO SCH (08:53)
[2018-09-05] MEDS: HydrALAZINE TAB 50 MG TAB PO SCH ×3 (08:54→19:23)
[2018-09-05] MEDS: INSULIN ASPART 100 UNITS/ML 3 ML PEN SC SCH ×4 (08:56→20:53)
--- NOTE | 2018-09-05 09:11 | Progress Note ---
DATE: 09/05/2018 SUBJECTIVE: An 83-year-old gentleman postop day 1 from right hip replacement. He is doing well. Pain is controlled. No chest pain or shortness of breath. Not feeling dizzy or lightheaded. OBJECTIVE: VITAL SIGNS: Temperature 37.0. Vital signs stable. GENERAL: Physical examination shows a pleasant elderly male. He is lying in bed and he uses his breathing instrument. He looks comfortable. EXTREMITIES: Examination of the right hip reveals dressing to be clean, dry and intact. Leg lengths were equal. Hip is located. Thigh is soft and supple. Dressing is clean, dry, and intact. He is neurologically intact. LABORATORY DATA: Hemoglobin 13.2. Hematocrit 39.4. Electrolytes are stable. He does have a chronically elevated creatinine. ASSESSMENT: An 83-year-old gentleman postop day 1 from right hip replacement, doing well. His hip is located. His pain is controlled. He is neurologically intact. Medically appears pretty stable. PLAN: 1. DVT prophylaxis including thigh-high TEDs, SCDs and aspirin twice a day. 2. PT/OT. Weight bear as tolerated. Right total hip protocol. 3. Pain control, doing well with current pain regimen. 4. Disposition: He is planning to discharge to home with some home health once adequately recovered.
--- NOTE | 2018-09-05 09:54 | Anesthesiology Progress Note ---
Date of Service September 05, 2018 Anesthesia Post Procedure Vital Signs Vital Signs: Temp Pulse Pulse Resp BP Pulse Ox 09/05/18 07:01 37.0 C 59 L 18 116/59 L 92 09/05/18 03:43 36.5 C 62 18 125/67 94 09/04/18 23:04 36.7 C 56 L 18 146/69 H 97 09/04/18 20:54 61 147/71 H 09/04/18 19:36 36.7 C 62 18 136/80 98 09/04/18 15:17 36.6 C 61 16 145/65 H 100 09/04/18 12:50 36.4 C L 63 16 146/74 H 98 09/04/18 11:56 36.3 C L 59 L 16 167/69 H 100 09/04/18 11:04 36.2 C L 58 L 16 174/74 H 100 09/04/18 10:20 36.7 C 59 L 16 172/80 H 100 Pain Intensity Right Hip: Pain Intensity: 2 Notes Mental Status: alert / awake / arousable and participated in evaluation Patient Amnestic to Procedure: Yes Nausea / Vomiting: adequately controlled Pain: adequately controlled Airway Patency, RR, SpO2: stable & adequate BP & HR: stable & adequate Hydration State: stable & adequate Anesthetic Complications: no major complications apparent and Pt Satisfied with anesthetic care
[2018-09-05 17:28] LABS: Appearance Urine Clear (Clear); Bilirubin Urine Negative (Negative); Blood Urine 1+ (Negative); Color Urine Yellow; Glucose Urine UA Trace (Negative); Ketones Urine Negative (Negative); Leukocyte Esterase Urine Negative (Negative); Nitrite Urine Negative (Negative); Protein Urine Negative (Negative); Specific Gravity Urine 1.014 (1.000-1.030); Urobilinogen Urine Negative (Negative)
[2018-09-05 17:39] LABS: Cast Urine Automated 0 /lpf (0-5); Epithelial Cell Urine Auto 0-5 /lpf (0-5)
[2018-09-05 17:40] LABS: Bacteria Urine Automated Negative (Negative); WBC Urine Automated 0 /hpf (0-5)
[2018-09-05] MEDS: SENNA 8.6 MG TAB PO SCH (19:22)
[2018-09-05] MEDS: METOPROLOL TARTRATE 25 MG TAB PO SCH (19:22)
[2018-09-05] MEDS: LISINOPRIL 40 MG TAB PO SCH (19:24)
[2018-09-05] MEDS ORDERED: INSULIN GLARGINE SOLOSTAR 100 UNITS/ML 3 ML PEN SQ SCH (21:00)
[2018-09-06] MEDS: ACETAMINOPHEN 500 MG TAB PO SCH ×2 (05:28→13:39)
[2018-09-06] MEDS: TRAMADOL HCL 50 MG TABLET PO PRN ×2 (07:50→13:38)
[2018-09-06] MEDS: HydrALAZINE TAB 50 MG TAB PO SCH ×2 (07:52→13:39)
[2018-09-06] MEDS: DOCUSATE SODIUM 100 MG CAP PO SCH (08:49)
[2018-09-06] MEDS: MULTIVITAMIN TAB PO SCH (08:49)
[2018-09-06] MEDS: FERROUS GLUCONATE 324 MG TAB PO SCH (08:49)
[2018-09-06] MEDS: VITAMIN B COMPLEX TAB PO SCH (08:50)
[2018-09-06] MEDS: ASCORBIC ACID 500 MG TAB PO SCH (08:50)
[2018-09-06] MEDS: ASPIRIN 81 MG ECTAB PO SCH (08:50)
[2018-09-06] MEDS: INSULIN ASPART 100 UNITS/ML 3 ML PEN SC SCH ×2 (08:52→12:52)
[2018-09-06] MEDS ORDERED: TAMSULOSIN HCL 0.4 MG CAP PO SCH (09:00)
--- NOTE | 2018-09-06 11:13 | Pharmacy Report ---
Glycemic Control Progress Note - Date of Service September 06, 2018 - Scope Glycemic Pharmacist consulted for glycemic control to write orders per [facility] inpatient glycemic control protocol. - Objective Accuchecks BSG(last 24 hours):: 09/05/18 09/05/18 09/05/18 12:05 16:59 20:31 POC Glucose 89 183 H 139 H 09/06/18 08:12 POC Glucose 157 H HbA1c:: Hemoglobin A1c 7.7 % (4.5-5.6) H 08/27/18 14:46 - Recent Pertinent Medications The patient is currently receiving: * Basal insulin: Lantus 10 units every 24 hours in the evening * Correctional Insulin: Novolog Correction per scale ACHS Goal Range: Low 110 mg/dL - High 140 mg/dL Correction Factor: 25 mg/dL/unit * Prandial insulin: Per carb ratio of 1 unit per 7 grams CHO consumed - Outpatient Anti-Diabetic Meds Lantus 10 units HS - Assessment & Plan ASSESSMENT: * See progress note from 09/04/18 for more background info, in short: * Pt receiving SQ basal bolus insulin regimen for hyperglycemia secondary to baseline DM (outpatient regimen on hold) and POD 2 for R hip surgery. * Patient is currently receiving an average of 32 units of insulin per day * 10 units of basal insulin * 22 units of prandial/correctional insulin * BSGs ranging 89 - 198 mg/dl over the past 24hrs * Changes needed to insulin regimen: * AM Fasting BSG = 157 mg/dl. This is slightly above goal range for patient based on inpatient targets and co-morbidities. Will continue home Lantus regimen at this time. * Post-prandial BSGs fluctuate = it appears that the carbohydrate ratio may be appropriate but the correction factor is too aggressive. Loosen CF. * Total daily dose = 30 units. PLAN FOR INPATIENT GLYCEMIC CONTROL: * Continuing Lantus 10 units SQ HS * LOOSENING correction factor to 30 mg/dl/unit * Continuing carb ratio of 1 unit per 7 grams CHO consumed * Continuing goal range of Low 110 mg/dL - High 140 mg/dL RECOMMENDATIONS FOR DISCHARGE: * Patient's HbA1C is slightly uncontrolled. Recommend increasing Lantus slightly upon discharge. * Please note that the plan above was derived based on current level of insulin resistance and hospital stress. These recommendations are appropriate for inpatient admission only. Plan of care upon discharge will need to be reassessed to avoid potential outpatient hypo/hyperglycemia. Thank you.
--- NOTE | 2018-09-06 13:18 | Progress Note ---
DATE: 09/06/2018 SUBJECTIVE: An 83-year-old gentleman postop day 2 from a right hip replacement. He is doing pretty well pain cai. He has been having trouble voiding and they put a catheter back in him last evening. No chest pain or shortness of breath. Not feeling dizzy or lightheaded. OBJECTIVE: VITAL SIGNS: Temperature 36.7. Vital signs stable. PHYSICAL EXAMINATION: GENERAL: Reveals a pleasant elderly male. He is lying in bed, looks reasonably comfortable. EXTREMITIES: Examination of the right leg reveals leg lengths to be equal. Dressing is clean, dry and intact. Thigh is soft and supple. Hip is located. He is neurologically intact. ASSESSMENT: An 83-year-old gentleman postoperative day 2 from right hip replacement, doing pretty well. Apparently therapy has been recommended that he may go to rehabilitation for a little while. He is now interested in pursuing this. PLAN: 1. DVT prophylaxis including thigh-high TEDs, SCDs, and aspirin twice a day. 2. PT/OT. Weight bear as tolerated. Right total hip protocol. 3. Pain controlled, doing well with current pain regimen. 4. Disposition: He was initially planning on going home, but now hopes to go to a rehab. We will have social science research assistant look into this.
--- NOTE | 2018-09-07 17:22 | Discharge Summary ---
ADMITTING PHYSICIAN AND SURGEON: Dr. Daryl Trujillo. ADMITTING DIAGNOSIS: Right hip degenerative joint disease. SURGERY PERFORMED: Right total hip arthroplasty. SECONDARY DIAGNOSES: Hypertension, coronary artery disease, history of a mini stroke, diabetes, skin cancer. CONSULTS: None obtained. HISTORY AND PHYSICAL EXAMINATION: Well documented in the patient's chart. HOSPITAL COURSE: The patient was admitted on for 09/04/2018 underwent total hip arthroplasty, tolerated the procedure well. There were no complications. He was transferred to the PACU postoperatively and later to the orthopedic floor for further care. He was given Ancef for antibiotic prophylaxis, TESS stockings, SCDs and aspirin for DVT prophylaxis. Hemoglobin, hematocrit and vital signs were monitored during his hospital stay and remained stable, did not require any blood transfusions. There were no complications. By postoperative day 2 he was tolerating a regular diet, pain was controlled with oral pain medicine. He was participating in physical therapy. On postop day 2 he was discharged to a rehab facility. He was given printed discharge instructions including new prescriptions for extra strength Tylenol, aspirin and tramadol. Continue his home medicines. Continue physical therapy, weightbearing as tolerated, TESS stockings, total hip precautions. Followup in approximately 2 weeks postoperatively or sooner if there are any problems or concerns.
== END 2018-09-06 14:21 | DRG 470 ==
LOC: ASU 04:59 → 3E 08:37

== ENCOUNTER 2019-06-18 05:02 | Inpatient (IN) ==
--- NOTE | 2019-05-28 15:38 | PAT Medication Instructions ---
Medication Instructions Date of Service May 28, 2019 Home Medications nitroglycerin 0.4 mg SUBLINGUAL UD PRN coenzyme Q10 100 mg PO BID ascorbic acid (vitamin C) 500 mg PO BID multivitamin 1 tab PO HS vitamin B complex-folic acid [B Complex 100] 1 tab PO QAM Lantus Solostar U-100 Insulin 14 unit SUBCUT HS hydralazine 75 mg PO TID lisinopril 40 mg PO HS metoprolol tartrate 25 mg PO HS aspirin 81 mg PO BID Continue as directed nitroglycerin 0.4 mg SUBLINGUAL UD PRN (if needed) STOP taking 2 weeks before surgery (or as soon as possible if surgery is within 2 weeks) coenzyme Q10 100 mg PO BID DO NOT take the morning of surgery ascorbic acid (vitamin C) 500 mg PO BID vitamin B complex-folic acid [B Complex 100] 1 tab PO QAM Take morning of surgery With a small sip of water, OTHERWISE NOTHING TO EAT OR DRINK AFTER MIDNIGHT: hydralazine 75 mg PO TID Take evening before surgery ascorbic acid (vitamin C) 500 mg PO BID multivitamin 1 tab PO HS Lantus Solostar U-100 Insulin 14 unit SUBCUT HS hydralazine 75 mg PO TID lisinopril 40 mg PO HS metoprolol tartrate 25 mg PO HS Other Notes If you have any questions please call us at [phone] or [phone] or [phone] or [phone]
--- NOTE | 2019-05-31 14:15 | Anesthesiology Consultation ---
Date of Service May 31, 2019 Assessment & Plan (1) Encounter for pre-operative examination: - Awaiting review of preop testing (labs). - Awaiting optimization response from cardiology ([facility] Cardiology/Dr. Baird). - Right INGRID: 09/04/18: unsuccessful spinal (2/2 bone). Decision to convert to GA (Grade view 1, Pitts#2, ETT 8.0 at [facility]) - Check BSG AM DOS Chart Review Chart Review: Patient seen in Pre Admission Testing Teaching & Discussion Pre-Anesthesia Teaching/Discussion Notes: Instructed NPO after midnight before surgery,except medications with 15 cc of water. Medication instructions provided according to the PAT guidelines. History Surgery Operation Date: 06/18/19 12:30 Proposed Procedures p Left Total Hip Arthroplasty - Daryl Trujillo MD Height/Weight Height: 5 ft 10 in Weight: 83.6 kg Allergies Allergy/AdvReac Type Severity Reaction Status Date / Time clonidine AdvReac Severe SEVERE Verified 05/28/19 14:00 BRADYCARDIA Medications Home Medications Medication Instructions Recorded Confirmed Last Taken nitroglycerin 0.4 mg SUBLINGUAL UD PRN #0 sub 11/12/11 05/28/19 Unknown coenzyme Q10 100 mg PO BID #0 cap 10/06/15 05/28/19 10/24/18 08:00 ascorbic acid (vitamin C) 500 mg PO BID #0 tab 08/09/16 05/28/19 10/24/18 08:00 multivitamin 1 tab PO HS #0 tab 08/09/16 05/28/19 10/23/18 vitamin B complex-folic acid [B 1 tab PO QAM #0 08/09/16 05/28/19 10/24/18 Complex 100] Lantus Solostar U-100 Insulin 14 unit SUBCUT HS #0 pen 08/16/16 05/28/19 10/23/18 hydralazine 75 mg PO TID #0 tab 08/16/16 05/28/19 10/24/18 14:00 lisinopril 40 mg PO HS #0 tab 08/16/16 05/28/19 10/23/18 metoprolol tartrate 25 mg PO HS 08/25/18 05/28/19 10/23/18 aspirin 81 mg PO BID 10/24/18 05/28/19 10/24/18 08:00 Past Medical History Medical History CAD (coronary artery disease) s/p 3 stents (2012) Cancer BCC Carotid artery stenosis s/p right CEA (2016)/last checked 12/2018 (per vascular office visit note) with LICA 60-69% stenosis, ABIMBOLA without restenosis (monitoring/plan for repeat imaging 1 year) Chronic kidney disease stage III Diabetes mellitus, type 2 IDDM HTN (hypertension) Ischemic cardiomyopathy EF 29% on 08/31/18 LBBB (left bundle branch block) chronic dating back to at least 2017 Myocardial Infarction 2012, 2015 Pacemaker Medtronic, dual-chamber implanted 2015/last checked 03/2019 Retinopathy Sleep apnea no machine TIA (transient ischemic attack) 2017 Exercise / Class Metabolic Activity III < 4 Walking/Shop/Light housework Past Family History Family History Other Family history non-contributory No family history of adverse response to anesthesia Past Surgical History Surgical History History of cardiac cath x2; 3 stents (2012) History of carotid endarterectomy RIGHT 08/20/16 - MAC #3, ETT# 7.5 HiLo Grade 1 History of cataract surgery BILATERAL History of herniorrhaphy UMBILICAL HERNIA REPAIR WITH MESH History of total right hip replacement Right INGRID: 09/04/18: unsuccessful spinal (2/2 bone). Decision to convert to GA (Grade view 1, Pitts#2, ETT 8.0 at [facility]) S/P Mohs surgery for basal cell carcinoma Past Anesthesia History No Hx of Anesthesia Complications and No Family Hx of Anesthesia Complications History of PONV No Hx of PONV and No Hx of Motion Sickness Social History Smoking Status: Former smoker tobacco type: pipe and cigars Do You Dip or Chew Tobacco: No Smoking End Date: QUIT 50 YEARS AGO Hx Alcohol Use: No Hx Substance Use: No substance use type: does not use Review of Systems Patient denies chest pain, shortness of breath, cough, wheezing, palpitations. Physical Exam Vital Signs VITALS BP 136/67 P 60 TEMP 98.9 SP02 94%RA RESP 18 PHYSICAL Full neck and c-spine range of motion. Full TMJ range of motion. TMD 3 finger breaths Mallampati Score 3 Dentition: intact, possible crowns Lungs: clear throughout to auscultation Cardiac: regular rate and rhythm, no murmurs noted Spine: normal Carotid arteries: negative bruit Extremities: no edema Testing Electrocardiogram Date: 08/24/18 Atrial paced rhythm @73bpm with prolonged AV conduction. Nonspecific intraventricular conduction block. Anterolateral infarct, age undetermined. When compared with ECG or 02/01/15, Electronic atrial pacemaker has replaced sinus rhythm. Ventricular rate has increased by 33bpm. Nonspecific intraventricular conduction block has replaced left bundle branch block. Chest X-Ray Date: 08/27/18 The heart is borderline enlarged. There is a left subclavian dual-chamber central venous pacemaker present. There is no failure. There is no focal pulmonary consolidation. There are no pleural effusions. No active disease in the chest. Echocardiogram Date: 08/31/18 EF: 29%. Moderately dilated LV chamber size with normal wall thickness. Severely reduced LV chamber size with normal wall thickness. Severely reduced LV systolic function. There is a large sized apical, inferior, lateral, and posterior wall motion abnormality with akinesis of the segments. The anterior wall and inferior septum are hypokinetic. Grade I diastolic dysfunction. Mild mitral regurgitation. The estimated pulmonary artery systolic pressure is 42mmHg. Compared to last available study, there has been no interval change. Stress Test Date: 12/23/16 Type: nuclear (Lexiscan) Kerri scan nuclear stress test is abnormal with a large fixed perfusion defect of severe intensity encompassing the lateral, inferolateral and inferior wall myocardial vazquez consistent with a large scar in this territory. Normal perfusion to the anterior and septal vazquez is noted. Gated SPECT reveals lateral inferolateral and inferior hypokinesis to akinesis with septal dyskinesis consistent with left bundle branch block. The calculated left ventricular ejection fraction is 33%, but by visual inspection it appears to be worse than this and in the range of 20 to 25%. EKG response to pharmacologic stress is equivocal for excluding ischemia due to the underlying left bundle branch block. 54% MPHR. Other Testing Pacer check: 03/08/19: Medtronic. AP 99.6%. RVP 0.1%. Mode AAIR <->DDDR. Normal dual chamber pacemaker function. Stable pacing and sensing thresholds. Adequate battery reserve.
[2019-05-31 15:44] LABS: Basophils # (auto) 0.04 K/uL (0-0.2); Basophils % (auto) 0.5 %; Eosinophils # (auto) 0.45 K/uL (0-0.5); Hematocrit (blood only) 45.8 % (42-52); Hemoglobin 15.5 g/dL (14.0-18.0); Immature Granulocytes # (auto) 0.01 K/uL (0.00-0.02); Immature Granulocytes % (auto) 0.1 %; Lymphocytes # (auto) 0.93 K/uL (1.2-3.4); Lymphocytes % (auto) 12.4 %; Mean Corpuscular Hemoglobin 29.8 pg (25-34); Mean Corpuscular Hgb Conc 33.8 g/dL (32-36); Mean Corpuscular Volume 88.1 fL (80-100); Mean Platelet Volume 10.5 fL (7.4-10.4); Monocytes # (auto) 0.67 K/uL (0.11-0.59); Neutrophils # (auto) 5.38 K/uL (1.4-6.5); Platelet Count 148 K/uL (130-400); RDW Standard Deviation 41.8 fL (36.4-46.3); White Blood Count 7.48 K/uL (4.8-10.8)
[2019-05-31 15:46] LABS: BUN Creatinine Ratio 20.7 (10-20); C Reactive Protein 0.97 mg/dl (0-0.29); Calcium 9.6 mg/dl (8.5-10.1); Creatinine Clr Calc Pharmacy 32.5 ml/min; Est GFR (Non-African American) 34.5; Potassium 4.6 mmol/L (3.5-5.1)
[2019-05-31 15:51] LABS: Partial Thromboplastin Ratio 0.9; Partial Thromboplastin Time 25.7 Seconds (21.0-31.0); Prothrombin Time 10.6 Seconds (9.0-12.0)
[2019-06-01 06:35] LABS: Estimated Average Glucose 214 mg/dl; Hemoglobin A1C 9.1 % (4.5-5.6)
--- NOTE | 2019-06-12 13:56 | History and Physical Report ---
DATE OF ADMISSION: 06/18/2019 CHIEF COMPLAINT: Left hip pain. HISTORY OF PRESENT ILLNESS: The patient is an 84-year-old gentleman well known to me from recent treatment of his right hip with a total hip arthroplasty in August of last year. He has done quite well from this and was quite limited by his pain. His pain is markedly improved in his right hip and he has been doing more walking and having more and more pain and discomfort in his left hip. He describes groin pain, thigh pain. It is increased with weightbearing activities. That has now become the limiting factor in him for walking. Very happy with his right hip and he would like to have his left hip fixed. Of note, the patient recently saw Dr. Helm for back evaluation and did not think there are any significant back issues. He did see Dr. Kaplan in the past who has treated him conservatively, but he has elected to seek further care here. He is a very avid walker and cannot walk like he liked to. PAST MEDICAL HISTORY: Significant for, 1. Hypertension. 2. Elevated cholesterol. 3. History of mini stroke without sequelae. 4. Coronary artery disease status post VT and stent placement, followed by Dr. Baird. 5. Diabetes x5-7 years. 6. Skin cancer. PAST SURGICAL HISTORY: Previous surgeries include, 1. Pacemaker placement. 2. Cardiac stent placement in [facility]. 3. Mohs surgery. 4. Right total hip replacement done in 09/04/2018. ALLERGIES: None. CURRENT MEDICINES: 1. Insulin. 2. Hydralazine. 3. Tylenol. 4. Lisinopril. 5. Metoprolol XL. 6. Multivitamin. 7. Norvasc. 8. Nitroglycerin. 9. Aspirin. SOCIAL HISTORY: He is an 84-year-old male. He is . He has 5 children. Does not drink. Lives in [place] area. FAMILY HISTORY: Significant for heart disease and diabetes. REVIEW OF SYSTEMS: Significant for several years of diabetes. He does have a significant heart history, but asymptomatic. Denies any chest pain or shortness of breath. No history of DVT or PE. No known bleeding problems. No known clotting disorders. PHYSICAL EXAMINATION: GENERAL: Reveals a healthy pleasant elderly male. Looks to be in good health. HEENT: Benign. NECK: Supple. No lymphadenopathy. LUNGS: Clear to auscultation. HEART: Has a regular rate and rhythm. ABDOMEN: Soft, nontender, nondistended. EXTREMITIES: Grossly neurovascularly intact except as follows: Examination of the left hip revealed the patient walks with use of a cane. He does seem to limp on the left side. Leg lengths appear clinically pretty equal. He has pain with hip motion. He can internally rotate to about neutral. This recreates his pain. He can externally rotate to 25 degrees. He has no knee effusion. Negative straight leg raise. Examination of the right hip reveals a well-healed incision. No pain with hip motion. He is neurologically intact. X-RAYS: X-ray of left hip reviewed. It shows advanced left hip DJD. He has got complete loss of his medial and superior joint space. He has got Cam impingement. The right hip replacement looks to be in good position. ASSESSMENT: An 84-year-old fairly active gentleman status post a right hip replacement 9 months ago, doing well with left hip arthritis. He has now become more limited by his left hip pain and would like to have that fixed. PLAN: We will take him to the Operating Room and do a left total hip replacement. The risks and benefits of this procedure were explained to the patient including but not limited to DVT, PE, , infection, neurological injury, vascular injury, bleeding problem, pain, limited range of motion, stiffness, failure to relieve symptoms, incomplete relief of symptoms, need for further surgery in the future, fracture, leg length inequality, nerve palsy, etc. The patient understands and desires to proceed. His creatinine is elevated, so I have to be careful with NSAIDs. He will hold his lisinopril the morning of surgery and take his metoprolol. We felt he could be discharged to [facility] like he did last time.
[2019-06-18] MEDS ORDERED: CEFAZOLIN 2000MG 2,000 MG/15 ML SYR IV SCH (06:00)
[2019-06-18] MEDS ORDERED: TRANEXAMIC ACID 1,000 MG **IV Pre-op IV SCH (06:00)
[2019-06-18] MEDS ORDERED: LR 60ML/HR IV SCH (06:00)
[2019-06-18] MEDS ORDERED: GABAPENTIN 300 MG CAP PO SCH (06:00)
[2019-06-18] MEDS ORDERED: ACETAMINOPHEN 500 MG TAB PO SCH (06:00)
[2019-06-18] MEDS ORDERED: METOCLOPRAMIDE HCL 10 MG TABLET PO SCH (06:00)
[2019-06-18] MEDS ORDERED: FAMOTIDINE 20 MG TAB PO SCH (06:00)
[2019-06-18] MEDS ORDERED: LR 15ML/HR IV SCH (06:00)
[2019-06-18] MEDS ORDERED: BUPIVACAINE 0.5 % 5 MG/1 ML PF 10ML VIAL ONE (06:23)
[2019-06-18] MEDS ORDERED: MoRPHine SULFATE PF 1 MG/ML 10 ML AMP/VIAL ONE (06:25)
[2019-06-18] MEDS ORDERED: MIDAZOLAM HCL 1 MG/ML 2ML VIAL ONE (06:25)
[2019-06-18] MEDS ORDERED: BACITRACIN INJ 50,000 UNIT VIAL ONE (06:41)
[2019-06-18] MEDS ORDERED: EPINEPHrine INJ 1 MG/ML AMP ONE (06:41)
[2019-06-18] MEDS ORDERED: BUPIVACAINE 0.5 % 5 MG/1 ML MPF 30ML VIAL ONE (06:41)
--- NOTE | 2019-06-18 06:52 | History & Physical Bridge Note ---
Date of Service June 18, 2019 History & Physical Bridge Note I have examined the patient, reviewed the History & Physical and in the interval since the performance of the History & Physical I have noted the following changes of clinical significance: no changes noted
[2019-06-18] MEDS ORDERED: DiphenhydrAMINE HCL 50 MG/ML VIAL IV PRN (06:59)
[2019-06-18] MEDS ORDERED: PROMETHAZINE HCL 6.25 MG in SODIUM CHLORIDE 0.9% 50 ML IV PRN (06:59)
[2019-06-18] MEDS ORDERED: NALOXONE HCL 0.4 MG/1 ML VIAL/CARP IV PRN ×2 (06:59→09:42)
[2019-06-18] MEDS ORDERED: NALBUPHINE HCL INJ 10 MG/ML AMP IV PRN (06:59)
[2019-06-18] MEDS ORDERED: MEPERIDINE HCL 25 MG/ML CARP IV PRN (06:59)
[2019-06-18] MEDS ORDERED: NALOXONE HCL 0.08 MG in SYRINGE 1.8 ML IV PRN (06:59)
[2019-06-18] MEDS ORDERED: NALOXONE HCL 1 MG in SODIUM CHLORIDE 0.9% 1000ML 1,000 ML IV PRN (06:59)
[2019-06-18] MEDS ORDERED: KETOROLAC 30 MG/ML VIAL IV PRN (06:59)
[2019-06-18] MEDS ORDERED: LACTATED RINGER'S 500 ML IV PRN (06:59)
[2019-06-18] MEDS ORDERED: ONDANSETRON INJ 2 MG/ML 2 ML VIAL IV PRN (06:59)
[2019-06-18] MEDS ORDERED: MoRPHine SULFATE PF 1 MG/ML 10 ML AMP/VIAL INT SPINAL ONE (06:59)
[2019-06-18] MEDS ORDERED: ePHEDrine sulfate 50 MG/ML AMP IV PRN (06:59)
[2019-06-18] MEDS ORDERED: DC INTRASPINAL MORPHINE SCH (07:00)
[2019-06-18] MEDS ORDERED: SODIUM CHLORIDE 0.9% 1000ML 1,000 ML IV SCH (07:00)
[2019-06-18] MEDS ORDERED: NO NARCOTICS OR SEDATIVES SCH (07:00)
[2019-06-18] MEDS ORDERED: PHENYLEPHRINE 100MCG/ML 5ML SYR ONE (07:13)
[2019-06-18] MEDS ORDERED: PHENYLEPHRINE HCL 10 MG/ML VIAL ONE (07:22)
[2019-06-18] MEDS ORDERED: KETOROLAC TROMETHAMINE 15 MG/ML VIAL IV PRN (07:45)
--- NOTE | 2019-06-18 08:23 | Post Operative Brief Note ---
PG Immediate Post Op with CF Date of Surgery June 18, 2019 Pre & Post Diagnosis Operation Date: 06/18/19 07:00 Pre-Op Diagnosis: Left Hip Degenerative Joint Disease Post-Op Diagnosis: Left Hip Degenerative Joint Disease I identified the patient and participated in the time-out.: Yes Procedure Operation Date: 06/18/19 07:00 Actual Procedures p Left Total Hip Arthroplasty(Left) - Daryl Trujillo MD Surgeon Daryl Trujillo MD Lead Caregiver Bj, PAC Estimated Blood Loss 200 Findings Consistent with Post-Op Diagnosis Fluids 500 cc Specimens Specimen Description: Permanent Specimen: A) Left Femoral Head Anesthesia Type Spinal MAC Complications none Disposition Accompanied Patient To Recovery: Yes Disposition: Recovery Room
--- NOTE | 2019-06-18 09:17 | XRay Report ---
XR hip 1V LT w pelvis CLINICAL HISTORY: IN PACU - A/P PELVIS and LATERAL HIP COMPARISON: 09/04/2018 DISCUSSION: Anatomic alignment posttotal left hip arthroplasty. Expected soft tissue postoperative ch patricio IMPRESSION: Anatomic alignment posttotal left hip arthroplasty. ACT 112: Negative or not required by law. The above report was generated using voice recognition software. It may contain grammatical, syntax or spelling errors. Electronically signed by: Aaron Platt M.D. 06/18/2019 9:16 AM
--- NOTE | 2019-06-18 09:24 | Anesthesiology Progress Note ---
Date of Service June 18, 2019 Anesthesia Post Procedure Vital Signs Vital Signs: Temp Pulse Pulse Resp BP Pulse Ox 06/18/19 09:15 36.3 C L 65 18 113/48 L 99 06/18/19 09:05 67 17 127/82 100 06/18/19 08:55 60 14 127/51 L 97 06/18/19 08:45 61 18 135/89 100 06/18/19 08:35 61 16 152/60 H 100 06/18/19 08:25 36.1 C L 63 12 112/55 L 100 06/18/19 05:48 36.9 C 62 20 174/71 H 99 Transfer of Care Handoff Completed per policy Notes Mental Status: alert / awake / arousable Patient Amnestic to Procedure: Yes Nausea / Vomiting: adequately controlled Pain: adequately controlled Airway Patency, RR, SpO2: stable & adequate BP & HR: stable & adequate Hydration State: stable & adequate Neuraxial Anesthesia: was administered and sensory block is resolving Anesthetic Complications: no major complications apparent
[2019-06-18] MEDS ORDERED: TAMSULOSIN HCL 0.4 MG CAP PO PRN (09:42)
[2019-06-18] MEDS ORDERED: NO NSAIDS SCH (09:42)
[2019-06-18] MEDS ORDERED: GLUCOSE 40% GEL 15 GM TUBE PO PRN (09:42)
[2019-06-18] MEDS ORDERED: DEXTROSE 50% 50 ML SYRINGE IV PRN (09:42)
[2019-06-18] MEDS ORDERED: CARBOHYDRATES FOR HYPOGLYCEMIA PO PRN (09:42)
[2019-06-18] MEDS ORDERED: GLUCAGON FOR INJ 1 MG VIAL SQ PRN (09:42)
[2019-06-18] MEDS ORDERED: NON-FORMULARY MEDICATION (Coenzyme Q10 100 MG) PO SCH (09:42)
[2019-06-18] MEDS ORDERED: ALUMINUM/MAGNESIUM SUSP 30 ML UDC PO PRN (09:42)
[2019-06-18] MEDS ORDERED: NITROGLYCERIN SL 0.4 MG/TAB TAB SL PRN (09:42)
[2019-06-18] MEDS ORDERED: bisacodyL 10 MG SUPP PR PRN (09:42)
[2019-06-18] MEDS ORDERED: MAGNESIUM HYDROXIDE SUSP 30 ML UDC PO PRN (09:42)
[2019-06-18] MEDS ORDERED: GLUCOSE 10 TABS/TUBE PO PRN (09:42)
[2019-06-18] MEDS ORDERED: MULTIVITAMIN TAB PO SCH (09:42)
[2019-06-18] MEDS ORDERED: PHARMACY GLYCEMIC MGMT CONSULT PRN (09:54)
[2019-06-18] MEDS: SODIUM CHLORIDE 0.9% 1000ML 1,000 ML IV SCH ×2 (10:19→20:10)
[2019-06-18] MEDS: DOCUSATE SODIUM 100 MG CAP PO SCH ×2 (10:32→20:17)
[2019-06-18] MEDS: ASPIRIN 81 MG ECTAB PO SCH ×2 (10:32→21:24)
[2019-06-18] MEDS: INSULIN ASPART 100 UNITS/ML 3 ML PEN SC SCH ×4 (10:34→20:50)
--- NOTE | 2019-06-18 10:37 | Pharmacy Report ---
Glycemic Control Consultation - Date of Service June 18, 2019 - Scope Scope: Glycemic Pharmacist consulted by Dr Trujillo on 06/18 for glycemic control and to write orders per [facility] inpatient glycemic control protocol - Objective Weight: 81.3 kg Accuchecks BSG (last 24hrs): 06/18/19 06/18/19 06/18/19 05:32 08:30 09:59 POC Glucose 141 H 163 H 170 H HbA1c: Hemoglobin A1c 9.1 % (4.5-5.6) H 05/31/19 14:52 - Recent Pertinent Medications Outpatient Anti-diabetic Regimen: * Lantus 14 units HS (per outside records, noncompliance with dosing / ordered outpatient as 10 units daily per physician notes) * A1c = 9.1% date Risk Factors for Insulin Resistance: * Recent Surgery: POD 0 * Diet: T2DM - Assessment & Plan Assessment & Plan: ASSESSMENT: * 84 year old male now s/p hip arthroplasty. POD 0 today. Type 2 diabetic managed only on Lantus at home. Outpatient medical clearance notes Lantus dosing 10 units daily (patient taking 14 units daily). Will add a scale for Lantus tonight in case po intake not adequate * Patient with some nausea this morning, but now eating breakfast this morning per nurse / will utilize basal/bolus dosing postop for glycemic control PLAN FOR INPATIENT GLYCEMIC CONTROL: * Basal insulin * Lantus 10 units for BSG less than 160 * Lantus 14 units for BSG 160 or greater * Bolus insulin * NovoLog per scale ACHS or Q6hrs while NPO * Goal Range: Low 120 mg/dL - High 160 mg/dL * Correction Factor: 30 mg/dL/unit * Nutritional / Prandial insulin per carb ratio of 1 unit per 8 grams CHO consumed * Please note that the plan above was derived based on current level of insulin resistance and hospital stress. These recommendations are appropriate for inpatient admission only. Plan of care upon discharge will need to be reassessed to avoid potential outpatient hypo/hyperglycemia. Thank you.
[2019-06-18] MEDS: ASCORBIC ACID 500 MG TAB PO SCH ×2 (10:47→20:20)
--- NOTE | 2019-06-18 11:36 | Cardiology Consultation ---
Date of Consultation June 18, 2019 Assessment & Plan (1) Degenerative joint disease of left hip: Patient clinically stable post operatively usual outpatient medications have been resumed and will need to be continued given labile blood pressures in the past will follow patient hospital (2) CAD (coronary artery disease): (3) Ischemic cardiomyopathy: (4) SSS (sick sinus syndrome): History of Present Illness Reason for Consultation: Postop hip replacement, ischemic cardiomyopathy Requesting Physician: Dr. Trujillo Attending Physician: Daryl Trujillo MD History of Present Illness Patient is an 84-year-old male followed by Dr. Aurelio Baird from cardiac standpoint please refer to outpatient notes on chart. His cardiac history is notable for ischemic cardiomyopathy with prior coronary intervention, stable class I 2 angina pectoris, stable compensated congestive heart failure, sick sinus syndrome status post pacemaker insertion. Patient's been on stable and appropriate medical therapies. Today underwent hip replacement uneventfully. He is a seen and examined postoperatively. He notes no complaints currently no chest pain shortness of breath orthopnea. Had mild nausea postoperatively. Took usual medications last evening without difficulty. No fevers chills unexplained infections. Overall is been stable and doing well and currently comfortable postoperatively Allergies Allergy/AdvReac Type Severity Reaction Status Date / Time clonidine AdvReac Severe SEVERE Verified 06/18/19 05:45 BRADYCARDIA Home Medications Home Medications Medication Instructions Recorded Confirmed Type nitroglycerin 0.4 mg SUBLINGUAL UD PRN #0 sub 11/12/11 05/28/19 History coenzyme Q10 100 mg PO BID #0 cap 10/06/15 06/18/19 History ascorbic acid (vitamin C) 500 mg PO BID #0 tab 08/09/16 06/18/19 History multivitamin 1 tab PO HS #0 tab 08/09/16 06/18/19 History vitamin B complex-folic acid [B 1 tab PO QAM #0 08/09/16 06/18/19 History Complex 100] Lantus Solostar U-100 Insulin 14 unit SUBCUT HS #0 pen 08/16/16 06/18/19 History hydralazine 75 mg PO TID #0 tab 08/16/16 06/18/19 History lisinopril 40 mg PO HS #0 tab 08/16/16 06/18/19 History metoprolol tartrate 25 mg PO HS 08/25/18 06/18/19 History aspirin 81 mg PO BID 10/24/18 06/18/19 History Patient History Medical History CAD (coronary artery disease) s/p 3 stents (2012) Cancer BCC Carotid artery stenosis s/p right CEA (2016)/last checked 12/2018 (per vascular office visit note) with LICA 60-69% stenosis, ABIMBOLA without restenosis (monitoring/plan for repeat imaging 1 year) Chronic kidney disease stage III Diabetes mellitus, type 2 IDDM HTN (hypertension) Ischemic cardiomyopathy EF 29% on 08/31/18 LBBB (left bundle branch block) chronic dating back to at least 2016 Myocardial Infarction 2012, 2015 Pacemaker Medtronic, dual-chamber implanted 2015/last checked 03/2019 Retinopathy Sleep apnea no machine TIA (transient ischemic attack) 2016 Surgical History History of cardiac cath x2; 3 stents (2012) History of carotid endarterectomy RIGHT 08/20/16 - MAC #3, ETT# 7.5 HiLo Grade 1 History of cataract surgery BILATERAL History of herniorrhaphy UMBILICAL HERNIA REPAIR WITH MESH History of total right hip replacement Right INGRID: 09/04/18: unsuccessful spinal (2/2 bone). 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: No Beliefs That Will Affect Care: None marital status: Current Living Situation: Spouse Other Information That Helps Us Care for You: No Feels Safe at Home: Yes Safety Concerns: Feels Safe At This Time Smoking Status: Former smoker Tobacco Type: pipe and cigars ; Do You Dip or Chew Tobacco: No ; Smoking End Date: QUIT 50 YEARS AGO ; Second Hand Exposure: No ; Tobacco Cessation Education Requested by Patient: No Hx Alcohol Use: No Hx Substance Use: No Review of Systems Review of Systems: All systems reviewed & are unremarkable except as noted in HPI & below Physical Exam Constitutional: WD/WN, vitals as above Eyes: PERRL, conjunctivae normal, anicteric sclerae ENMT: external ear and nose normal, oropharynx normal Neck: trachea midline, no thyromegaly Carotid enterectomy scar present Respiratory: normal respiratory effort, lungs clear to auscultation Cardiovascular: Rate/Rhythm: regular rate and regular rhythm Heart Sounds: normal S1, normal S2 and + murmur (Grade 1-2 or 6 systolic, no diastolic) Vessels: + carotid bruit; no JVD Extremities: no edema Chest (Breasts): Chest: + pacemaker (Present without tenderness) Gastrointestinal (Abdomen): normal bowel sounds, soft, nontender, no hepatosplenomegaly Skin: Surgical incision bandaged without drainage Results & Data Vital Signs (Past 12 Hours) Vital Signs Temp Pulse Pulse Resp BP Pulse Ox Pulse Ox 06/18/19 10:39 61 16 150/65 H 97 06/18/19 10:07 55 L 16 137/52 L 99 06/18/19 09:35 36.4 C L 56 L 18 145/55 H 93 93 06/18/19 09:15 36.3 C L 65 18 113/48 L 99 06/18/19 09:05 67 17 127/82 100 06/18/19 08:55 60 14 127/51 L 97 06/18/19 08:45 61 18 135/89 100 06/18/19 08:35 61 16 152/60 H 100 06/18/19 08:25 36.1 C L 63 12 112/55 L 100 06/18/19 05:48 36.9 C 62 20 174/71 H 99 Laboratory Results Laboratory Results - last 24 hr 06/18/19 06/18/19 06/18/19 05:32 08:30 09:59 POC Glucose 141 H 163 H 170 H
[2019-06-18] MEDS: ACETAMINOPHEN 500 MG TAB PO SCH ×2 (13:57→21:25)
[2019-06-18] MEDS: CEFAZOLIN 2000MG 2,000 MG/15 ML SYR IV SCH ×2 (15:34→22:49)
--- NOTE | 2019-06-18 18:00 | Operative Report ---
Post Operative Report Pre & Post Diagnosis Operation Date: 06/18/19 07:00 Pre-Op Diagnosis: Left Hip Degenerative Joint Disease Post-Op Diagnosis: Left Hip Degenerative Joint Disease I identified the patient and participated in the time-out.: Yes Procedure Operation Date: 06/18/19 07:00 Actual Procedures p Left Total Hip Arthroplasty(Left) - Daryl Trujillo MD Surgeon Daryl Trujillo MD Director Of [employer] Bj, PAC Estimated Blood Loss 200 Findings Consistent with Post-Op Diagnosis Operative findings revealed advanced left hip DJD. He had grade 4 [id number] disease of the femoral head and acetabulum. It a very small anterior acetabular osteophyte and more significant osteophytes around the femoral head. He had a moderate-sized joint effusion. Fluids 500 cc Specimens Left femoral head sent for pathology. Drains None. Anesthesia Type Spinal MAC Complications none Disposition Accompanied Patient To Recovery: Yes Disposition: Recovery Room Indications Patient is a 84-year-old fairly active gentleman with multiple medical comorbidities had a several year history of increasing of bilateral hip pain discomfort that started to really limit his activities. He underwent a right hip replacement about 9 months ago is done well from this. He continued be limited by left hip pain discomfort. He failed all conservative care. He is medically optimized and decided to proceed with total hip arthroplasty on the left side. Description of Procedure Operative implants consisted of: 1. Biomet G7 size 56 mm acetabular shell. 2. 6.5 cancellus acetabular screws were 35 mm length and 125 mm length. 3. An apex hole eliminator. 4. Highly cross-linked polyethylene liner with a 56 mm outer diameter and 36 mm diameter. 5. Depuy Corail size 12 KLA femoral stem. 6. +5/36 mm ceramic articular ball. Patient was taken to the operating room identified and placed on the operating room table in supine position. All contact areas were properly padded. IV antibiotics were provided by the anesthesia team. A spinal anesthetic had been implemented in the holding area. White catheter was placed in sterile fashion. Patient then placed in the right lateral decubitus position. An axillary roll was placed. A Stulberg hip positioner was used for positioning. The left hip and leg were then prepped and draped in usual sterile fashion. A posterior lateral approach to the left hip was then performed through a curvilinear incision centered over the greater trochanter. Sharp dissection was cut through subcutaneous tissue down below the IT band gluteal fascia the IT band gluteal fascia were incised longitudinally in line with skin incision. The underlying greater bursa was excised. The piriformis and external rotators were tagged and taken off the posterior aspect of the hip joint capsule. Great care was taken throughout the procedure to protect the sciatic nerve at all times. Posterior capsulotomy was then performed leaving a large flap for later repair. Hip was internally rotated and dislocated. Femoral neck osteotomy cut was made with Final Cut about 15 cm above the lesser trochanter. Femoral head was removed and sent for pathology P the femur was retracted anteriorly. Attention drawn the acetabulum. The acetabular labrum was excised. Pulmonary fat was excised. Sequential reaming the acetabulum was then performed beginning with size 47 and progressing up to 55. A 56 mm Biomet G7 acetabular shell was then placed in about 40 degrees lateral opening and 20 degrees of anteversion. The small anterior osteophyte was removed. The acetabulum was fixed with 2 screws. A trial liner was placed. Attention drawn the femur. The proximal femur was entered with a cookie-cutter followed by canal finder. Then broached begin the size 8 and progressing up to 12 we got excellent fit with a 12. Calcar reamer was used smooth and off the calcar. I then trialed the hip and the +5 articular ball seem to create soft tissue tension appropriately, was fully stable and extension and external rotation and flexion and internal rotation over 60 degrees and leg lengths seem stable and equal. We elect to place these implants. All trial implants were removed. An apex hole eliminator was placed. A highly cross-linked polyethylene liner was placed. A size 12 KLA femoral stem was impacted in position followed by a +5/36 mm ceramic articular ball. Hip was located once again felt found to be stable. Attention drawn toward closing. Breath wounds irrigated copious pulsatile lavage solution. I did inject locally with 60 cc of half percent Marcaine with epinephrine. The posterior capsule and external rotators were then repaired through drill holes in the posterior trochanter with #2 Tycron suture. The IT band gluteal fascia then closed with #1 PDS suture in running fashion with subcutaneous tissues then closed with 2 layers with deep layer #1 Vicryl suture and subcutaneous tissues with 2-0 Dexon suture in a buried interrupted fashion. Skin was closed skin rachelle. Legs then cleaned dried a sterile dressing composed of Xeroform, 4 x 4's, sterile ABD pad and foam tape was applied. Patient transferred to the recovery room in stable condition. The patient tolerated the procedure well no complications. I attest to the content of the Intraoperative Record and any orders documented therein. Any exceptions are noted below.
[2019-06-18] MEDS: FERROUS GLUCONATE 324 MG TAB PO SCH (18:27)
[2019-06-18] MEDS: MULTIVITAMIN TAB PO SCH (20:18)
[2019-06-18] MEDS: SENNA 8.6 MG TAB PO SCH (20:18)
[2019-06-18] MEDS: METOPROLOL TARTRATE 25 MG TAB PO SCH (20:19)
[2019-06-18] MEDS: lisinopriL 40 MG TAB PO SCH (20:19)
[2019-06-18] MEDS: INSULIN GLARGINE SOLOSTAR 100 UNITS/ML 3 ML PEN SQ SCH (20:52)
[2019-06-18] MEDS ORDERED: INSULIN GLARGINE SOLOSTAR 100 UNITS/ML 3 ML PEN SQ SCH (21:00)
[2019-06-19] MEDS ORDERED: METOCLOPRAMIDE HCL INJ 5 MG/ML 2 ML VIAL IV PRN (01:05)
[2019-06-19] MEDS ORDERED: ONDANSETRON INJ 2 MG/ML 2 ML VIAL IV PRN (01:05)
[2019-06-19] MEDS ORDERED: HYDROmorphone INJ 0.5 MG/0.5 ML SYR IV PRN (01:05)
[2019-06-19] MEDS: SODIUM CHLORIDE 0.9% 1000ML 1,000 ML IV SCH (05:42)
[2019-06-19] MEDS: ACETAMINOPHEN 500 MG TAB PO SCH ×3 (05:43→21:32)
[2019-06-19 06:43] LABS: Basophils # (auto) 0.03 K/uL (0-0.2); Basophils % (auto) 0.5 %; Eosinophils # (auto) 0.11 K/uL (0-0.5); Eosinophils % (auto) 1.7 %; Hematocrit (blood only) 33.9 % (42-52); Hemoglobin 11.2 g/dL (14.0-18.0); Lymphocytes # (auto) 0.76 K/uL (1.2-3.4); Mean Corpuscular Hemoglobin 29.7 pg (25-34); Mean Corpuscular Volume 89.9 fL (80-100); Mean Platelet Volume 10.4 fL (7.4-10.4); Monocytes # (auto) 0.95 K/uL (0.11-0.59); Neutrophils # (auto) 4.47 K/uL (1.4-6.5); Neutrophils % (auto) 70.8 %; Platelet Count 116 K/uL (130-400); RDW Coefficient of Variation 13.5 % (11.5-14.5); RDW Standard Deviation 44.2 fL (36.4-46.3); Red Blood Count 3.77 M/uL (4.7-6.1); White Blood Count 6.32 K/uL (4.8-10.8)
[2019-06-19 07:16] LABS: BUN Creatinine Ratio 19.3 (10-20); Creatinine Clr Calc Pharmacy 36.6 ml/min; Est GFR (African American) 46.2; Est GFR (Non-African American) 39.9; Potassium 3.9 mmol/L (3.5-5.1)
[2019-06-19] MEDS: FERROUS GLUCONATE 324 MG TAB PO SCH ×2 (09:31→17:49)
--- NOTE | 2019-06-19 09:31 | Progress Note ---
DATE: 06/19/2019 SUBJECTIVE: An 84-year-old gentleman now postop day 1 from a left hip replacement. He is doing well. He reports minimal pain. No chest pain or shortness of breath. Not feeling dizzy or lightheaded. OBJECTIVE: VITAL SIGNS: Temperature 37.1. Vital signs stable. GENERAL: Pleasant elderly male. He is sitting up in his bedside chair eating breakfast. He looks completely comfortable. EXTREMITIES: Examination of the left hip and leg reveals the leg lengths to be equal. Dressing is clean, dry and intact. Thigh is soft and supple. He is neurologically intact. Hip is located. He can dorsiflex and plantarflex his foot appropriately. LABORATORY DATA: Hemoglobin 11.2. Hematocrit 33.9. Electrolytes are stable. He has had a chronically elevated creatinine, but he has at baseline. ASSESSMENT: An 84-year-old gentleman postop day 1 from a left hip replacement, doing well. He has got multiple medical comorbidities including significant cardiomyopathy and chronic renal insufficiency. His pain is controlled. Hip is located. He seems pretty euvolemic. PLAN: 1. DVT prophylaxis including thigh-high TEDs, SCDs, and aspirin twice a day. 2. PT/OT. He can weightbear as tolerated in the left hip. 3. Pain control, doing okay with current pain regimen. We are going to try and limit pain meds to avoid confusion and side effects. 4. Cardiology management as per cardiology. 5. Disposition: He is hoping to be discharged to [facility] for a brief rehab stay. Social service is working on that.
[2019-06-19] MEDS: DOCUSATE SODIUM 100 MG CAP PO SCH ×2 (09:32→20:24)
[2019-06-19] MEDS: ASCORBIC ACID 500 MG TAB PO SCH ×2 (09:32→20:26)
[2019-06-19] MEDS: INSULIN ASPART 100 UNITS/ML 3 ML PEN SC SCH ×4 (09:35→21:34)
[2019-06-19] MEDS: TRAMADOL HCL 50 MG TABLET PO PRN ×2 (10:27→20:22)
[2019-06-19] MEDS: VITAMIN B COMPLEX TAB PO SCH (11:09)
[2019-06-19] MEDS: ASPIRIN 81 MG ECTAB PO SCH ×2 (11:09→20:24)
--- NOTE | 2019-06-19 13:39 | Cardiology Progress Note ---
Date of Service June 19, 2019 Assessment & Plan (1) Degenerative joint disease of left hip: Patient clinically stable post operatively and on usual medications would continue all as ordered (2) CAD (coronary artery disease): (3) Ischemic cardiomyopathy: (4) SSS (sick sinus syndrome): Subjective Patient seen and examined, sitting out of bed in chair. No complaints today tolerated surgery very well yesterday and with minimal pain today. Blood pressures well controlled and tolerating current medication Physical Exam Constitutional: WD/WN, vitals as above Eyes: PERRL, conjunctivae normal, anicteric sclerae ENMT: external ear and nose normal, oropharynx normal Neck: trachea midline, no thyromegaly Respiratory: normal respiratory effort, lungs clear to auscultation Cardiovascular: Rate/Rhythm: regular rate and regular rhythm Heart Sounds: normal S1, normal S2 and + murmur (Grade 1-2 or 6 systolic, no diastolic) Vessels: + carotid bruit; no JVD Extremities: no edema Chest (Breasts): Chest: + pacemaker (Present without tenderness) Gastrointestinal (Abdomen): normal bowel sounds, soft, nontender, no hepatosplenomegaly Skin: Surgical incision intact Results & Data Vital Signs (Past 12 Hours) Vital Signs Temp Pulse Pulse Resp BP Pulse Ox 06/19/19 12:00 36.8 C 64 16 102/58 L 97 06/19/19 07:30 37.1 C 60 18 131/61 98 06/19/19 03:11 36.2 C L 63 16 124/68 95 Laboratory Results Laboratory Results - last 24 hr 06/18/19 06/18/19 06/19/19 17:12 20:50 05:50 WBC 6.32 RBC 3.77 L Hgb 11.2 L Hct 33.9 L MCV 89.9 MCH 29.7 MCHC 33.0 RDW Std Deviation 44.2 RDW Coeff of Anderson 13.5 Plt Count 116 L MPV 10.4 Immature Gran % (Auto) 0.0 Neut % (Auto) 70.8 Lymph % (Auto) 12.0 Chilton % (Auto) 15.0 Eos % (Auto) 1.7 Baso % (Auto) 0.5 Immature Gran # (Auto) 0.00 Neut # (Auto) 4.47 Lymph # (Auto) 0.76 L Chilton # (Auto) 0.95 H Eos # (Auto) 0.11 Baso # (Auto) 0.03 Sodium Potassium Chloride Carbon Dioxide Anion Gap BUN Creatinine Est Cr Clr Drug Dosing Est GFR ( Amer) Est GFR (Non-Af Amer) BUN/Creatinine Ratio Glucose POC Glucose 123 H 199 H Calcium 06/19/19 06/19/19 06/19/19 05:50 08:01 12:26 WBC RBC Hgb Hct MCV MCH MCHC RDW Std Deviation RDW Coeff of Anderson Plt Count MPV Immature Gran % (Auto) Neut % (Auto) Lymph % (Auto) Chilton % (Auto) Eos % (Auto) Baso % (Auto) Immature Gran # (Auto) Neut # (Auto) Lymph # (Auto) Chilton # (Auto) Eos # (Auto) Baso # (Auto) Sodium 139 Potassium 3.9 Chloride 107 Carbon Dioxide 28 Anion Gap 4.0 BUN 31 H Creatinine 1.58 H Est Cr Clr Drug Dosing 36.6 Est GFR ( Amer) 46.2 Est GFR (Non-Af Amer) 39.9 BUN/Creatinine Ratio 19.3 Glucose 131 H POC Glucose 125 H 72 Calcium 8.0 L
[2019-06-19] MEDS: SENNA 8.6 MG TAB PO SCH (20:25)
[2019-06-19] MEDS: METOPROLOL TARTRATE 25 MG TAB PO SCH (20:26)
[2019-06-19] MEDS: MULTIVITAMIN TAB PO SCH (20:27)
[2019-06-19] MEDS: lisinopriL 40 MG TAB PO SCH (20:27)
[2019-06-19] MEDS: INSULIN GLARGINE SOLOSTAR 100 UNITS/ML 3 ML PEN SQ SCH (21:35)
[2019-06-20] MEDS: TRAMADOL HCL 50 MG TABLET PO PRN (03:54)
[2019-06-20] MEDS: ACETAMINOPHEN 500 MG TAB PO SCH ×2 (06:06→13:33)
[2019-06-20] MEDS: DOCUSATE SODIUM 100 MG CAP PO SCH (08:56)
[2019-06-20] MEDS: ASCORBIC ACID 500 MG TAB PO SCH (08:56)
[2019-06-20] MEDS: FERROUS GLUCONATE 324 MG TAB PO SCH (08:57)
[2019-06-20] MEDS: ASPIRIN 81 MG ECTAB PO SCH (08:57)
[2019-06-20] MEDS: VITAMIN B COMPLEX TAB PO SCH (08:57)
[2019-06-20] MEDS: INSULIN ASPART 100 UNITS/ML 3 ML PEN SC SCH ×2 (08:58→12:55)
--- NOTE | 2019-06-20 11:46 | Progress Note ---
DATE: 06/20/2019 SUBJECTIVE: An 84-year-old gentleman postop day 2 from left hip replacement. He is doing pretty well. Pain has been controlled. Therapy has gone well. He is doing okay with pain medicines. No chest pain or shortness of breath. Not feeling dizzy or lightheaded. OBJECTIVE: VITAL SIGNS: Temperature 36.8. Vital signs stable. GENERAL: Shows a pleasant elderly male. I had to wake him this morning. EXTREMITIES: Examination of the left hip reveals the leg lengths to be equal. His dressing is clean, dry and intact. Thigh is soft and supple. He is neurologically intact. ASSESSMENT: An 84-year-old gentleman postop day 2 from a left hip replacement, doing quite well. His pain is controlled. Hip is located. He is neurologically intact. PLAN: 1. DVT prophylaxis including thigh-high TEDs, SCDs and aspirin twice a day. 2. PT/OT. He can weightbear as tolerated. Left total hip protocol. 3. Pain control, doing pretty well with current pain regimen. 4. Disposition. We are hoping to discharge him to [facility]. We are just waiting availability.
[2019-06-20] MEDS ORDERED: HydrALAZINE TAB 50 MG TAB PO SCH (14:00)
--- NOTE | 2019-06-21 20:08 | Discharge Summary ---
ADMITTING PHYSICIAN AND SURGEON: Dr. Daryl Trujillo. ADMITTING DIAGNOSIS: Left hip degenerative joint disease. SURGERY PERFORMED: Left total hip arthroplasty. SECONDARY DIAGNOSES: Hypertension, elevated cholesterol, history of mini strokes, coronary artery disease, diabetes, skin cancer. CONSULTS: Dr. Baird, cardiology, for postoperative cardiac management. HISTORY AND PHYSICAL EXAMINATION: Well-documented in the patient's chart. HOSPITAL COURSE: The patient was admitted on 06/18/2019, underwent total hip arthroplasty, tolerated the procedure well. There were no complications. He was transferred to the PACU postoperatively and later to the orthopedic floor for further care. He was given Ancef for antibiotic prophylaxis, TESS stockings, SCDs and aspirin for DVT prophylaxis. Hemoglobin, hematocrit and vital signs were monitored during his hospital stay and remained stable, did not require any blood transfusions. There were no complications. He was followed by the cardiology service throughout his hospital stay. By postoperative day 2, he was tolerating a diabetic diet. Pain was controlled with oral pain medicine. He was participating in physical therapy. On postop day 2, he was transferred to a rehab facility. He was given discharge instructions as well as new prescriptions for extra strength Tylenol and tramadol. Continue his home medicines. Continue physical therapy, weightbearing as tolerated, TESS stockings, total hip precautions. Follow up approximately 2 weeks postoperatively or sooner if there are any problems or concerns.
== END 2019-06-20 13:40 | DRG 470 ==
LOC: ASU 05:02 → 3E 09:36

== ENCOUNTER 2022-04-29 14:02 | Inpatient (IN) ==
--- NOTE | 2022-04-29 15:37 | XRay Report ---
XR chest 1V portable HISTORY: Shortness of breath. COMPARISON: Chest 08/27/2018. FINDINGS: Interval development of a large left pleural effusion. The heart is mildly enlarged. This r emains unchanged. There is a left-sided dual-chamber pacemaker. Small focal density at the right lung base. No pneumothorax. Left lung densities favor compressive atelectasis from the large left pleural effusion. No evidence for pulmonary edema. IMPRESSION: 1. Interval development of a large left pleural effusion. 2. A small right basilar density is nonspecific but may represent atelectasis. ACT 112: Negative or not required by law. Electronically signed by: Arcadio Blackmon M.D. 04/29/2022 3:36 PM
[2022-04-29 16:45] LABS: Basophils # (auto) 0.03 K/uL (0-0.2); Basophils % (auto) 0.4 %; Eosinophils # (auto) 0.01 K/uL (0-0.50); Eosinophils % (auto) 0.1 %; Hematocrit (blood only) 34.2 % (40.1-51.0); Hemoglobin 10.8 g/dl (14.0-18.0); Immature Granulocytes # (auto) 0.02 K/uL (0.00-0.02); Immature Granulocytes % (auto) 0.3 %; Lymphocytes # (auto) 0.49 K/uL (1.2-3.4); Lymphocytes % (auto) 6.3 %; Mean Corpuscular Hemoglobin 25.5 pg (25.0-34.0); Mean Corpuscular Hgb Conc 31.6 g/dL (32.0-36.0); Mean Corpuscular Volume 80.7 fL (80.0-100.0); Mean Platelet Volume 10.5 fL (9.4-12.4); Monocytes # (auto) 0.74 K/uL (0.24-0.82); Monocytes % (auto) 9.5 %; Neutrophils # (auto) 6.49 K/uL (1.4-6.5); Neutrophils % (auto) 83.4 %; Platelet Count 227 K/uL (130-400); RDW Coefficient of Variation 15.1 % (11.5-14.5); RDW Standard Deviation 43.8 fL (36.4-46.3); Red Blood Count 4.24 M/uL (4.63-6.08); White Blood Count 7.78 K/ul (4.8-10.8)
[2022-04-29 17:09] LABS: INR 1.3 (0.9-1.1); Partial Thromboplastin Ratio 0.9; Partial Thromboplastin Time 24.3 Seconds (21.0-31.0); Prothrombin Time 13.3 Seconds (9.0-12.0)
[2022-04-29 17:14] LABS: Albumin Globulin Ratio 1.2 (0.9-2); Albumin Level 3.6 gm/dl (3.4-5.0); BUN Creatinine Ratio 20.3 (10-20); Creatinine Clr Calc Pharmacy 46.4 ml/min; Est GFR (African American) 64.4 ml/min; Est GFR (Non-African American) 55.5 ml/min; Globulin 3.1 gm/dl (2.5-4.0); Magnesium 1.9 mg/dl (1.7-2.4); Potassium 3.5 mmol/L (3.5-5.1); Total Protein 6.7 gm/dl (6.0-8.3)
[2022-04-29 18:56] LABS: Appearance Urine Clear (Clear); Bacteria Urine Automated Negative (Negative); Bilirubin Urine Negative (Negative); Blood Urine Negative (Negative); Color Urine Yellow; Glucose Urine UA Negative (Negative); Ketones Urine Negative (Negative); Leukocyte Esterase Urine 1+ (Negative); Nitrite Urine Negative (Negative); Protein Urine 2+ (Negative); Specific Gravity Urine 1.013 (1.000-1.030); Urobilinogen Urine Negative (Negative)
--- NOTE | 2022-04-29 19:33 | Electrocardiogram Report ---
Test Reason : Blood Pressure : / mmHG Vent. Rate : 067 BPM Atrial Rate : 067 BPM P-R Int : 232 ms QRS Dur : 144 ms QT Int : 470 ms P-R-T Axes : 013 050 203 degrees QTc Int : 496 ms Atrial-paced rhythm with prolonged AV conduction Left bundle branch block Abnormal ECG When compared with ECG of 09-AUG-2016 20:45, Premature atrial complexes are no longer Present QRS axis Shifted right T wave inversion now evident in Inferior leads Confirmed by Tristin Loza ([id number] on 04/29/2022 7:32:56 PM Referred By: Confirmed By:Yao Loza
[2022-04-29] MEDS ORDERED: FUROSEMIDE INJ 20 MG/2 ML VIAL IV ONE (20:53)
[2022-04-29] MEDS ORDERED: METOPROLOL SUCC 25MG EXT REL TAB PO SCH (21:00)
--- NOTE | 2022-04-29 21:02 | Emergency Department Note ---
Impression & Plan DAMON (dyspnea on exertion), Pleural effusion on left ED Provider Note Provider: Charles Schuler MD DATE OF SERVICE: 04/29/2022 CHIEF COMPLAINT: Shortness of breath, leg swelling HISTORY OF PRESENT ILLNESS: Patient is a 87-year-old gentleman past medical history including CAD, TIA, hypertension, carotid stenosis, sick sinus syndrome status postcardiac pacemaker and diabetes presenting today with daughter. Evidently over the last week to week and a half has developed some increased leg swelling and some more shortness of breath. Normally sleeps in the recliner. Getting winded with talking or walking across the room although he does not have stairs at home. Denies any chest pain or fainting or falls. Had a similar episode over the summer that improved with the brief course of Lasix. Had 1 of Lasix currently took this morning. They attempted to contact primary doctor's office but they were unable to get an appointment till the end of the week. Given his shortness of breath came here. Denies fever or chills. Denies sick contact. REVIEW OF SYSTEMS: A total of 10 review of systems was obtained and negative except as stated above in the HPI. PAST MEDICAL HISTORY: As noted above MEDICATIONS: Reviewed home medications SOCIAL HISTORY: , lives in apartment, non-smoker PHYSICAL EXAM: GENERAL: alert and oriented in no acute distress on stretcher Head: normocephalic and atraumatic EYES: No injection, discharge or icterus. NECK: Trachea midline. ENT: Mucous membranes pink and moist. LUNGS: Airway patent. No retractions. Breath sounds with diminished left breath sounds. HEART: Regular rate and rhythm. No chest wall tenderness with left pacemaker in the subcutaneous chest wall noted ABDOMEN: Soft and non-tender, without guarding or rebound. SKIN: Acyanotic, warm, dry, without rashes EXTREMITIES: Without swelling, tenderness or deformity except for 2+ lower extremity edema of the bilateral calves to ankles NEUROLOGICAL: No focal deficits. No aphasia. No facial droop or slurred speech. Ambulatory. EK bpm atrial paced rhythm with prolonged AV conduction without PVC. Left bundle branch block is notable with a QTC of 496. No clear acute ST segment elevation with scar Bosa criteria. Specific inferior T wave changes. CONTINUOUS CARDIAC MONITORING: was ordered and showed a heart rate of 60s-70s bpm in atrially paced left bundle branch block with any prolonged AV conduction Patient's laboratory studies and imaging reviewed. Differential includes Reactive airway disease, pneumonia, pneumothorax, COPD, CHF, infections, cardiac ischemia, pulmonary embolism, musculoskeletal, gastrointestinal, as well as other pathologies. IMPRESSION/MEDICAL DECISION MAKING: Patient denies any chest pain. EKG reviewed with a paced left bundle branch. Minimal troponin elevation of 37 unsure of baseline and may be chronic. Low suspicion for acute ACS. Question some component of possible demand from fluid overload. Chest x-ray reviewed with evidence of a large left pleural effusion. Again with some swelling of the legs seems consistent with fluid overload. Took 20mg of oral Lasix earlier and given additional 20 of IV here now. The rest of his laboratory studies without significant abnormality or signs of renal dysfunction. COVID test was sent but this seems less likely. Patient ambulating in the room becomes winded but does not significantly desaturate. Discussed with daughter and patient. Has not had significant work-up by their recollection of any heart failure work-up or recent echo. Given his swelling and dyspnea with exertion discussed further observation here at the hospital which they wished for. Low suspicion at this time that he has bilateral DVTs or an acute PE; this appears to be more fluid overloaded. DIAGNOSIS: Left pleural effusion, fluid overload, dyspnea on exertion DISPOSITION: Hospitalist will evaluate Patient was agreeable with this plan. Past Med/Surg History Medical History (Updated 04/29/22 @ 22:06 by Charles Schuler M.D.) CAD (coronary artery disease) s/p 3 stents (2012) Cancer BCC Carotid artery stenosis s/p right CEA (2016)/last checked 12/2018 (per vascular office visit note) with LICA 60-69% stenosis, ABIMBOLA without restenosis (monitoring/plan for repeat imaging 1 year) Chronic kidney disease stage III Diabetes mellitus, type 2 IDDM HTN (hypertension) Ischemic cardiomyopathy EF 29% on 08/31/18 LBBB (left bundle branch block) chronic dating back to at least 2017 Myocardial Infarction 2012, 2016 Pacemaker Medtronic, dual-chamber implanted 2015/last checked 03/2019 Retinopathy Sleep apnea no machine TIA (transient ischemic attack) 2017 Surgical History (Updated 07/02/19 @ 09:53 by Marcos Lorenzo PA-C) History of cardiac cath x2; 3 stents (2012) History of carotid endarterectomy RIGHT 08/20/16 - MAC #3, ETT# 7.5 HiLo Grade 1 History of cataract surgery BILATERAL History of herniorrhaphy UMBILICAL HERNIA REPAIR WITH MESH History of total right hip replacement Right INGRID: 09/04/18: unsuccessful spinal (2/2 bone). Decision to convert to [place] (Grade view 1, Pitts#2, ETT 8.0 at [facility]) S/P Mohs surgery for basal cell carcinoma Family History Other Family history non-contributory No family history of adverse response to anesthesia Social History Smoking Status: Never smoker Second Hand Exposure: No; Hx Alcohol Use: No Hx Substance Use: No Preferred Language: Georgian Communication Ability: Effective Visual Impairment: No Limitations Veneer Joiner Required: No Beliefs That Will Affect Care: None marital status: Current Living Situation: Spouse Feels Safe at Home: Yes Assistive Devices: Walker Allergies Allergies Allergy/AdvReac Type Severity Reaction Status Date / Time clonidine AdvReac Severe SEVERE Verified 08/02/19 12:26 BRADYCARDIA Home Meds Home Medications Medication Instructions Recorded Confirmed nitroglycerin 0.4 mg sublingual 0.4 mg sublingual UD PRN Chest 11/12/11 08/02/19 tablet Pain ##0 coenzyme Q10 100 mg capsule 100 mg PO BID #0 caps 10/06/15 08/02/19 ascorbic acid (vitamin C) 500 mg 500 mg PO BID #0 tabs 08/09/16 08/02/19 tablet multivitamin 1 tab PO HS #0 tabs 08/09/16 08/02/19 vitamin B complex-folic acid 0.4 1 tab PO QAM ##0 08/09/16 08/02/19 mg tablet (B Complex 100) insulin glargine 100 unit/mL (3 10 unit subcut HS #0 Pens 08/16/16 08/02/19 mL) subcutaneous pen (Lantus Solostar U-100 Insulin) lisinopril 40 mg tablet 40 mg PO HS #0 tabs 08/16/16 08/02/19 metoprolol tartrate 25 mg tablet 25 mg PO HS 08/25/18 08/02/19 aspirin 81 mg tablet,delayed 81 mg PO DAILY 10/24/18 08/02/19 release hydralazine 100 mg tablet 100 mg PO TID 04/29/22 04/29/22 Results & Data (ED) Vital Signs Vital Signs - 24 hr 04/29/22 14:17 04/29/22 14:17 04/29/22 14:17 Temperature 37.0 C Temperature Source Skin Pulse Rate 66 Pulse Rate [Apical] Respiratory Rate 20 Respiratory Effort / Characteristics Spontaneous SOB on Exertion Non-Labored Spontaneous Respiratory Depth Normal Normal Respiratory Pattern Regular Regular Blood Pressure 155/77 H Blood Pressure [Left Arm] Blood Pressure Mean 103 Blood Pressure Mean [Left Arm] Pulse Oximetry 97 97 Oxygen Delivery Method Room Air Room Air Room Air Sepsis Recent Fever Within 48 Hours No Sepsis New/Unexplained Change in Mental Status N/A Sepsis Action Taken by Nursing No Action Required 04/29/22 20:42 04/29/22 20:42 04/29/22 20:42 Temperature Temperature Source Pulse Rate Pulse Rate [Apical] 73 Respiratory Rate 18 Respiratory Effort / Characteristics Non-Labored Non-Labored Spontaneous Respiratory Depth Normal Respiratory Pattern Blood Pressure Blood Pressure [Left Arm] 176/108 H Blood Pressure Mean Blood Pressure Mean [Left Arm] 130 Pulse Oximetry 96 96 Oxygen Delivery Method Room Air Room Air Room Air Sepsis Recent Fever Within 48 Hours Sepsis New/Unexplained Change in Mental Status Sepsis Action Taken by Nursing 04/29/22 20:42 04/29/22 21:08 04/29/22 21:50 Temperature Temperature Source Pulse Rate Pulse Rate [Apical] 73 71 Respiratory Rate 18 18 Respiratory Effort / Characteristics Non-Labored Spontaneous Respiratory Depth Normal Respiratory Pattern Blood Pressure Blood Pressure [Left Arm] 185/83 H 163/87 H Blood Pressure Mean Blood Pressure Mean [Left Arm] 117 112 Pulse Oximetry 95 96 Oxygen Delivery Method Room Air Room Air Room Air Sepsis Recent Fever Within 48 Hours Sepsis New/Unexplained Change in Mental Status Sepsis Action Taken by Nursing Laboratory Data Result diagrams: 04/29/22 16:20 04/29/22 16:20 Lab Results 04/29/22 04/29/22 04/29/22 Range/Units 16:20 16:20 16:20 WBC 7.78 (4.8-10.8) K/ul RBC 4.24 L (4.63-6.08) M/uL Hgb 10.8 L (14.0-18.0) g/dl Hct 34.2 L (40.1-51.0) % MCV 80.7 (80.0-100.0) fL MCH 25.5 (25.0-34.0) pg MCHC 31.6 L (32.0-36.0) g/dL RDW Std Deviation 43.8 (36.4-46.3) fL RDW Coeff of Anderson 15.1 H (11.5-14.5) % Plt Count 227 (130-400) K/uL MPV 10.5 (9.4-12.4) fL Immature Gran % (Auto) 0.3 % Neut % (Auto) 83.4 % Lymph % (Auto) 6.3 % Avery % (Auto) 9.5 % Eos % (Auto) 0.1 % Baso % (Auto) 0.4 % Neut # (Auto) 6.49 (1.4-6.5) K/uL Lymph # (Auto) 0.49 L (1.2-3.4) K/uL Avery # (Auto) 0.74 (0.24-0.82) K/uL Eos # (Auto) 0.01 (0-0.50) K/uL Baso # (Auto) 0.03 (0-0.2) K/uL Immature Gran # (Auto) 0.02 (0.00-0.02) K/uL PT 13.3 H (9.0-12.0) Seconds INR 1.3 H (0.9-1.1) APTT 24.3 (21.0-31.0) Seconds PTT Ratio 0.9 Sodium 138 (136-145) mmol/L Potassium 3.5 (3.5-5.1) mmol/L Chloride 101 (98-107) mmol/L Carbon Dioxide 25 (21-32) mmol/L Anion Gap 12 H (3-11) BUN 24 H (6-23) mg/dl Creatinine 1.18 (0.6-1.4) mg/dl Est Cr Clr Drug Dosing 46.4 ml/min Est GFR ( Amer) 64.4 ml/min Est GFR (Non-Af Amer) 55.5 ml/min BUN/Creatinine Ratio 20.3 H (10-20) Glucose 66 L (70-99(Fasting)) mg/dl POC Glucose (70-99) mg/dl Calcium 9.0 (8.5-10.1) mg/dl Magnesium 1.9 (1.7-2.4) mg/dl Total Bilirubin 1.0 (0.2-1.0) mg/dl AST 17 (13-39) U/L ALT 8 (7-52) U/L Alkaline Phosphatase 69 (34-104) U/L Troponin I High Sens 37.0 H (0-20) pg/ml Total Protein 6.7 (6.0-8.3) gm/dl Albumin 3.6 (3.4-5.0) gm/dl Globulin 3.1 (2.5-4.0) gm/dl Albumin/Globulin Ratio 1.2 (0.9-2) Urine Color Urine Appearance (Clear) Urine pH (4.5-7.5) Ur Specific [place] (1.000-1.030) Urine Protein (Negative) Urine Glucose (UA) (Negative) Urine Ketones (Negative) Urine Blood (Negative) Urine Nitrite (Negative) Urine Bilirubin (Negative) Urine Urobilinogen (Negative) Ur Leukocyte Esterase (Negative) Urine WBC (Auto) (0-5) /hpf Urine RBC (Auto) (0-4) /hpf U Hyaline Cast (Auto) (0-5) /lpf U Epithel Cells (Auto) (0-5) /lpf Urine Bacteria (Auto) (Negative) Urine Crystals SARS-CoV-2, RNA, NAAT (NEGATIVE) 04/29/22 04/29/22 04/29/22 Range/Units 18:40 20:45 21:02 WBC (4.8-10.8) K/ul RBC (4.63-6.08) M/uL Hgb (14.0-18.0) g/dl Hct (40.1-51.0) % MCV (80.0-100.0) fL MCH (25.0-34.0) pg MCHC (32.0-36.0) g/dL RDW Std Deviation (36.4-46.3) fL RDW Coeff of Anderson (11.5-14.5) % Plt Count (130-400) K/uL MPV (9.4-12.4) fL Immature Gran % (Auto) % Neut % (Auto) % Lymph % (Auto) % Avery % (Auto) % Eos % (Auto) % Baso % (Auto) % Neut # (Auto) (1.4-6.5) K/uL Lymph # (Auto) (1.2-3.4) K/uL Avery # (Auto) (0.24-0.82) K/uL Eos # (Auto) (0-0.50) K/uL Baso # (Auto) (0-0.2) K/uL Immature Gran # (Auto) (0.00-0.02) K/uL PT (9.0-12.0) Seconds INR (0.9-1.1) APTT (21.0-31.0) Seconds PTT Ratio Sodium (136-145) mmol/L Potassium (3.5-5.1) mmol/L Chloride (98-107) mmol/L Carbon Dioxide (21-32) mmol/L Anion Gap (3-11) BUN (6-23) mg/dl Creatinine (0.6-1.4) mg/dl Est Cr Clr Drug Dosing ml/min Est GFR ( Amer) ml/min Est GFR (Non-Af Amer) ml/min BUN/Creatinine Ratio (10-20) Glucose (70-99(Fasting)) mg/dl POC Glucose 86 (70-99) mg/dl Calcium (8.5-10.1) mg/dl Magnesium (1.7-2.4) mg/dl Total Bilirubin (0.2-1.0) mg/dl AST (13-39) U/L ALT (7-52) U/L Alkaline Phosphatase (34-104) U/L Troponin I High Sens (0-20) pg/ml Total Protein (6.0-8.3) gm/dl Albumin (3.4-5.0) gm/dl Globulin (2.5-4.0) gm/dl Albumin/Globulin Ratio (0.9-2) Urine Color Yellow Urine Appearance Clear (Clear) Urine pH 5.0 (4.5-7.5) Ur Specific [place] 1.013 (1.000-1.030) Urine Protein 2+ H (Negative) Urine Glucose (UA) Negative (Negative) Urine Ketones Negative (Negative) Urine Blood Negative (Negative) Urine Nitrite Negative (Negative) Urine Bilirubin Negative (Negative) Urine Urobilinogen Negative (Negative) Ur Leukocyte Esterase 1+ H (Negative) Urine WBC (Auto) 5-10 H (0-5) /hpf Urine RBC (Auto) 5-10 H (0-4) /hpf U Hyaline Cast (Auto) 1-5 (0-5) /lpf U Epithel Cells (Auto) 10-20 H (0-5) /lpf Urine Bacteria (Auto) Negative (Negative) Urine Crystals Not Reportable SARS-CoV-2, RNA, NAAT NEGATIVE (NEGATIVE) 04/29/22 Range/Units 21:05 WBC (4.8-10.8) K/ul RBC (4.63-6.08) M/uL Hgb (14.0-18.0) g/dl Hct (40.1-51.0) % MCV (80.0-100.0) fL MCH (25.0-34.0) pg MCHC (32.0-36.0) g/dL RDW Std Deviation (36.4-46.3) fL RDW Coeff of Anderson (11.5-14.5) % Plt Count (130-400) K/uL MPV (9.4-12.4) fL Immature Gran % (Auto) % Neut % (Auto) % Lymph % (Auto) % Avery % (Auto) % Eos % (Auto) % Baso % (Auto) % Neut # (Auto) (1.4-6.5) K/uL Lymph # (Auto) (1.2-3.4) K/uL Avery # (Auto) (0.24-0.82) K/uL Eos # (Auto) (0-0.50) K/uL Baso # (Auto) (0-0.2) K/uL Immature Gran # (Auto) (0.00-0.02) K/uL PT (9.0-12.0) Seconds INR (0.9-1.1) APTT (21.0-31.0) Seconds PTT Ratio Sodium (136-145) mmol/L Potassium (3.5-5.1) mmol/L Chloride (98-107) mmol/L Carbon Dioxide (21-32) mmol/L Anion Gap (3-11) BUN (6-23) mg/dl Creatinine (0.6-1.4) mg/dl Est Cr Clr Drug Dosing ml/min Est GFR ( Amer) ml/min Est GFR (Non-Af Amer) ml/min BUN/Creatinine Ratio (10-20) Glucose (70-99(Fasting)) mg/dl POC Glucose (70-99) mg/dl Calcium (8.5-10.1) mg/dl Magnesium (1.7-2.4) mg/dl Total Bilirubin (0.2-1.0) mg/dl AST (13-39) U/L ALT (7-52) U/L Alkaline Phosphatase (34-104) U/L Troponin I High Sens 42.3 H (0-20) pg/ml Total Protein (6.0-8.3) gm/dl Albumin (3.4-5.0) gm/dl Globulin (2.5-4.0) gm/dl Albumin/Globulin Ratio (0.9-2) Urine Color Urine Appearance (Clear) Urine pH (4.5-7.5) Ur Specific [place] (1.000-1.030) Urine Protein (Negative) Urine Glucose (UA) (Negative) Urine Ketones (Negative) Urine Blood (Negative) Urine Nitrite (Negative) Urine Bilirubin (Negative) Urine Urobilinogen (Negative) Ur Leukocyte Esterase (Negative) Urine WBC (Auto) (0-5) /hpf Urine RBC (Auto) (0-4) /hpf U Hyaline Cast (Auto) (0-5) /lpf U Epithel Cells (Auto) (0-5) /lpf Urine Bacteria (Auto) (Negative) Urine Crystals SARS-CoV-2, RNA, NAAT (NEGATIVE) Administered Medications Metoprolol Succinate (Metoprolol Succ 25mg Ext Rel Tab) 25 mg PO QPM GABRIELA Stop: 05/29/22 20:59 Last Admin: 04/29/22 21:45 Dose: 25 mg Documented By: ANGIE Discontinued Medications Furosemide (Furosemide Inj 20 Mg/2 Ml Vial) 20 mg IV ONE ONE Stop: 04/29/22 20:54 Last Admin: 04/29/22 21:03 Dose: 20 mg Documented By: ANGIE Imaging Data Radiologist's Impression: Chest X-Ray 04/29/22 14:24 XR chest 1V portable HISTORY: Shortness of breath. COMPARISON: Chest 08/27/2018. FINDINGS: Interval development of a large left pleural effusion. The heart is mildly enlarged. This remains unchanged. There is a left-sided dual-chamber pacemaker. Small focal density at the right lung base. No pneumothorax. Left lung densities favor compressive atelectasis from the large left pleural effusion. No evidence for pulmonary edema. IMPRESSION: 1. Interval development of a large left pleural effusion. 2. A small right basilar density is nonspecific but may represent atelectasis. ACT 112: Negative or not required by law. Electronically signed by: Arcadio Blackmon M.D. 04/29/2022 3:36 PM Discharge Plan Visit Data Chief Complaint: Shortness of Breath/Dyspnea Stated Complaint: SHORTNESS OF BREATH, SWOLLEN BODY ED Provider: Charles Schuler Discharge Problem: DAMON (dyspnea on exertion), Pleural effusion on left Patient Disposition: Being Evaluated by Hospitalist Forms Stand Alone Forms: [facility] Prescriptions Prescriptions: No Action nitroglycerin 0.4 mg Tablet, Sublingual 0.4 mg Sublingual UD PRN (Reason: Chest Pain) Qty: 0 Label Comments: PLACE ONE TABLET UNDER THE TONGUE EVERY 5 MINUTES NEEDED FOR CHEST PAIN. MAXIMUM 3 DOSES IN 15 MINUTES. coenzyme Q10 100 mg Capsule 100 mg PO BID Qty: 0 multivitamin Tablet 1 tab PO HS Qty: 0 ascorbic acid (vitamin C) 500 mg Tablet 500 mg PO BID Qty: 0 vitamin B complex-folic acid [B Complex 100] 0.4 mg Tablet 1 tab PO QAM Qty: 0 insulin glargine [Lantus Solostar U-100 Insulin] 100 unit/mL (3 mL) Insulin Pen 10 unit SUBCUT HS Qty: 0 lisinopril 40 mg Tablet 40 mg PO HS Qty: 0 metoprolol tartrate 25 mg Tablet 25 mg PO HS aspirin 81 mg Tablet,Delayed Release (Dr/Ec) 81 mg PO DAILY hydralazine 100 mg tablet 100 mg PO TID Referrals Referrals: Wang Nieto MD [Primary Care Provider] -
--- NOTE | 2022-04-29 23:51 | History and Physical Report ---
DATE OF ADMISSION: 04/29/2022. CHIEF COMPLAINT: Shortness of breath. HISTORY OF PRESENT ILLNESS: This is an 87-year-old male with past medical history significant for diabetic retinopathy, hyperlipidemia, diabetes with peripheral angiopathy, history of obstructive sleep apnea, but currently not on CPAP or oxygen, history of CAD, history of chronic systolic and diastolic CHF, history of peripheral artery disease, chronic kidney disease stage III, history of CVA, history of left bundle-branch block, history of sick sinus syndrome, status post pacemaker, history of cardiac stent placement, history of bilateral hip replacement and carotid endarterectomy, presents with shortness of breath. The patient lives at home with his , ambulates without any support. Since the last couple of weeks, he is feeling short of breath on exertion. Today, he checked his weight, he has gained 13 pounds in the last 3 weeks. He was on Lasix in summer. He no longer needed Lasix and was stopped on 01/06/2022, but he had a couple of doses left, so he took one of Lasix today and planned to see family doctor, but he could not get an appointment sooner, so he came to the ER. In the ER, he was found to have lower extremity edema and also chest x-ray showing large left pleural effusion, receiving a dose of 20 of IV Lasix in the ER. Currently, resting comfortably. While resting, he says his oxygen saturations are okay. Denies any chest pain. Denies any headache. No back pain, no neck pain, no abdominal pain, no leg pains. No earache. Has some runny nose. No sore throat, no cough, no fevers. Appetite is okay. No difficulty swallowing. He is trying to cut down salt, but sometimes eating processed foods. No diarrhea or constipation. Normal bowel and bladder movements. Afebrile. His last EF was in November 2021, EF 29%. Cardiology wanted to place him on biventricular pacemaker with or without AICD, but the patient declined at that time; seen by cardiology in November 2021. ALLERGIES: CLONIDINE. PAST MEDICAL HISTORY: As mentioned above. PAST SURGICAL HISTORY: Cardiac catheterization, injection of eye drug, laser trabeculoplasty, pacemaker insertion, cataract surgery, right thromboendarterectomy, bilateral hip replacement, umbilical hernia repair. MEDICATIONS: The patient is on aspirin 81 mg p.o. daily, hydralazine 100 mg p.o. t.i.d., Lantus 10 units subcutaneous at bedtime, lisinopril 40 mg p.o. daily, metoprolol succinate 25 mg p.o. at bedtime, multivitamins p.o. daily, nitroglycerin p.r.n., vitamin B complex 1 tablet daily. FAMILY HISTORY: Significant for brother has diabetes, sister has diabetes; father has heart disorder; mother has heart disorder; sister has hypertension; father has stroke. SOCIAL HISTORY: . Quit cigars in 1972. No alcohol use. No drug use. REVIEW OF SYSTEMS: As per HPI. Rest of review of systems is negative. PHYSICAL EXAMINATION: GENERAL: The patient is of moderate build, not in acute distress. VITAL SIGNS: Temperature 37, pulse 71, respiratory rate 18, blood pressure 163/87, oxygen 96% on room air. HEENT: Pupils equal, round and reactive to light. Oral mucosa moist. NECK: No JVD. No neck masses. No carotid bruits. CARDIOVASCULAR: S1 and S2 heard. Regular rate and rhythm. No murmur, no gallop. RESPIRATORY SYSTEM: Normal AP diameter. No accessory muscle use. Mild bibasilar crackles. No wheezing. ABDOMEN: Soft, bowel sounds present, nontender, no distention. CENTRAL NERVOUS SYSTEM: Cranial nerves II-XII grossly intact, nonfocal. EXTREMITIES: Bilateral lower extremity pedal edema +2 present, no erythema seen. LABORATORY DATA: WBC 7.7, hemoglobin 10.8, hematocrit 34.2, platelets 227. PT 13.3, INR 1.3, APTT 24.3. Sodium 138, potassium 3.5, chloride 101, bicarbonate 25, BUN 24, creatinine 1.1, serum glucose 266, calcium 9, magnesium 1.9, total bilirubin 1, AST 17, ALT 8, alkaline phosphatase 69. Troponin I high sensitivity 42.3. Urinalysis, +1 leukocyte esterase. SARS-CoV-2 rapid test negative. IMAGING DATA: Chest x-ray, interval development of large left pleural effusion. EKG: Atrial paced ventricular rhythm with prolonged AV conduction at a rate of 67, left bundle-branch block. ASSESSMENT AND PLAN: This is an 87-year-old male who presents with shortness of breath, found to have acute on chronic systolic and diastolic congestive heart failure. 1. Acute on chronic systolic and diastolic congestive heart failure, EF of 29% on echocardiogram done in November 2021, grade II diastolic congestive heart failure, was on Lasix in the summer, but currently off of it.Took one dose today. Chest x-ray showing large left pleural effusion, ER gave 20 of IV Lasix, we will give another 20 of IV Lasix and place him on IV Lasix 40 b.i.d. We will get repeat echo. Serial cardiac enzymes, consult cardiology in the a.m. Monitor in the tele floor. Follow daily I's and O's, daily weights and follow the labs while on Lasix. Continue his home lisinopril and hydralazine and metoprolol succinate. 2. History of coronary artery disease, status post stent: Continue his aspirin and beta rachelle. Not on any statin currently. 3. History of diabetes: His sugars were low in the ER, we will cut back his Lantus to [address] him insulin sliding scale. Follow the blood sugars. 4. History of hypertension: Continue his lisinopril, metoprolol succinate and diuretics. Monitor his blood pressure. 5. History of sick sinus syndrome, status post pacemaker. 6. Chronic kidney disease stage III, currently creatinine of 1.1. We will follow the labs. 7. Possible urinary tract infection. Leukocyte esterase is positive, but bacteria negative. The patient does not have any symptoms. We will follow the cultures. 8. Deep venous thrombosis prophylaxis: Placed on Lovenox. DISPOSITION: Closely monitor in the tele floor. Level 1 full code. PT/OT prior to discharge. Social service to help with discharge planning. Expect to discharge home and follow with family doctor. Job ID: [id number] [facility]
[2022-04-30] MEDS ORDERED: ACETAMINOPHEN 325 MG TAB PO PRN (00:35)
[2022-04-30] MEDS ORDERED: POLYETHYLENE (MIRALAX) 17 GM PACK PO PRN (00:35)
[2022-04-30] MEDS ORDERED: NITROGLYCERIN SL 0.4 MG/TAB TAB SL PRN (00:35)
[2022-04-30] MEDS ORDERED: FUROSEMIDE INJ 20 MG/2 ML VIAL IV ONE (01:00)
[2022-04-30 06:41] LABS: Basophils # (auto) 0.04 K/uL (0-0.2); Basophils % (auto) 0.7 %; Eosinophils # (auto) 0.02 K/uL (0-0.50); Eosinophils % (auto) 0.4 %; Hematocrit (blood only) 31.9 % (40.1-51.0); Hemoglobin 10.4 g/dl (14.0-18.0); Immature Granulocytes # (auto) 0.01 K/uL (0.00-0.02); Immature Granulocytes % (auto) 0.2 %; Lymphocytes # (auto) 0.64 K/uL (1.2-3.4); Lymphocytes % (auto) 11.5 %; Mean Corpuscular Hemoglobin 25.7 pg (25.0-34.0); Mean Corpuscular Hgb Conc 32.6 g/dL (32.0-36.0); Mean Corpuscular Volume 78.8 fL (80.0-100.0); Mean Platelet Volume 10.7 fL (9.4-12.4); Monocytes # (auto) 0.67 K/uL (0.24-0.82); Neutrophils % (auto) 75.2 %; Platelet Count 198 K/uL (130-400); RDW Coefficient of Variation 15.2 % (11.5-14.5); RDW Standard Deviation 43.2 fL (36.4-46.3); Red Blood Count 4.05 M/uL (4.63-6.08); White Blood Count 5.58 K/ul (4.8-10.8)
[2022-04-30 07:06] LABS: BUN Creatinine Ratio 20.5 (10-20); Calcium 8.7 mg/dl (8.5-10.1); Creatinine Clr Calc Pharmacy 44.9 ml/min; Est GFR (African American) 61.8 ml/min; Est GFR (Non-African American) 53.4 ml/min; Magnesium 1.6 mg/dl (1.7-2.4); Potassium 3.4 mmol/L (3.5-5.1)
[2022-04-30 07:23] LABS: Troponin I High Sensitivity 64.1 pg/ml (0-20)
[2022-04-30 07:47] LABS: Estimated Average Glucose 128 mg/dl; Hemoglobin A1C 6.1 % (4.5-5.6)
[2022-04-30] MEDS ORDERED: POTASSIUM CHLORIDE CRTAB 20 MEQ TABCR PO STA (08:42)
[2022-04-30] MEDS ORDERED: ENOXAPARIN INJ 40 MG/0.4 ML SYR SQ SCH (09:00)
[2022-04-30] MEDS: INSULIN ASPART PER UNIT SC SCH ×4 (09:42→20:19)
[2022-04-30] MEDS: ASPIRIN 81 MG ECTAB PO SCH (09:47)
[2022-04-30] MEDS: FUROSEMIDE 40 MG/4 ML VIAL IV SCH ×2 (09:48→18:21)
[2022-04-30] MEDS: hydrALAZINE TAB 50 MG TAB PO SCH ×3 (09:48→20:11)
[2022-04-30] MEDS: VITAMIN B COMPLEX TAB PO SCH (09:48)
[2022-04-30] MEDS: lisinopril 40 MG TAB PO SCH (09:49)
--- NOTE | 2022-04-30 09:55 | Cardiology Consultation ---
Date of Consultation April 30, 2022 Assessment & Plan (1) Acute on chronic systolic heart failure: (2) Ischemic cardiomyopathy: (3) Pleural effusion on left: (4) SSS (sick sinus syndrome): Plan Patient is an 87-year-old male with known ischemic cardiomyopathy with severe LV dysfunction and chronic systolic heart failure with reduced ejection fraction. Patient with transient decompensation earlier this summer relieved by diuretics. Patient has had a lapse in diuretic therapy. Presents now with signs and symptoms of decompensated congestive heart failure with a very large left pleural effusion. Past chest x-ray December 14, 2001 moderate-sized pleural effusion Recommendations: 1. Acute on chronic decompensated systolic heart failure: IV furosemide has been ordered patient otherwise on guideline directed regimen. Patient appears to be responding to diuretics.Will follow renal function consider spironolactone addition 2. Very large left pleural effusion: We will consult pulmonology as patient may benefit symptomatically from thoracentesis. We will hold Lovenox 3. Severe ischemic cardiomyopathy: Initial review of echocardiogram preliminary images demonstrates severe LV dysfunction in a pattern consistent with prior echocardiograms EF 20%. There is severe tricuspid insufficiency with elevated pulmonary pressures. Patient in the past has declined upgrade to BiV ICD. We will need to revisit and discuss CODE STATUS as well given prior preferences of conservative therapy 4. Hypertension: Continue prehospital medications. Add isosorbide dinitrate 20 mg 3 times daily in addition to hydralazine and lisinopril History of Present Illness Reason for Consultation: Acute on chronic congestive heart failure with large pleural effusion Requesting Physician: Dr. Pruitt Attending Physician: Trino Pruitt MD History of Present Illness Patient is an 87-year-old male with ongoing issues 1. Chronic systolic heart failure with reduced ejection fraction, EF 20-25% 2. Ischemic cardiomyopathy, RCA/circumflex territory scar, left bundle branch block, severe left ventricular systolic dysfunction - . Patient declined BIV upgrade previously. Conservative therapies preferred 3. Dyslipidemia with Statin intolerance 4. Sinus node dysfunction, status post dual lead permanent pacemaker Medtronic advisor DR PIERRE A2 DR Reed 08/22/2059, 97% atrial paced, minimal RV pacing 5. Atherosclerotic carotid artery disease status post right carotid endarterectomy 6. Obstructive sleep apnea/nocturnal hypoxia 7. Refractory hypertension 8. Newly detected iron deficiency anemia Patient presents via the ER with symptoms of worsening shortness of breath and greater than 13 pound weight gain in the past 2 to 3 weeks. Patient notes treated for systolic heart failure in November and December of this past year with improvement in symptoms with oral diuretics. After improvement patient discontinued diuretics and was to cautiously follow weights. He notes recent lapse in following weights but on recheck with symptoms of dyspnea substantial weight gain and increasing lower extremity edema. Day of admission patient was having difficulty speaking due to breathlessness On presentation patient has responded to IV diuretics however chest x-ray demonstrates a very large left pleural effusion encompassing nearly 2/3 lung araiza He denies any recent fevers chills or cough. No chest pains or tachypalp itations. No syncope or near syncope. He is relatively sedentary about his home No current bleeding difficulties. Has been taking medications as prescribed other than furosemide Allergies Allergy/AdvReac Type Severity Reaction Status Date / Time clonidine AdvReac Severe SEVERE Verified 04/30/22 08:48 BRADYCARDIA Home Medications Medication Instructions Recorded Confirmed Type nitroglycerin 0.4 mg sublingual 0.4 mg sublingual UD PRN Chest 11/12/11 04/30/22 History tablet Pain ##0 coenzyme Q10 100 mg capsule 100 mg PO QPM #0 caps 10/06/15 04/30/22 History ascorbic acid (vitamin C) 500 mg 500 mg PO BID #0 tabs 08/09/16 04/30/22 History tablet multivitamin 1 tab PO QPM #0 tabs 08/09/16 04/30/22 History insulin glargine 100 unit/mL (3 10 unit subcut HS #0 Pens 08/16/16 04/30/22 History mL) subcutaneous pen (Lantus Solostar U-100 Insulin) lisinopril 40 mg tablet 40 mg PO DAILY #0 tabs 08/16/16 04/30/22 History aspirin 81 mg tablet,delayed 81 mg PO QPM 10/24/18 04/30/22 History release hydralazine 100 mg tablet 100 mg PO TID 04/29/22 04/30/22 History metoprolol succinate 25 mg 25 mg PO HS 04/29/22 04/29/22 History tablet,extended release 24 hr vitamin B complex 1 tab PO DAILY 04/30/22 04/30/22 History Patient History Medical History (Updated 04/30/22 @ 10:02 by Nishant Hope MD) CAD (coronary artery disease) s/p 3 stents (2012) Cancer BCC Carotid artery stenosis s/p right CEA (2016)/last checked 12/2018 (per vascular office visit note) with LICA 60-69% stenosis, ABIMBOLA without restenosis (monitoring/plan for repeat imaging 1 year) Chronic kidney disease stage III Diabetes mellitus, type 2 IDDM HTN (hypertension) Ischemic cardiomyopathy EF 29% on 08/31/18 LBBB (left bundle branch block) chronic dating back to at least 2016 Myocardial Infarction 2012, 2015 Pacemaker Medtronic, dual-chamber implanted 2015/last checked 03/2019 Retinopathy Sleep apnea no machine TIA (transient ischemic attack) 2016 Surgical History History of cardiac cath x2; 3 stents (2012) History of carotid endarterectomy RIGHT 08/20/16 - MAC #3, ETT# 7.5 HiLo Grade 1 History of cataract surgery BILATERAL History of herniorrhaphy UMBILICAL HERNIA REPAIR WITH MESH History of total right hip replacement Right INGRID: 09/04/18: unsuccessful spinal (2/2 bone). Decision to convert to [place] (Grade view 1, Pitts#2, ETT 8.0 at [facility]) S/P Mohs surgery for basal cell carcinoma Family History Other Family history non-contributory No family history of adverse response to anesthesia Social History Smoking Status: Never smoker Second Hand Exposure: No; Hx Alcohol Use: No Hx Substance Use: No Preferred Language: Slovenian Communication Ability: Effective Visual Impairment: No Limitations It Operations Analyst Required: No Beliefs That Will Affect Care: None marital status: Current Living Situation: Spouse Feels Safe at Home: Yes Assistive Devices: Walker Review of Systems Review of Systems: All systems reviewed & are unremarkable except as noted in HPI & below Physical Exam Constitutional: WD/WN, vitals as above Eyes: PERRL, conjunctivae normal, anicteric sclerae ENMT: external ear and nose normal, oropharynx normal Neck: trachea midline, no thyromegaly Right carotid endarterectomy scar Respiratory: no respiratory distress Auscultation: + diminished lung sounds (Markedly diminished breath sounds left lung araiza) Cardiovascular: Rate/Rhythm: regular rate and regular rhythm Extremities: + edema (1-2+ with chronic stasis changes) Chest (Breasts): Chest: + pacemaker Gastrointestinal (Abdomen): normal bowel sounds, soft, nontender, no hepatosplenomegaly Musculoskeletal: no cyanosis or clubbing, extremities motor strength 5/5 Results & Data ([facility]) Vital Signs (Past 12 Hours) Vital Signs Pulse Resp BP Pulse Ox Pulse Ox O2 Del Method O2 Del Method 04/30/22 07:00 63 20 177/98 H 97 Room Air 04/30/22 00:35 63 18 164/83 H 95 Room Air 04/30/22 00:35 92 Room Air 04/29/22 23:25 76 21 171/83 H 95 Room Air 04/29/22 22:26 68 18 165/81 H 94 Room Air 04/29/22 21:50 71 18 163/87 H 96 Room Air Laboratory Results Laboratory Results - last 24 hr 04/29/22 04/29/22 04/29/22 16:20 16:20 16:20 WBC 7.78 RBC 4.24 L Hgb 10.8 L Hct 34.2 L MCV 80.7 MCH 25.5 MCHC 31.6 L RDW Std Deviation 43.8 RDW Coeff of Anderson 15.1 H Plt Count 227 MPV 10.5 Immature Gran % (Auto) 0.3 Neut % (Auto) 83.4 Lymph % (Auto) 6.3 Wilcox % (Auto) 9.5 Eos % (Auto) 0.1 Baso % (Auto) 0.4 Neut # (Auto) 6.49 Lymph # (Auto) 0.49 L Wilcox # (Auto) 0.74 Eos # (Auto) 0.01 Baso # (Auto) 0.03 Immature Gran # (Auto) 0.02 PT 13.3 H INR 1.3 H APTT 24.3 PTT Ratio 0.9 Sodium 138 Potassium 3.5 Chloride 101 Carbon Dioxide 25 Anion Gap 12 H BUN 24 H Creatinine 1.18 Est Cr Clr Drug Dosing 46.4 Est GFR ( Amer) 64.4 Est GFR (Non-Af Amer) 55.5 BUN/Creatinine Ratio 20.3 H Glucose 66 L POC Glucose Estimat Average Glucose Hemoglobin A1c Calcium 9.0 Magnesium 1.9 Total Bilirubin 1.0 AST 17 ALT 8 Alkaline Phosphatase 69 Troponin I High Sens 37.0 H Total Protein 6.7 Albumin 3.6 Globulin 3.1 Albumin/Globulin Ratio 1.2 Urine Color Urine Appearance Urine pH Ur Specific [place] Urine Protein Urine Glucose (UA) Urine Ketones Urine Blood Urine Nitrite Urine Bilirubin Urine Urobilinogen Ur Leukocyte Esterase Urine WBC (Auto) Urine RBC (Auto) U Hyaline Cast (Auto) U Epithel Cells (Auto) Urine Bacteria (Auto) Urine Crystals SARS-CoV-2, RNA, NAAT 04/29/22 04/29/22 04/29/22 18:40 20:45 21:02 WBC RBC Hgb Hct MCV MCH MCHC RDW Std Deviation RDW Coeff of Anderson Plt Count MPV Immature Gran % (Auto) Neut % (Auto) Lymph % (Auto) Wilcox % (Auto) Eos % (Auto) Baso % (Auto) Neut # (Auto) Lymph # (Auto) Wilcox # (Auto) Eos # (Auto) Baso # (Auto) Immature Gran # (Auto) PT INR APTT PTT Ratio Sodium Potassium Chloride Carbon Dioxide Anion Gap BUN Creatinine Est Cr Clr Drug Dosing Est GFR ( Amer) Est GFR (Non-Af Amer) BUN/Creatinine Ratio Glucose POC Glucose 86 Estimat Average Glucose Hemoglobin A1c Calcium Magnesium Total Bilirubin AST ALT Alkaline Phosphatase Troponin I High Sens Total Protein Albumin Globulin Albumin/Globulin Ratio Urine Color Yellow Urine Appearance Clear Urine pH 5.0 Ur Specific [place] 1.013 Urine Protein 2+ H Urine Glucose (UA) Negative Urine Ketones Negative Urine Blood Negative Urine Nitrite Negative Urine Bilirubin Negative Urine Urobilinogen Negative Ur Leukocyte Esterase 1+ H Urine WBC (Auto) 5-10 H Urine RBC (Auto) 5-10 H U Hyaline Cast (Auto) 1-5 U Epithel Cells (Auto) 10-20 H Urine Bacteria (Auto) Negative Urine Crystals Not Reportable SARS-CoV-2, RNA, NAAT NEGATIVE 04/29/22 04/30/22 04/30/22 21:05 05:40 05:40 WBC 5.58 RBC 4.05 L Hgb 10.4 L Hct 31.9 L MCV 78.8 L MCH 25.7 MCHC 32.6 RDW Std Deviation 43.2 RDW Coeff of Anderson 15.2 H Plt Count 198 MPV 10.7 Immature Gran % (Auto) 0.2 Neut % (Auto) 75.2 Lymph % (Auto) 11.5 Wilcox % (Auto) 12.0 Eos % (Auto) 0.4 Baso % (Auto) 0.7 Neut # (Auto) 4.20 Lymph # (Auto) 0.64 L Wilcox # (Auto) 0.67 Eos # (Auto) 0.02 Baso # (Auto) 0.04 Immature Gran # (Auto) 0.01 PT INR APTT PTT Ratio Sodium 137 Potassium 3.4 L Chloride 98 Carbon Dioxide 28 Anion Gap 11 BUN 25 H Creatinine 1.22 Est Cr Clr Drug Dosing 44.9 Est GFR ( Amer) 61.8 Est GFR (Non-Af Amer) 53.4 BUN/Creatinine Ratio 20.5 H Glucose 146 H POC Glucose Estimat Average Glucose Hemoglobin A1c Calcium 8.7 Magnesium 1.6 L Total Bilirubin AST ALT Alkaline Phosphatase Troponin I High Sens 42.3 H 64.1 H* D Total Protein Albumin Globulin Albumin/Globulin Ratio Urine Color Urine Appearance Urine pH Ur Specific [place] Urine Protein Urine Glucose (UA) Urine Ketones Urine Blood Urine Nitrite Urine Bilirubin Urine Urobilinogen Ur Leukocyte Esterase Urine WBC (Auto) Urine RBC (Auto) U Hyaline Cast (Auto) U Epithel Cells (Auto) Urine Bacteria (Auto) Urine Crystals SARS-CoV-2, RNA, NAAT 04/30/22 04/30/22 05:40 09:01 WBC RBC Hgb Hct MCV MCH MCHC RDW Std Deviation RDW Coeff of Anderson Plt Count MPV Immature Gran % (Auto) Neut % (Auto) Lymph % (Auto) Wilcox % (Auto) Eos % (Auto) Baso % (Auto) Neut # (Auto) Lymph # (Auto) Wilcox # (Auto) Eos # (Auto) Baso # (Auto) Immature Gran # (Auto) PT INR APTT PTT Ratio Sodium Potassium Chloride Carbon Dioxide Anion Gap BUN Creatinine Est Cr Clr Drug Dosing Est GFR ( Amer) Est GFR (Non-Af Amer) BUN/Creatinine Ratio Glucose POC Glucose 144 H Estimat Average Glucose 128 Hemoglobin A1c 6.1 H Calcium Magnesium Total Bilirubin AST ALT Alkaline Phosphatase Troponin I High Sens Total Protein Albumin Globulin Albumin/Globulin Ratio Urine Color Urine Appearance Urine pH Ur Specific [place] Urine Protein Urine Glucose (UA) Urine Ketones Urine Blood Urine Nitrite Urine Bilirubin Urine Urobilinogen Ur Leukocyte Esterase Urine WBC (Auto) Urine RBC (Auto) U Hyaline Cast (Auto) U Epithel Cells (Auto) Urine Bacteria (Auto) Urine Crystals SARS-CoV-2, RNA, NAAT Diagnostic Findings Echocardiogram 12/06/2021 Rojas Smith Mildly dilated LV chamber size with mild concentric LVH. Severely reduced LV systolic function. Calculated LV ejection Fraction = 29% (bi-plane method of discs). There is a large sized apical, inferior, lateral, and posterior wall motion abnormality with akinesis of the segments. The anterior wall and inferior septum are hypokinetic. Grade 2 diastolic dysfunction. Moderate tricuspid regurgitation. Pulmonary hypertension is present. The PA systolic pressure is > 39 mmHG. Dilated IVC with reduced collapsability with sniff indicates an elevated right atrial pressure of 15mmHg. The estimated pulmonary artery systolic pressure is 77mm Hg.
--- NOTE | 2022-04-30 10:47 | Pulmonary Consultation ---
Date of Consultation April 30, 2022 Assessment & Plan (1) DAMON (dyspnea on exertion): (2) Pleural effusion on left: Plan Chest x-ray 04/21/2022 personally viewed: Portable film, large left-sided pleural effusion, right costophrenic and cardiophrenic infection, increased cardiac silhouette -- Left-sided pleural effusion New compared to before Under etiology is most likely CHF Never had thoracentesis done in the past 13 pounds weight gain Has not been taking Lasix since December COVID-19 NAAT negative --Shortness of breath Secondary to above Plan: Plan for thoracentesis later today Risk and benefit explained the patient in depth, he understands and agrees to go ahead with the procedure Consent signed, witnessed and put in the chart Please note the above document was generated using voice recognition software. It may contain grammatical, syntax or spelling errors.Any formal questions or concerns about the content, text or information contained within the body of this dictation should be directly addressed to the provider for clarification. History of Present Illness Attending Physician: Trino Pruitt MD History of Present Illness 87-year-old male presented to hospital for shortness of breath Past medical history: Dyslipidemia, ALIDA noncompliant with CPAP, history of coronary artery disease, systolic plus diastolic CHF, peripheral vascular disease, CKD stage III Pulmonary consulted as he was found to have large left-sided pleural effusion At the time of examination patient was not in any respiratory distress He stated that he has been having issues with exertional shortness of breath which has been going on for a while. He has gained approximately 13 pounds in the last 6 weeks. Denies any chest pain, no cough, no fever or chills No dysuria, no diarrhea No history of cancer. Denies any headache Social history: Used to be cigar smoker. Never smoked cigarettes Allergies Allergy/AdvReac Type Severity Reaction Status Date / Time clonidine AdvReac Severe SEVERE Verified 04/30/22 08:48 BRADYCARDIA Home Medications Medication Instructions Recorded Confirmed Type nitroglycerin 0.4 mg sublingual 0.4 mg sublingual UD PRN Chest 11/12/11 04/30/22 History tablet Pain ##0 coenzyme Q10 100 mg capsule 100 mg PO QPM #0 caps 10/06/15 04/30/22 History ascorbic acid (vitamin C) 500 mg 500 mg PO BID #0 tabs 08/09/16 04/30/22 History tablet multivitamin 1 tab PO QPM #0 tabs 08/09/16 04/30/22 History insulin glargine 100 unit/mL (3 10 unit subcut HS #0 Pens 08/16/16 04/30/22 History mL) subcutaneous pen (Lantus Solostar U-100 Insulin) lisinopril 40 mg tablet 40 mg PO DAILY #0 tabs 08/16/16 04/30/22 History aspirin 81 mg tablet,delayed 81 mg PO QPM 10/24/18 04/30/22 History release hydralazine 100 mg tablet 100 mg PO TID 04/29/22 04/30/22 History metoprolol succinate 25 mg 25 mg PO HS 04/29/22 04/29/22 History tablet,extended release 24 hr vitamin B complex 1 tab PO DAILY 04/30/22 04/30/22 History Patient History Medical History (Updated 04/30/22 @ 10:02 by Nishant Hope MD) CAD (coronary artery disease) s/p 3 stents (2012) Cancer BCC Carotid artery stenosis s/p right CEA (2016)/last checked 12/2018 (per vascular office visit note) with LICA 60-69% stenosis, ABIMBOLA without restenosis (monitoring/plan for repeat imaging 1 year) Chronic kidney disease stage III Diabetes mellitus, type 2 IDDM HTN (hypertension) Ischemic cardiomyopathy EF 29% on 08/31/18 LBBB (left bundle branch block) chronic dating back to at least 2016 Myocardial Infarction 2012, 2015 Pacemaker Medtronic, dual-chamber implanted 2015/last checked 03/2019 Retinopathy Sleep apnea no machine TIA (transient ischemic attack) 2016 Surgical History History of cardiac cath x2; 3 stents (2012) History of carotid endarterectomy RIGHT 08/20/16 - MAC #3, ETT# 7.5 HiLo Grade 1 History of cataract surgery BILATERAL History of herniorrhaphy UMBILICAL HERNIA REPAIR WITH MESH History of total right hip replacement Right INGRID: 09/04/18: unsuccessful spinal (2/2 bone). Decision to convert to [place] (Grade view 1, Pitts#2, ETT 8.0 at [facility]) S/P Mohs surgery for basal cell carcinoma Family History Other Family history non-contributory No family history of adverse response to anesthesia Social History Smoking Status: Never smoker Second Hand Exposure: No; Hx Alcohol Use: No Hx Substance Use: No Preferred Language: Korean Communication Ability: Effective Visual Impairment: No Limitations Material Carrier Required: No Beliefs That Will Affect Care: None marital status: Current Living Situation: Spouse Feels Safe at Home: Yes Safety Concerns: Feels Safe At This Time Assistive Devices: Glasses Assistive Devices Comment: Patient states he uses a walking stick when outside, on uneven ground. Review of Systems Review of Systems: All systems reviewed & are unremarkable except as noted in HPI & below Physical Exam Physical Exam: Constitutional: No acute distress HEENT: EOMI, PERRLA Respiratory system: Decreased air entry on the left side, no wheeze, no rhonchi, mild crackles bilateral lower lobes CVS: S1-S2 positive, no murmurs or gallops Abdomen: Soft, nontender, nondistended, positive bowel sounds x4 Extremities: +2 pulses bilaterally radialis/ dorsalis pedis, no cyanosis, no edema, +2 pitting edema bilateral lower extremity Neuro: Awake alert oriented x3 Psych: Normal mood and affect G/U: No White Skin: no rashes, warm and dry Lymphatic: no cervical or axillary lymphadenopathy Results & Data Results & Data ([facility]) Vital Signs (Past 12 Hours) Vital Signs Pulse Resp BP Pulse Ox Pulse Ox O2 Del Method O2 Del Method 04/30/22 09:00 67 20 168/96 H 97 Room Air 04/30/22 07:00 63 20 177/98 H 97 Room Air 04/30/22 00:35 63 18 164/83 H 95 Room Air 04/30/22 00:35 92 Room Air 04/29/22 23:25 76 21 171/83 H 95 Room Air Laboratory Results 04/30/22 05:40 04/30/22 05:40 PG Care Time/CCT Total # of Minutes Spent Total Time Spent with Patient: Total time spent is greater than 50% in coordination of care (as documented) at patient's floor/unit and/or counseling patient: Coding Level of Care Code 03471 Initial Inpt Care Lvl 3 Diagnoses DAMON (dyspnea on exertion) R06.09 Pleural effusion on left J90
[2022-04-30] MEDS: ISOSORBIDE DINITRATE 20 MG TAB PO SCH ×2 (12:33→18:21)
--- NOTE | 2022-04-30 17:00 | Hospitalist Progress Note ---
Date of Service April 30, 2022 Assessment & Plan (1) Acute on chronic systolic heart failure: Plan: History of ischemic cardiomyopathy with EF of 29% by echo in November 2021 presented with shortness of breath and 13 pounds weight gain over the short-term Has been receiving intravenous Lasix and feeling better Appreciate cardiology input and recommendation Has been getting Lasix 40 mg IV twice daily Monitor PRP and electrolytes (2) DAMON (dyspnea on exertion): Plan: Secondary to CHF (3) Pleural effusion on left: Plan: Has significant left pleural effusion Appreciate pulmonary input and recommendation for thoracentesis sometime this afternoon (4) Ischemic cardiomyopathy: Plan: Ischemic cardiomyopathy with documented EF of 29% in November of this year Echo is compatible with prior echocardiogram and decreased EF 20 to 25% Declined biventricular ICD in the past (5) CAD (coronary artery disease): Plan: CAD with stent placement in the past (6) HTN (hypertension): Plan: Blood pressure remains on the upper side at 145/72 Isosorbide dinitrate 20 mg 3 times daily has been added on top of home medications to control blood pressure Has been on hydralazine 100 mg 3 times daily, lisinopril 40 mg in the morning and Toprol-XL 25 mg at night Will monitor (7) Diabetes mellitus, type 2: Plan: Continue with SSI (8) Chronic kidney disease: Plan: CKD stage III Will monitor kidney function Creatinine on admission is 1.18 DVT prophylaxis On Lovenox CODE STATUS Full Admission and Anticipated Discharge Date Admission Date: April 29, 2022 Subjective 04/30/2022 The patient was seen and examined in emergency room He has been feeling much better following admission Denies any significant symptoms at rest Less shortness of breath and no chest pain and/or palpitation Review of Systems Review of Systems: All systems reviewed and are unremarkable except as noted below Physical Exam Physical Exam: Lying in bed comfortably Constitutional: + ill appearing and average body habitus Eyes: PERRL, conjunctivae normal, anicteric sclerae ENMT: external ear and nose normal, oropharynx normal Neck: trachea midline, no thyromegaly Respiratory: no respiratory distress Auscultation: + diminished lung sounds (Left side more than the right) Cardiovascular: Rate/Rhythm: regular rate and regular rhythm; not tachycardic Heart Sounds: normal S1 and normal S2; no murmur Gastrointestinal (Abdomen): Inspection/Auscultation: normal bowel sounds; abdomen not distended Percussion/Palpation: abdomen soft; abdomen nontender Musculoskeletal: No acute arthritis involving any joint Neurologic: normal touch/pain/proprioception; + does not move all extremities Psychiatric: A+Ox3, euthymic affect Lymphatic: no cervical or axillary lymphadenopathy Results & Data Results & Data ([facility]) Vital Signs (Past 12 Hours) Vital Signs Temp Pulse Pulse Resp BP BP Pulse Ox 04/30/22 16:25 68 04/30/22 14:51 36.5 C 63 16 145/72 H 97 04/30/22 12:30 65 16 04/30/22 12:30 159/84 H 04/30/22 12:20 63 22 04/30/22 12:10 60 15 04/30/22 12:00 66 21 04/30/22 12:00 147/84 H 04/30/22 11:50 64 22 04/30/22 11:40 68 18 04/30/22 11:30 60 15 04/30/22 11:30 154/76 H 04/30/22 11:20 68 15 04/30/22 11:10 61 15 04/30/22 11:00 60 14 04/30/22 11:00 158/83 H 04/30/22 10:50 66 18 04/30/22 10:40 69 18 04/30/22 10:30 65 15 04/30/22 10:30 160/75 H 04/30/22 10:20 66 16 04/30/22 10:10 66 19 04/30/22 10:00 67 22 04/30/22 10:00 156/78 H 04/30/22 09:50 68 22 04/30/22 09:40 66 18 04/30/22 09:30 68 22 04/30/22 09:25 81 25 H 04/30/22 09:10 72 22 04/30/22 09:00 67 19 04/30/22 09:00 164/82 H 04/30/22 08:50 63 19 04/30/22 08:40 68 13 04/30/22 08:30 61 18 04/30/22 08:30 172/80 H 04/30/22 08:20 60 13 04/30/22 08:10 60 10 L 04/30/22 08:00 63 16 04/30/22 08:00 163/84 H 04/30/22 07:50 77 18 04/30/22 07:40 70 20 04/30/22 07:30 73 21 94 04/30/22 07:30 177/98 H 04/30/22 07:26 83 15 04/30/22 07:26 177/103 H 04/30/22 05:00 64 18 04/30/22 04:50 62 16 04/30/22 09:00 67 20 168/96 H 97 04/30/22 07:00 63 20 177/98 H 97 O2 Del Method 04/30/22 16:25 04/30/22 14:51 Room Air 04/30/22 12:30 04/30/22 12:30 04/30/22 12:20 04/30/22 12:10 04/30/22 12:00 04/30/22 12:00 04/30/22 11:50 04/30/22 11:40 04/30/22 11:30 04/30/22 11:30 04/30/22 11:20 04/30/22 11:10 04/30/22 11:00 04/30/22 11:00 04/30/22 10:50 04/30/22 10:40 04/30/22 10:30 04/30/22 10:30 04/30/22 10:20 04/30/22 10:10 04/30/22 10:00 04/30/22 10:00 04/30/22 09:50 04/30/22 09:40 04/30/22 09:30 04/30/22 09:25 04/30/22 09:10 04/30/22 09:00 04/30/22 09:00 04/30/22 08:50 04/30/22 08:40 04/30/22 08:30 04/30/22 08:30 04/30/22 08:20 04/30/22 08:10 04/30/22 08:00 04/30/22 08:00 04/30/22 07:50 04/30/22 07:40 04/30/22 07:30 04/30/22 07:30 04/30/22 07:26 04/30/22 07:26 04/30/22 05:00 04/30/22 04:50 04/30/22 09:00 Room Air 04/30/22 07:00 Room Air Laboratory Results Short CBC 04/30/22 Range/Units 05:40 WBC 5.58 (4.8-10.8) K/ul Hgb 10.4 L (14.0-18.0) g/dl Hct 31.9 L (40.1-51.0) % Plt Count 198 (130-400) K/uL BMP 04/29/22 04/30/22 16:20 05:40 Sodium 138 137 Potassium 3.5 3.4 L Chloride 101 98 Carbon Dioxide 25 28 BUN 24 H 25 H Creatinine 1.18 1.22 Glucose 66 L 146 H Calcium 9.0 8.7 Liver Function 04/29/22 Range/Units 16:20 Total Bilirubin 1.0 (0.2-1.0) mg/dl AST 17 (13-39) U/L ALT 8 (7-52) U/L Alkaline Phosphatase 69 (34-104) U/L Albumin 3.6 (3.4-5.0) gm/dl Urine 04/29/22 Range/Units 18:40 Urine Color Yellow Urine Appearance Clear (Clear) Urine pH 5.0 (4.5-7.5) Ur Specific [place] 1.013 (1.000-1.030) Urine Protein 2+ H (Negative) Urine Glucose (UA) Negative (Negative) Medications Administered Current Inpatient Medications Acetaminophen (Acetaminophen 325 Mg Tab) 650 mg PO Q4H PRN PRN Reason: Pain or Fever Stop: 05/30/22 00:34 Aspirin (Aspirin 81 Mg Ectab) 81 mg PO DAILY GABRIELA Stop: 05/30/22 08:59 Last Admin: 04/30/22 09:47 Dose: 81 mg Furosemide (Furosemide 40 Mg/4 Ml Vial) 40 mg IV BID17 GABRIELA Stop: 05/30/22 08:59 Last Admin: 04/30/22 09:48 Dose: 40 mg Hydralazine HCl (Hydralazine Tab 50 Mg Tab) 100 mg PO TID GABRIELA Stop: 05/30/22 08:59 Last Admin: 04/30/22 16:08 Dose: 100 mg Insulin Aspart (Insulin Aspart Per Unit) 0 units SC ACHS GABRIELA Stop: 05/30/22 07:29 Last Admin: 04/30/22 12:28 Dose: 3 units Insulin Glargine (Lantus Per Unit Charge) 5 units SQ [facility] Stop: 05/30/22 20:59 Isosorbide Dinitrate (Isosorbide Dinitrate 20 Mg Tab) 20 mg PO TID@0700,1200,1700 [facility] Stop: 05/30/22 11:59 Last Admin: 04/30/22 12:33 Dose: 20 mg Lisinopril (Lisinopril 40 Mg Tab) 40 mg PO QAM [facility] Stop: 05/30/22 08:59 Last Admin: 04/30/22 09:49 Dose: 40 mg Metoprolol Succinate (Metoprolol Succ 25mg Ext Rel Tab) 25 mg PO [facility] Stop: 05/30/22 20:59 Multivitamins (Multivitamin Tab) 1 tab PO [facility] Stop: 05/30/22 20:59 Nitroglycerin (Nitroglycerin Sl 0.4 Mg/Tab Tab) 0.4 mg SL Q5M PRN PRN Reason: Chest Pain Stop: 05/30/22 00:34 Polyethylene Glycol (Polyethylene (Miralax) 17 Gm Pack) 17 gm PO DAILY PRN PRN Reason: Constipation Stop: 05/30/22 00:34 Vitamin B Complex (Vitamin B Complex Tab) [facility] [place] Stop: 05/30/22 08:59 Last Admin: 04/30/22 09:48 Dose: 1 tab
--- NOTE | 2022-04-30 18:11 | XRay Report ---
XR chest 1V portable CLINICAL HISTORY: post thoracentesis COMPARISON STUDY: Chest radiograph April 29, 2022. FINDINGS: There is no pneumothorax following left thoracentesis. Left pleural effusion has significan tly decreased in size. Residual left pleural effusion is noted with left lung airspace opacity. A danica l-lead left subclavian pacer is in place. IMPRESSION: 1. No pneumothorax following left thoracentesis. 2. Significant decrease in size of the left pleural effusion. Residual left pleural effusion with non specific left basilar opacity. ACT 112: Negative or not required by law. Electronically signed by: Lonnie Talbot M.D. 04/30/2022 6:10 PM
--- NOTE | 2022-04-30 19:21 | Procedure Note ---
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 Rachel Carty Indication: Left-sided pleural effusion Consent: Signed by patient and verified with timeout prior to procedure Anesthesia: 1% lidocaine without epinephrine local. Procedure: Consent was verified and timeout performed. Appropriate imaging studies were reviewed prior to the procedure. Patient was placed in a seated position and limited thoracic ultrasound was performed of the left chest. See separate imaging. Appropriate site above the diaphragm for thoracentesis was selected. The skin was prepped and draped in no rmal sterile fashion. Lidocaine was used for local analgesia. Fluid was aspirated via the finder needle. A small skin jacinda was made with the scalpel and the catheter over the needle apparatus was advanced over the rib into the pleural space. Using the syringe one-way valve system, a total of 1850 mL's of serous fluid was removed. The catheter was removed and observed to be intact. A sterile dressing was applied. Post procedure chest x-ray was ordered. Good lung sliding was appreciated postprocedure on ultrasound. Small residual pleural effusion was still present Fluid was sent for labs, culture and cytology. Bedside ultrasound: Lungs:- Patient also has small right-sided pleural effusion. There was dependent atelectasis appreciated bilateral lower lobes, B-lines posteriorly, a lines anteriorly bilaterally Complications: None Blood loss: Less than 1 cc Coding CPT Codes Pulmonary/Thoracic - Pulmonary and Thoracic: 17245 Thoracentesis w imaging ([id number]) Pulmonary/Thoracic - Pulmonary and Thoracic: 31403 US, Chest, real time with imaging documentation ([id number]) [facility] Procedure Codes (Charges) Pulmonary/Thoracic Procedure 1: Pulmonary and Thoracic: 89894 Thoracentesis w imaging Procedure 2: Pulmonary and Thoracic: 99794 US, Chest, real time with imaging documentation
[2022-04-30 20:02] LABS: Appearance Pleural Fluid Clear; Color Pleural Fluid Yellow; RBC Pleural Fluid Auto < 2000 /uL; Source Pleural Fluid Left Lung; WBC Pleural Fluid Auto 26 /uL
[2022-04-30 20:07] LABS: Amylase Pleural Fluid 21 U/L; Glucose Pleural Fluid 148 mg/dl; LDH Pleural Fluid 71 U/L; Total Protein Pleural Fluid < 3.0 gm/dl
[2022-04-30 20:13] LABS: Albumin Level 3.1 gm/dl (3.4-5.0); Bilirubin,Total 0.7 mg/dl (0.2-1.0); Total Protein 5.6 gm/dl (6.0-8.3)
[2022-04-30] MEDS: METOPROLOL SUCC 25MG EXT REL TAB PO SCH (20:13)
[2022-04-30] MEDS: MULTIVITAMIN TAB PO SCH (20:14)
[2022-04-30] MEDS: LANTUS PER UNIT CHARGE SQ SCH (20:18)
[2022-04-30 20:40] LABS: Eosinophils, Fluid 0 %; Lymphocytes, Fluid 49 %; Mono,Macrophage,Mesothelial 48 %; Neutrophils, Fluid 3 %
[2022-04-30] MEDS ORDERED: METOPROLOL TARTRATE 25 MG TAB PO SCH (21:00)
[2022-05-01] MEDS: ISOSORBIDE DINITRATE 20 MG TAB PO SCH (06:17)
--- NOTE | 2022-05-01 07:27 | Pulmonology Progress Note ---
Date of Service May 01, 2022 Assessment & Plan (1) DAMON (dyspnea on exertion): (2) Pleural effusion on left: Plan Chest x-ray 04/21/2022 personally viewed: Portable film, large left-sided pleural effusion, right costophrenic and cardiophrenic infection, increased cardiac silhouette -- Left-sided pleural effusion New compared to before Under etiology is most likely CHF Never had thoracentesis done in the past 13 pounds weight gain S/p left-sided thoracentesis 04/30/2022 :-1850 mL, transudative as per lights criteria Repeat thoracentesis 05/01/2022:- 350 mL Pleural fluid: LDH 71, total protein less than 3, pH 7.44 Serum: LDH 142, total protein 5.6 COVID-19 NAAT negative --Shortness of breath Secondary to above Plan: Chest x-ray from today still shows left-sided pleural effusion S/p repeat thoracentesis left-sided, follow-up chest x-ray Continue with diuresis Case was discussed with Dr. Cardenas Please note the above document was generated using voice recognition software. It may contain grammatical, syntax or spelling errors.Any formal questions or concerns about the content, text or information contained within the body of this dictation should be directly addressed to the provider for clarification. Admission and Anticipated Discharge Date Admission Date: April 29, 2022 Subjective Patient seen and examined at bedside. No acute distress, no adverse events overnight Shortness of breath is better compared to yesterday. Denies any chest pain, no headache, no nausea, no vomiting. Fair appetite Review of Systems Review of Systems: All systems reviewed & are unremarkable except as noted in Subjective Physical Exam Physical Exam: Constitutional: No acute distress HEENT: EOMI, PERRLA Respiratory system: Decreased air entry on the left side, no wheeze, no rhonchi, mild crackles bilateral lower lobes CVS: S1-S2 positive, no murmurs or gallops Abdomen: Soft, nontender, nondistended, positive bowel sounds x4 Extremities: +2 pulses bilaterally radialis/ dorsalis pedis, no cyanosis, no edema, +2 pitting edema bilateral lower extremity Neuro: Awake alert oriented x3 Psych: Normal mood and affect G/U: No White Skin: no rashes, warm and dry Lymphatic: no cervical or axillary lymphadenopathy Results & Data Results & Data ([facility]) Vital Signs (Past 12 Hours) Vital Signs Temp Pulse Pulse Pulse Resp BP Pulse Ox 05/01/22 03:40 36.6 C 67 18 147/78 H 97 05/01/22 00:13 88 04/30/22 22:42 36.5 C 65 18 122/63 96 04/30/22 19:57 36.5 C 67 20 126/62 94 O2 Del Method 05/01/22 03:40 Room Air 05/01/22 00:13 04/30/22 22:42 Room Air 04/30/22 19:57 Room Air Laboratory Results 04/30/22 05:40 04/30/22 05:40 PG Care Time/CCT Total # of Minutes Spent Total Time Spent with Patient: Total time spent is greater than 50% in coordination of care (as documented) at patient's floor/unit and/or counseling patient: Coding Level of Care Code 73158 Subseq Hosp Care Lvl 2 Diagnoses DAMON (dyspnea on exertion) R06.09 Pleural effusion on left J90
[2022-05-01 08:19] LABS: Basophils # (auto) 0.03 K/uL (0-0.2); Basophils % (auto) 0.3 %; Eosinophils # (auto) 0.01 K/uL (0-0.50); Eosinophils % (auto) 0.1 %; Hematocrit (blood only) 28.6 % (40.1-51.0); Hemoglobin 9.2 g/dl (14.0-18.0); Immature Granulocytes # (auto) 0.05 K/uL (0.00-0.02); Immature Granulocytes % (auto) 0.5 %; Lymphocytes # (auto) 0.59 K/uL (1.2-3.4); Lymphocytes % (auto) 6.1 %; Mean Corpuscular Hemoglobin 25.4 pg (25.0-34.0); Mean Corpuscular Hgb Conc 32.2 g/dL (32.0-36.0); Mean Platelet Volume 9.9 fL (9.4-12.4); Monocytes # (auto) 1.03 K/uL (0.24-0.82); Monocytes % (auto) 10.7 %; Neutrophils # (auto) 7.93 K/uL (1.4-6.5); Neutrophils % (auto) 82.3 %; Platelet Count 200 K/uL (130-400); RDW Standard Deviation 43.3 fL (36.4-46.3); Red Blood Count 3.62 M/uL (4.63-6.08); White Blood Count 9.64 K/ul (4.8-10.8)
[2022-05-01 08:35] LABS: BUN Creatinine Ratio 23.9 (10-20); Calcium 8.4 mg/dl (8.5-10.1); Creatinine Clr Calc Pharmacy 37.8 ml/min; Est GFR (African American) 53.3 ml/min; Magnesium 1.5 mg/dl (1.7-2.4)
--- NOTE | 2022-05-01 08:51 | XRay Report ---
SINGLE VIEW CHEST CLINICAL HISTORY: Pleural effusion. FINDINGS: An AP, portable, upright chest radiograph is compared to study dated 04/30/2022. A 2-lead c ardiac pacemaker is unchanged in position. The heart is enlarged noting atherosclerotic calcification of the thoracic aorta. The pulmonary vasculature is noncongested. There is a layering left pleural e ffusion with associated left basilar consolidation. This appears modestly increased from yesterday. M inimal opacities at the right lung base and there is trace right pleural effusion. No pneumothorax is seen. The skeletal structures are osteopenic. The bony thorax is grossly intact. IMPRESSION: 1. Cardiomegaly and cardiac pacemaker without radiographic evidence of congestive failure. 2. Layering left pleural effusion with dependent consolidation. This appears modestly increased in si ze from yesterday. 3. There is trace right pleural effusion with right basilar opacities. ACT 112: Negative or not required by law. Electronically signed by: Den Chu M.D. 05/01/2022 8:50 AM
[2022-05-01] MEDS: lisinopril 40 MG TAB PO SCH (09:00)
[2022-05-01] MEDS: VITAMIN B COMPLEX TAB PO SCH (09:00)
[2022-05-01] MEDS: hydrALAZINE TAB 50 MG TAB PO SCH ×3 (09:00→20:50)
[2022-05-01] MEDS: ASPIRIN 81 MG ECTAB PO SCH (09:00)
[2022-05-01] MEDS: FUROSEMIDE 40 MG/4 ML VIAL IV SCH (09:01)
[2022-05-01] MEDS: INSULIN ASPART PER UNIT SC SCH ×4 (09:04→20:50)
--- NOTE | 2022-05-01 10:43 | Cardiology Progress Note ---
Date of Service May 01, 2022 Assessment & Plan (1) Acute on chronic systolic heart failure: (2) Ischemic cardiomyopathy: (3) Pleural effusion on left: (4) SSS (sick sinus syndrome): Plan Patient is an 87-year-old male with known ischemic cardiomyopathy with severe LV dysfunction and chronic systolic heart failure with reduced ejection fraction. Patient with transient decompensation earlier this summer relieved by diuretics. Patient has had a lapse in diuretic therapy. Presents now with signs and symptoms of decompensated congestive heart failure with a very large left pleural effusion. Past chest x-ray December 14, 2001 moderate-sized pleural effusion Recommendations: 1. Acute on chronic decompensated systolic heart failure: IV furosemide has been ordered patient otherwise on guideline directed regimen. Patient appears to be responding to diuretics.Will follow renal function consider spironolactone addition 2. Very large left pleural effusion: We will consult pulmonology as patient may benefit symptomatically from thoracentesis. We will hold Lovenox 3. Severe ischemic cardiomyopathy: Initial review of echocardiogram preliminary images demonstrates severe LV dysfunction in a pattern consistent with prior echocardiograms EF 20%. There is severe tricuspid insufficiency with elevated pulmonary pressures. Patient in the past has declined upgrade to BiV ICD. We will need to revisit and discuss CODE STATUS as well given prior preferences of conservative therapy 4. Hypertension: Continue prehospital medications. Add isosorbide dinitrate 20 mg 3 times daily in addition to hydralazine and lisinopril 05/01/2022 Patient substantially improved after thoracentesis and diuresis. Will hold IV furosemide after a.m. dose today anticipate a.m. dose of 40 mg p.o. daily Add spironolactone 12.5 mg p.o. daily Increase isosorbide dinitrate to 40 mg 3 times daily Increase activity in hospital, possible discharge in a.m. if clinically improving Admission and Anticipated Discharge Date Admission Date: April 29, 2022 Subjective Patient seen and examined, chart, medications, telemetry reviewed Feels dramatically improved following thoracentesis yesterday, diuresis. He notes multiple unmeasured voids. Weight now approaching baseline dry weight. Down 6 kg He notes no dizziness or lightheadedness no chest pain No arrhythmias on telemetry Physical Exam Constitutional: WD/WN, vitals as above Eyes: PERRL, conjunctivae normal, anicteric sclerae ENMT: external ear and nose normal, oropharynx normal Neck: trachea midline, no thyromegaly Respiratory: no respiratory distress Auscultation: + diminished lung sounds (Markedly improved aeration left lung field) Cardiovascular: Rate/Rhythm: regular rate and regular rhythm Extremities: + edema (Trace only with resolved with prior finding) Chest (Breasts): Chest: + pacemaker Gastrointestinal (Abdomen): normal bowel sounds, soft, nontender, no hepatosplenomegaly Musculoskeletal: no cyanosis or clubbing, extremities motor strength 5/5 Results & Data ([facility]) Vital Signs (Past 12 Hours) Vital Signs Temp Pulse Pulse Resp BP Pulse Ox O2 Del Method 05/01/22 06:33 62 05/01/22 07:00 36.4 C L 71 18 147/67 H 93 Room Air 05/01/22 03:40 36.6 C 67 18 147/78 H 97 Room Air 05/01/22 00:13 88 04/30/22 22:42 36.5 C 65 18 122/63 96 Room Air Laboratory Results Laboratory Results - last 24 hr 04/30/22 04/30/22 04/30/22 05:40 11:14 11:57 WBC RBC Hgb Hct MCV MCH MCHC RDW Std Deviation RDW Coeff of Anderson Plt Count MPV Immature Gran % (Auto) Neut % (Auto) Lymph % (Auto) [place] % (Auto) Eos % (Auto) Baso % (Auto) Neut # (Auto) Lymph # (Auto) [place] # (Auto) Eos # (Auto) Baso # (Auto) Immature Gran # (Auto) Sodium Potassium Chloride Carbon Dioxide Anion Gap BUN Creatinine Est Cr Clr Drug Dosing Est GFR ( Amer) Est GFR (Non-Af Amer) BUN/Creatinine Ratio Glucose POC Glucose 223 H Calcium Magnesium Total Bilirubin Lactate Dehydrogenase Troponin I High Sens 64.9 H* B-Natriuretic Peptide 4337 H Total Protein Albumin Fluid Neutrophils % Fluid Lymphocytes % Fluid Eosinophils % Fluid Meso/Macro/[place] % Fluid Comment Pleural Fluid Source Pleural Color Pleural Appearance Pleural pH Pleural WBC (Auto) Pleural WBC Pleural RBC (Auto) Pleural RBC Pleural Total Protein Pleural LDH Pleural Glucose Pleural Amylase Pleural Cholesterol 04/30/22 04/30/22 04/30/22 16:34 17:40 17:40 WBC RBC Hgb Hct MCV MCH MCHC RDW Std Deviation RDW Coeff of Anderson Plt Count MPV Immature Gran % (Auto) Neut % (Auto) Lymph % (Auto) [place] % (Auto) Eos % (Auto) Baso % (Auto) Neut # (Auto) Lymph # (Auto) [place] # (Auto) Eos # (Auto) Baso # (Auto) Immature Gran # (Auto) Sodium Potassium Chloride Carbon Dioxide Anion Gap BUN Creatinine Est Cr Clr Drug Dosing Est GFR ( Amer) Est GFR (Non-Af Amer) BUN/Creatinine Ratio Glucose POC Glucose 162 H Calcium Magnesium Total Bilirubin Lactate Dehydrogenase Troponin I High Sens B-Natriuretic Peptide Total Protein Albumin Fluid Neutrophils % 3 Fluid Lymphocytes % 49 Fluid Eosinophils % 0 Fluid [place]/Macro/[place] % 48 Fluid Comment Pleural Fluid Source Left Lung Pleural Color Yellow Pleural Appearance Clear Pleural pH 7.44 H Pleural WBC (Auto) 26 Pleural WBC Not Reportable Pleural RBC (Auto) < 2000 Pleural RBC Not Reportable Pleural Total Protein Pleural LDH Pleural Glucose Pleural Amylase Pleural Cholesterol 04/30/22 04/30/22 04/30/22 17:40 17:40 19:37 WBC RBC Hgb Hct MCV MCH MCHC RDW Std Deviation RDW Coeff of Anderson Plt Count MPV Immature Gran % (Auto) Neut % (Auto) Lymph % (Auto) [place] % (Auto) Eos % (Auto) Baso % (Auto) Neut # (Auto) Lymph # (Auto) [place] # (Auto) Eos # (Auto) Baso # (Auto) Immature Gran # (Auto) Sodium Potassium Chloride Carbon Dioxide Anion Gap BUN Creatinine Est Cr Clr Drug Dosing Est GFR ( Amer) Est GFR (Non-Af Amer) BUN/Creatinine Ratio Glucose POC Glucose Calcium Magnesium Total Bilirubin Lactate Dehydrogenase 142 Troponin I High Sens B-Natriuretic Peptide Total Protein Albumin Fluid Neutrophils % Fluid Lymphocytes % Fluid Eosinophils % Fluid [place]/Macro/[place] % Fluid Comment Pleural Fluid Source Pleural Color Pleural Appearance Pleural pH Pleural WBC (Auto) Pleural WBC Pleural RBC (Auto) Pleural RBC Pleural Total Protein < 3.0 Pleural LDH 71 Pleural Glucose 148 Pleural Amylase 21 Pleural Cholesterol Pending 04/30/22 04/30/22 05/01/22 19:37 20:12 07:21 WBC RBC Hgb Hct MCV MCH MCHC RDW Std Deviation RDW Coeff of Anderson Plt Count MPV Immature Gran % (Auto) Neut % (Auto) Lymph % (Auto) [place] % (Auto) Eos % (Auto) Baso % (Auto) Neut # (Auto) Lymph # (Auto) [place] # (Auto) Eos # (Auto) Baso # (Auto) Immature Gran # (Auto) Sodium Potassium Chloride Carbon Dioxide Anion Gap BUN Creatinine Est Cr Clr Drug Dosing Est GFR ( Amer) Est GFR (Non-Af Amer) BUN/Creatinine Ratio Glucose POC Glucose 181 H 108 H Calcium Magnesium Total Bilirubin 0.7 Lactate Dehydrogenase Troponin I High Sens B-Natriuretic Peptide Total Protein 5.6 L Albumin 3.1 L Fluid Neutrophils % Fluid Lymphocytes % Fluid Eosinophils % Fluid [place]/Macro/[place] % Fluid Comment Pleural Fluid Source Pleural Color Pleural Appearance Pleural pH Pleural WBC (Auto) Pleural WBC Pleural RBC (Auto) Pleural RBC Pleural Total Protein Pleural LDH Pleural Glucose Pleural Amylase Pleural Cholesterol 05/01/22 05/01/22 07:49 07:49 WBC 9.64 RBC 3.62 L Hgb 9.2 L Hct 28.6 L MCV 79.0 L MCH 25.4 MCHC 32.2 RDW Std Deviation 43.3 RDW Coeff of Anderson 15.0 H Plt Count 200 MPV 9.9 Immature Gran % (Auto) 0.5 Neut % (Auto) 82.3 Lymph % (Auto) 6.1 [place] % (Auto) 10.7 Eos % (Auto) 0.1 Baso % (Auto) 0.3 Neut # (Auto) 7.93 H Lymph # (Auto) 0.59 L [place] # (Auto) 1.03 H Eos # (Auto) 0.01 Baso # (Auto) 0.03 Immature Gran # (Auto) 0.05 H Sodium 139 Potassium 3.0 L Chloride 97 L Carbon Dioxide 32 Anion Gap 10 BUN 33 H Creatinine 1.38 Est Cr Clr Drug Dosing 37.8 Est GFR ( Amer) 53.3 Est GFR (Non-Af Amer) 46.0 BUN/Creatinine Ratio 23.9 H Glucose 101 H POC Glucose Calcium 8.4 L Magnesium 1.5 L Total Bilirubin Lactate Dehydrogenase Troponin I High Sens B-Natriuretic Peptide Total Protein Albumin Fluid Neutrophils % Fluid Lymphocytes % Fluid Eosinophils % Fluid [place]/Macro/[place] % Fluid Comment Pleural Fluid Source Pleural Color Pleural Appearance Pleural pH Pleural WBC (Auto) Pleural WBC Pleural RBC (Auto) Pleural RBC Pleural Total Protein Pleural LDH Pleural Glucose Pleural Amylase Pleural Cholesterol
[2022-05-01] MEDS: POTASSIUM CHLORIDE CRTAB 20 MEQ TABCR PO SCH ×2 (11:09→13:46)
[2022-05-01] MEDS: MAGNESIUM SULFATE / D5W 1 GM/100 ML BAG IV SCH ×3 (11:10→14:52)
[2022-05-01] MEDS: ISOSORBIDE DINITRATE 40 MG TAB PO SCH ×2 (11:57→17:15)
[2022-05-01] MEDS: SPIRONOLACTONE 12.5 MG TAB PO SCH (11:57)
--- NOTE | 2022-05-01 14:47 | Procedure Note ---
Procedure Note Date of Service May 01, 2022 Note Procedure: Diagnostic therapeutic ultrasound-guided catheter thoracentesis Vice President Of [employer]: Dr. Rachel Carty Indication: Left-sided pleural effusion Consent: Signed by patient and verified with timeout prior to procedure Anesthesia: 1% lidocaine without epinephrine local. Procedure: Consent was verified and timeout performed. Appropriate imaging studies were reviewed prior to the procedure. Patient was placed in a seated position and limited thoracic ultrasound was performed of the left chest. See separate imaging. Appropriate site above the diaphragm for thoracentesis was selected. The skin was prepped and draped in no rmal sterile fashion. Lidocaine was used for local analgesia. Fluid was aspirated via the finder needle. A small skin jacinda was made with the scalpel and the catheter over the needle apparatus was advanced over the rib into the pleural space. Using the syringe one-way valve system, a total of 350 mL's of serous fluid was removed. The catheter was removed and observed to be intact. A sterile dressing was applied. Post procedure chest x-ray was ordered. Patient seems to have a lot of fibrin strands now visible on the ultrasound. Fibrin strands were also aspirated in the pleural fluid Complications: None Blood loss: None Coding CPT Codes Pulmonary/Thoracic - Pulmonary and Thoracic: 64149 Thoracentesis w imaging ([id number]) [facility] [place] Procedure Codes (Charges) Pulmonary/Thoracic Procedure 1: Pulmonary and Thoracic: 64604 Thoracentesis w imaging
--- NOTE | 2022-05-01 15:32 | XRay Report ---
XR chest 1V portable HISTORY: 87 years-old Male s/p thora follow-up study in a patient with pleural effusion and thoracen tesis. COMPARISON: Chest radiograph of same day at 7:47 AM TECHNIQUE: AP view of the chest FINDINGS: Cardiac silhouette is enlarged. Left subclavian pacer. Mildly decreased size of the left pleural effu kalyn status post thoracentesis. No postprocedural pneumothorax identified. Perivascular congestion ag ain noted. Trace right pleural effusion. Persistent left basilar consolidation. Bones appear grossly intact. IMPRESSION: Mildly decreased size of the left pleural effusion status post thoracentesis. No postproc edural pneumothorax identified. ACT 112: Negative or not required by law. The above report was generated using voice recognition software. It may contain grammatical, syntax o r spelling errors. Electronically signed by: Miguel Reed M.D. 05/01/2022 3:30 PM
--- NOTE | 2022-05-01 16:51 | Hospitalist Progress Note ---
Date of Service May 01, 2022 Assessment & Plan (1) Acute on chronic systolic heart failure: Plan Acute on chronic systolic heart failure: Dyspnea on exertion Has history of ischemic cardiomyopathy with EF of 29% by echo in November 2021 Presented with shortness of breath and 13 pounds weight gain over the short- term. Cardiology on board, managing diuresis, currently on IV Lasix. Plan for p.o. Lasix from tomorrow. Monitor and replete electrolytes as appropriate. Repleted potassium magnesium today. Left pleural effusion: Chest x-ray with large left-sided pleural effusion, most likely secondary to CHF. Status post left-sided thoracentesis 04/30 with 1.85 L of transudative fluid taken. Further thoracentesis 05/01 with 350 mL taken. Follow-up pleural fluid studies and culture. Pulmonology on board, appreciate recommendation. Follow-up chest x-ray. Continue with diuresis. Discussed with pulmonology. History of ischemic cardiomyopathy: with documented EF of 29% in November of this year, echo compatible with prior echocardiogram and decreased EF of 20 to 25%. Has declined biventricular ICD in the past. Other chronic medical conditions: CAD with stent, HTN, DM type II, CKD stage III --> home meds as able DVT prophylaxis: On Lovenox CODE STATUS: Full code Disposition: PT/OT, CM to assist with DC planning. Admission and Anticipated Discharge Date Admission Date: April 29, 2022 Subjective Patient seen and examined at bedside as a follow-up of acute on chronic systolic heart failure, dyspnea on exertion, left pleural effusion. Patient was in bed, on room air, denies any new acute event overnight, reports eating okay and moving bowels okay, reports feeling better and breathing better, denies any fever/chills, denies any dizziness or headache, denies other review of symptoms. Physical Exam Physical Exam: GENERAL: Alert and oriented x3. NAD, on RA. HEENT: No pallor, no icterus. Pupils equal, round and reactive to light. Oral mucosa moist. NECK: No JVD, no neck masses. HEART: S1 and S2 heard. Regular rate and rhythm. No murmur, no gallop. RESPIRATORY SYSTEM: Normal AP diameter. No accessory muscle use. No wheezing, no crackles. Lt lung decreased breath sounds mid to basal. ABDOMEN: Soft, bowel sounds present, nontender, no distention. CENTRAL NERVOUS SYSTEM: No facial droop. Speech is clear. Obeys simple commands. Moves extremities. EXTREMITIES: No edema, no erythema seen. Results & Data Results & Data ([facility]) Vital Signs (Past 12 Hours) Vital Signs Temp Pulse Pulse Resp BP Pulse Ox O2 Del Method 05/01/22 15:43 36.6 C 60 18 124/53 L 95 Room Air 05/01/22 08:58 Room Air 05/01/22 12:09 36.6 C 61 16 150/73 H 94 Room Air 05/01/22 06:33 62 05/01/22 07:00 36.4 C L 71 18 147/67 H 93 Room Air
[2022-05-01] MEDS: METOPROLOL SUCC 25MG EXT REL TAB PO SCH (20:50)
[2022-05-01] MEDS: MULTIVITAMIN TAB PO SCH (20:50)
[2022-05-01] MEDS: LANTUS PER UNIT CHARGE SQ SCH (20:50)
[2022-05-02 06:25] LABS: Hemoglobin 8.5 g/dl (14.0-18.0); Mean Corpuscular Hemoglobin 25.5 pg (25.0-34.0); Mean Corpuscular Hgb Conc 32.7 g/dL (32.0-36.0); Mean Corpuscular Volume 78.1 fL (80.0-100.0); Mean Platelet Volume 9.8 fL (9.4-12.4); Platelet Count 166 K/uL (130-400); RDW Coefficient of Variation 14.9 % (11.5-14.5); RDW Standard Deviation 41.8 fL (36.4-46.3); Red Blood Count 3.33 M/uL (4.63-6.08); White Blood Count 7.54 K/ul (4.8-10.8)
[2022-05-02 06:44] LABS: BUN Creatinine Ratio 24.1 (10-20); Creatinine Clr Calc Pharmacy 32.3 ml/min; Est GFR (African American) 53.7 ml/min; Est GFR (Non-African American) 46.4 ml/min; Phosphorus 3.5 mg/dl (2.5-4.9); Potassium 3.4 mmol/L (3.5-5.1)
[2022-05-02] MEDS ORDERED: POTASSIUM CHLORIDE CRTAB 20 MEQ TABCR PO STA (08:08)
[2022-05-02] MEDS: hydrALAZINE TAB 50 MG TAB PO SCH ×2 (08:36→14:30)
[2022-05-02] MEDS: lisinopril 40 MG TAB PO SCH (08:36)
[2022-05-02] MEDS: SPIRONOLACTONE 12.5 MG TAB PO SCH (08:37)
[2022-05-02] MEDS: VITAMIN B COMPLEX TAB PO SCH (08:37)
[2022-05-02] MEDS: ASPIRIN 81 MG ECTAB PO SCH (08:37)
[2022-05-02] MEDS: ISOSORBIDE DINITRATE 40 MG TAB PO SCH ×3 (08:38→17:38)
[2022-05-02] MEDS: INSULIN ASPART PER UNIT SC SCH ×3 (08:39→17:29)
--- NOTE | 2022-05-02 08:40 | XRay Report ---
XR chest 1V portable HISTORY: Status post thoracentesis. Follow-up pleural effusion. COMPARISON: Chest 05/01/2022. FINDINGS: There is a partially loculated small to moderate left pleural effusion, unchanged. Left bas ilar airspace opacities persist. No definite pneumothorax. Mild dependent changes seen at the right l narayan base. There is mild central pulmonary vascular congestion without overt edema. The heart remains enlarged. Is left-sided dual-chamber pacemaker. IMPRESSION: 1. No change in the partially loculated small to moderate left pleural effusion. 2. No definite pneumothorax. ACT 112: Negative or not required by law. Electronically signed by: Arcadio Blackmon M.D. 05/02/2022 8:38 AM
[2022-05-02] MEDS ORDERED: FUROSEMIDE 40 MG TAB PO SCH (09:00)
--- NOTE | 2022-05-02 10:10 | Cardiology Progress Note ---
Date of Service May 02, 2022 Assessment & Plan (1) Acute on chronic systolic heart failure: (2) Ischemic cardiomyopathy: (3) Pleural effusion on left: (4) SSS (sick sinus syndrome): Plan Patient is an 87-year-old male with known ischemic cardiomyopathy with severe LV dysfunction and chronic systolic heart failure with reduced ejection fraction. Patient with transient decompensation earlier this summer relieved by diuretics. Patient has had a lapse in diuretic therapy. Presents now with signs and symptoms of decompensated congestive heart failure with a very large left pleural effusion. Past chest x-ray December 14, 2001 moderate-sized pleural effusion Recommendations: 1. Acute on chronic decompensated systolic heart failure: IV furosemide has been ordered patient otherwise on guideline directed regimen. Patient appears to be responding to diuretics.Will follow renal function consider spironolactone addition 2. Very large left pleural effusion: We will consult pulmonology as patient may benefit symptomatically from thoracentesis. We will hold Lovenox 3. Severe ischemic cardiomyopathy: Initial review of echocardiogram preliminary images demonstrates severe LV dysfunction in a pattern consistent with prior echocardiograms EF 20%. There is severe tricuspid insufficiency with elevated pulmonary pressures. Patient in the past has declined upgrade to BiV ICD. We will need to revisit and discuss CODE STATUS as well given prior preferences of conservative therapy 4. Hypertension: Continue prehospital medications. Add isosorbide dinitrate 20 mg 3 times daily in addition to hydralazine and lisinopril 05/02/2022 Patient substantially improved after thoracentesis and diuresis. Plan to continue oral diuretics post hospital discharge. Medications ordered with furosemide 40 mg p.o. daily and spironolactone 12.5 mg/day Will need to follow-up with cardiology 1 to 2 weeks Possible rediscussion of BiV pacer defibrillator Admission and Anticipated Discharge Date Admission Date: April 29, 2022 Subjective Patient seen and examined, chart, medications, telemetry reviewed. Feels improved this morning no dyspnea. No chest pain. No bleeding difficulties. Tolerated thoracentesis x2. Review of Systems Review of Systems: All systems reviewed & are unremarkable except as noted in Subjective Physical Exam Constitutional: WD/WN, vitals as above Eyes: PERRL, conjunctivae normal, anicteric sclerae ENMT: external ear and nose normal, oropharynx normal Neck: trachea midline, no thyromegaly Respiratory: no respiratory distress Auscultation: + diminished lung sounds (Markedly improved aeration left lung field) Cardiovascular: Rate/Rhythm: regular rate and regular rhythm Extremities: + edema (Trace only with resolved with prior finding) Chest (Breasts): Chest: + pacemaker Gastrointestinal (Abdomen): normal bowel sounds, soft, nontender, no hepatosplenomegaly Musculoskeletal: no cyanosis or clubbing, extremities motor strength 5/5 Results & Data ([facility]) Vital Signs (Past 12 Hours) Vital Signs Temp Pulse Pulse Resp BP Pulse Ox O2 Del Method 05/02/22 08:11 36.8 C 60 17 123/67 95 Room Air 05/02/22 03:18 36.6 C 63 16 123/64 92 Room Air 05/01/22 23:53 60 05/01/22 23:20 36.8 C 64 14 108/64 94 Room Air Laboratory Results Laboratory Results - last 24 hr 05/01/22 05/01/22 05/01/22 11:30 16:07 20:17 WBC RBC Hgb Hct MCV MCH MCHC RDW Std Deviation RDW Coeff of Anderson Plt Count MPV Sodium Potassium Chloride Carbon Dioxide Anion Gap BUN Creatinine Est Cr Clr Drug Dosing Est GFR ( Amer) Est GFR (Non-Af Amer) BUN/Creatinine Ratio Glucose POC Glucose 156 H 191 H 203 H Calcium Phosphorus Magnesium 05/02/22 05/02/22 05/02/22 06:14 06:14 07:17 WBC 7.54 RBC 3.33 L Hgb 8.5 L Hct 26.0 L MCV 78.1 L MCH 25.5 MCHC 32.7 RDW Std Deviation 41.8 RDW Coeff of Anderson 14.9 H Plt Count 166 MPV 9.8 Sodium 135 L Potassium 3.4 L Chloride 96 L Carbon Dioxide 33 H Anion Gap 6 BUN 33 H Creatinine 1.37 Est Cr Clr Drug Dosing 32.3 Est GFR ( Amer) 53.7 Est GFR (Non-Af Amer) 46.4 BUN/Creatinine Ratio 24.1 H Glucose 91 POC Glucose 99 Calcium 8.0 L Phosphorus 3.5 Magnesium 2.0
--- NOTE | 2022-05-02 13:26 | Pulmonology Progress Note ---
Date of Service May 02, 2022 Assessment & Plan (1) DAMON (dyspnea on exertion): (2) Pleural effusion on left: Plan Chest x-ray 04/21/2022 personally viewed: Portable film, large left-sided pleural effusion, right costophrenic and cardiophrenic infection, increased cardiac silhouette CT chest 05/02/2022 personally reviewed: Right upper lobe patchy opacity, dependent compressive atelectasis of the lingula as well as left lower lobe Small pleural effusion on the right, small to moderate on the left No mediastinal lymphadenopathy -- Left-sided pleural effusion New compared to before Under etiology is most likely CHF Never had thoracentesis done in the past 13 pounds weight gain S/p left-sided thoracentesis 04/30/2022 :-1850 mL, transudative as per lights criteria Repeat thoracentesis 05/01/2022:- 350 mL Pleural fluid: LDH 71, total protein less than 3, pH 7.44 Serum: LDH 142, total protein 5.6 COVID-19 NAAT negative --Shortness of breath Secondary to above Plan: Continue with diuresis No indication for any more thoracentesis. Left-sided pleural effusion mild to be mildly loculated. Given the significant improvement in patient's symptom, no intervention needed Does have significant left lower lobe atelectasis likely from chronic left-sided pleural effusion, aggressive incentive spirometry hopefully will open the lung up. Case was discussed with Dr. Cardenas Please note the above document was generated using voice recognition software. It may contain grammatical, syntax or spelling errors.Any formal questions or concerns about the content, text or information contained within the body of this dictation should be directly addressed to the provider for clarification. Admission and Anticipated Discharge Date Admission Date: April 29, 2022 Subjective Patient seen and examined at bedside. No acute distress, no adverse events overnight He says feeling much better when it comes to his breathing No chest pain, no headache, no dizziness Fair appetite No nausea vomiting Review of Systems 2 Review of Systems: All systems reviewed & are unremarkable except as noted in Subjective Physical Exam Physical Exam: Constitutional: No acute distress HEENT: EOMI, PERRLA Respiratory system: Decreased air entry on the left side, no wheeze, no rhonchi, positive crackles bilateral lower lobes CVS: S1-S2 positive, no murmurs or gallops Abdomen: Soft, nontender, nondistended, positive bowel sounds x4 Extremities: +2 pulses bilaterally radialis/ dorsalis pedis, no cyanosis, no edema, +2 pitting edema bilateral lower extremity Neuro: Awake alert oriented x3 Psych: Normal mood and affect G/U: No White Skin: no rashes, warm and dry Lymphatic: no cervical or axillary lymphadenopathy Results & Data Results & Data ([facility]) Vital Signs (Past 12 Hours) Vital Signs Temp Pulse Resp BP Pulse Ox O2 Del Method 05/02/22 12:20 36.6 C 67 18 132/75 96 Room Air 05/02/22 08:11 36.8 C 60 17 123/67 95 Room Air 05/02/22 03:18 36.6 C 63 16 123/64 92 Room Air PG Care Time/CCT Total # of Minutes Spent Total Time Spent with Patient: Total time spent is greater than 50% in coordination of care (as documented) at patient's floor/unit and/or counseling patient: Coding Level of Care Code 22987 Subseq Hosp Care Lvl 2 Diagnoses DAMON (dyspnea on exertion) R06.09 Pleural effusion on left J90
--- NOTE | 2022-05-02 15:22 | Discharge Summary ---
Date of Service May 02, 2022 Admission HPI Per Admitting Provider DATE OF ADMISSION: 04/29/2022. CHIEF COMPLAINT: Shortness of breath. HISTORY OF PRESENT ILLNESS: This is an 87-year-old male with past medical history significant for diabetic retinopathy, hyperlipidemia, diabetes with peripheral angiopathy, history of obstructive sleep apnea, but currently not on CPAP or oxygen, history of CAD, history of chronic systolic and diastolic CHF, history of peripheral artery disease, chronic kidney disease stage III, history of CVA, history of left bundle-branch block, history of sick sinus syndrome, status post pacemaker, history of cardiac stent placement, history of bilateral hip replacement and carotid endarterectomy, presents with shortness of breath. The patient lives at home with his , ambulates without any support. Since the last couple of weeks, he is feeling short of breath on exertion. Today, he checked his weight, he has gained 13 pounds in the last 3 weeks. He was on Lasix in summer. He no longer needed Lasix and was stopped on 01/06/2022, but he had a couple of doses left, so he took one of Lasix today and planned to see family doctor, but he could not get an appointment sooner, so he came to the ER. In the ER, he was found to have lower extremity edema and also chest x-ray showing large left pleural effusion, receiving a dose of 20 of IV Lasix in the ER. Currently, resting comfortably. While resting, he says his oxygen saturations are okay. Denies any chest pain. Denies any headache. No back pain, no neck pain, no abdominal pain, no leg pains. No earache. Has some runny nose. No sore throat, no cough, no fevers. Appetite is okay. No difficulty swallowing. He is trying to cut down salt, but sometimes eating processed foods. No diarrhea or constipation. Normal bowel and bladder movements. Afebrile. His last EF was in November 2021, EF 29%. Cardiology wanted to place him on biventricular pacemaker with or without AICD, but the patient declined at that time; seen by cardiology in November 2021. ALLERGIES: CLONIDINE. PAST MEDICAL HISTORY: As mentioned above. PAST SURGICAL HISTORY: Cardiac catheterization, injection of eye drug, laser trabeculoplasty, pacemaker insertion, cataract surgery, right thromboendar terectomy, bilateral hip replacement, umbilical hernia repair. MEDICATIONS: The patient is on aspirin 81 mg p.o. daily, hydralazine 100 mg p.o. t.i.d., Lantus 10 units subcutaneous at bedtime, lisinopril 40 mg p.o. daily, metoprolol succinate 25 mg p.o. at bedtime, multivitamins p.o. daily, nitroglycerin p.r.n., vitamin B complex 1 tablet daily. FAMILY HISTORY: Significant for brother has diabetes, sister has diabetes; father has heart disorder; mother has heart disorder; sister has hypertension; father has stroke. SOCIAL HISTORY: . Quit cigars in 1972. No alcohol use. No drug use. REVIEW OF SYSTEMS: As per HPI. Rest of review of systems is negative. Admission Exam Per Admitting Provider GENERAL: The patient is of moderate build, not in acute distress. VITAL SIGNS: Temperature 37, pulse 71, respiratory rate 18, blood pressure 163/87, oxygen 96% on room air. HEENT: Pupils equal, round and reactive to light. Oral mucosa moist. NECK: No JVD. No neck masses. No carotid bruits. CARDIOVASCULAR: S1 and S2 heard. Regular rate and rhythm. No murmur, no gallop. RESPIRATORY SYSTEM: Normal AP diameter. No accessory muscle use. Mild bibasilar crackles. No wheezing. ABDOMEN: Soft, bowel sounds present, nontender, no distention. CENTRAL NERVOUS SYSTEM: Cranial nerves II-XII grossly intact, nonfocal. EXTREMITIES: Bilateral lower extremity pedal edema +2 present, no erythema seen. Principal Diagnosis Acute on chronic systolic heart failure Dyspnea on exertion Left pleural effusion Discharge Exam GENERAL: Alert and oriented x3. NAD, on RA. HEENT: No pallor, no icterus. Pupils equal, round and reactive to light. Oral mucosa moist. NECK: No JVD, no neck masses. HEART: S1 and S2 heard. Regular rate and rhythm. No murmur, no gallop. RESPIRATORY SYSTEM: Normal AP diameter. No accessory muscle use. No wheezing, no crackles. b/b decreased breath sounds. ABDOMEN: Soft, bowel sounds present, nontender, no distention. CENTRAL NERVOUS SYSTEM: No facial droop. Speech is clear. Obeys simple commands. Moves extremities. EXTREMITIES: No edema, no erythema seen. Discharge Data Allergies Allergy/AdvReac Type Severity Reaction Status Date / Time clonidine AdvReac Severe SEVERE Verified 04/30/22 08:48 BRADYCARDIA Consultations 04/29/22 21:12 ED Decision to Admit Stat 04/30/22 08:00 Consult Cardiology Routine 04/30/22 10:06 Consult Pulmonology Routine Ordered Studies 04/30/22 11:22 US point of care ultrasound Urgent 05/01/22 13:17 US point of care ultrasound Urgent 05/02/22 08:13 CT chest diagnostic wo con Routine Hospital Course (1) Acute on chronic systolic heart failure: Plan 87 yo M was managed for the following: Acute on chronic systolic heart failure: Dyspnea on exertion Has history of ischemic cardiomyopathy with EF of 29% by echo in November 2021 Presented with shortness of breath and 13 pounds weight gain over the short- term. Cardiology on board, managing diuresis, PO lasix and aldactone. PCP in a week, cardio in 1-2 weeks, labs cbc/cmp/mg in a week. Left pleural effusion: Chest x-ray with large left-sided pleural effusion, most likely secondary to CHF. Status post left-sided thoracentesis 04/30 with 1.85 L of transudative fluid taken. Further thoracentesis 05/01 with 350 mL taken. Follow-up pleural culture. Pulmonology on board, appreciate recommendation.d/w ankush murphy for dc. Follow-up chest x-ray in 1 week upon DC. Continue with diuresis. History of ischemic cardiomyopathy: with documented EF of 29% in November of this year, echo compatible with prior echocardiogram and decreased EF of 20 to 25%. Has declined biventricular ICD in the past. Other chronic medical conditions: CAD with stent, HTN, DM type II, CKD stage III --> home meds as able DVT prophylaxis: On Lovenox CODE STATUS: Full code Patient being discharged home with following instruction at the point of discharge: Follow-up with your primary care physician within 1 week time and likely you will need blood test CBC/CMP/magnesium level. Follow-up with your cardiology in 1 to 2 weeks time. Maintain heart healthy diet, low-sodium diet [less than 2 g/day], fluid restriction of 1.5 L/day. Continue to take your diuretic medications as prescribed. You will need repeat blood test [as above] and chest x-ray in 1 week time, please coordinate with your primary care office or cardiology office for the same. Take your medications as prescribed. Please make sure that you are able to get your medications today by calling your pharmacy before you leave the hospital so that your treatment continuity is not broken. Home Health Attestation I certify that this patient is under my care and that I, or a physicians housing assistant working with me, had a face to-face encounter that meets the home health [id number] encounter requirements with this patient. The encounter with the patient was in whole, or in part, for the following medical condition, which is the primary reason for home health care (list medical condition): I certify that, based on my findings, the following services are medically necessary home health services: My clinical findings support the need for the above services because: Further, I certify that my clinical findings support that this patient is homebound (i.e. absences from home require considerable and taxing effort and are for medical reasons or amish services or infrequently or of short duration when for other reasons) because: Certification for Home Health Services: Based on the above findings, I certify that this patient is confined to the home and needs intermittent fdc care, physical therapy and/or speech therapy or continues to need occupational therapy. The patient is under my care, and I have initiated the establishment of the plan of care. This patient will be followed by a physician who will periodically review the plan of care. Total Time Total Time Spent Total Time Spent (In Minutes): 45 Discharge Plan Discharge Items Patient Disposition: Home - Self-Care Reason For Visit: SOB Discharge Diagnosis: Acute on chronic systolic heart failure Dyspnea on exertion Left pleural effusion Activity: Resume your previous activity Non-emergency contact: Primary Care Provider Call non-emergency contact if: you have any medication questions, your pain is not controlled and your temperature is above 101 Follow-up/Referrals: Wang Nieto MD [Primary Care Provider] - Diet: Carb Consistent or DM2 and Heart Healthy Addtl Attending Provider Instructions: If you and your choose to receive Meals On Wheels, please call to sign up. Addtl Starting Gate Driver Provider Instructions: Follow-up with your primary care physician within 1 week time and likely you will need blood test CBC/CMP/magnesium level. Follow-up with your cardiology in 1 to 2 weeks time. Maintain heart healthy diet, low-sodium diet [less than 2 g/day], fluid restriction of 1.5 L/day. Continue to take your diuretic medications as prescribed. You will need repeat blood test [as above] and chest x-ray in 1 week time, please coordinate with your primary care office or cardiology office for the same. Take your medications as prescribed. Please make sure that you are able to get your medications today by calling your pharmacy before you leave the hospital so that your treatment continuity is not broken. Pending Studies at Discharge: Yes (Pleural fluid culture pending) Stand-Alone Forms: My [facility], Smoking Cessation Medications and DC Order Prescriptions: New isosorbide dinitrate [Isordil] 40 mg Tablet 40 mg PO TID@0700,1200,1700 Qty: 90 0RF spironolactone 25 mg Tablet 12.5 mg PO DAILY Qty: 15 0RF furosemide 40 mg Tablet 40 mg PO QAM Qty: 30 0RF Continued nitroglycerin 0.4 mg Tablet, Sublingual 0.4 mg Sublingual UD PRN (Reason: Chest Pain) Qty: 0 Label Comments: PLACE ONE TABLET UNDER THE TONGUE EVERY 5 MINUTES NEEDED FOR CHEST PAIN. MAXIMUM 3 DOSES IN 15 MINUTES. coenzyme Q10 100 mg Capsule 100 mg PO QPM Qty: 0 multivitamin Tablet 1 tab PO QPM Qty: 0 Rx Instructions: Takes w/ meal ascorbic acid (vitamin C) 500 mg Tablet 500 mg PO BID Qty: 0 insulin glargine [Lantus Solostar U-100 Insulin] 100 unit/mL (3 mL) Insulin Pen 10 unit SUBCUT HS Qty: 0 lisinopril 40 mg Tablet 40 mg PO DAILY Qty: 0 aspirin 81 mg Tablet,Delayed Release (Dr/Ec) 81 mg PO QPM hydralazine 100 mg tablet 100 mg PO TID metoprolol succinate 25 mg tablet extended release 24 hr 25 mg PO HS vitamin B complex Tablet 1 tab PO DAILY Discharge Orders: Discharge Order (Routine); Ordered 05/02/22 Ordered By: Nadiya Edouard/Other Patient Handouts: Hypoglycemia (Low Blood Sugar), Managing Type 2 Diabetes Admission Data Admit Date/Time: 04/29/22 22:08 Attending Provider: Nadiya Cardenas Admit Provider: Nicolas Mazariegos Primary Care Provider: Wang Nieto Other Providers: Nicolas Mazariegos ; Ady Lara ; Daryl Baird ; Nishant Hope ; Nir Mccormick ; Tim Ty ; Aaron Silverman ; Iesha Riojas ; Luz Maria Bernal ; Yary Win ; Juan Manuel Handy ; Den Young ; Andres Pugh ; Isaías Chang ; Rachel Carty ; Courtney Cheatham
--- NOTE | 2022-05-02 16:51 | CT Scan Report ---
CT chest diagnostic wo con CT DOSE: 275.54 mGycm HISTORY: Left pleural effusion. Assess for septations or loculation. TECHNIQUE: Multiaxial CT images of the chest were performed without contrast. A dose lowering techni que was utilized adhering to the principles of ALARA. COMPARISON: Chest 05/02/2022. FINDINGS: There is a small right and small to moderate left pleural effusion. There may be a small lo culated component of the left pleural effusion anteriorly at the left lung base. No definite septatio ns on this noncontrast study. The heart is enlarged. Left-sided pacemaker. Decreased density within t he blood pool consistent with an anemia. Mild diffuse body wall edema. Subcentimeter mediastinal and hilar lymph nodes do not meet CT criteria for pathologic involvement. There is a small hiatus hernia. Normal caliber esophagus. Mild calcified plaque within the normal caliber thoracic aorta. There are moderate coronary artery calcifications. No significant pericardial effusion. Limited views of the up per abdomen demonstrate normal liver, spleen, and adrenal glands. No acute fractures identified. Ther e are a few tiny lucent lesions within the ribs with the largest within the left lateral third rib on image 104 measuring 3 mm. The central airways are patent. No pneumothorax. A 3 mm nodule within the left upper lobe on image 66. Peripheral consolidation within the left lung base favors round atelecta sis from the pleural effusion. Additional groundglass densities within the left lung base. There are few scattered irregular densities within the right lung most pronounced within the right upper lobe. Dominant irregular density at the right lung apex on image 58 measures 3.1 cm. This favors an atypica l/viral pneumonia. A 4 mm nodule within the right lower lobe on image 201. IMPRESSION: 1. Small to moderate left pleural effusion and a small right pleural effusion. There may be a small l oculated component to the left pleural effusion anteriorly at the left lung base. 2. Left basilar consolidation favors round atelectasis from the pleural effusion. 3. Multifocal irregular airspace opacities within the right lung and additional groundglass airspace opacities within the left lung base. This is nonspecific but favors a multifocal pneumonia. [address] follow-up recommended to ensure resolution of the right lung irregular airspace opacities. 4. No pneumothorax. 5. Cardiomegaly.. 6. A few scattered tiny lucent lesions within the ribs. ACT 112: Negative or not required by law. Electronically signed by: Arcadio Blackmon M.D. 05/02/2022 4:50 PM
== END 2022-05-02 18:49 | disposition home or self-care (01) | DRG 291 ==
LOC: ED 14:02 → SUATTDRO 22:08 → EDINP 22:08 → 2S 04-30 16:00